=== PATIENT | female | born 1955 | race Caucasian/White ===

== ENCOUNTER 2023-11-27 11:39 | Emergency (ER) | payer MEDICARE, BC, SELFPAY ==
[2023-11-27 11:40] VITALS: BP 133/74; PULSE 104; RESP 16; TEMP 36.4; O2SAT 98; BMI 33.1
--- NOTE | 2023-11-27 12:21 | MRI_ITS ---
HISTORY: acute on chronic pain, thigh weakness, lumbar discectomy 1991. TECHNIQUE: Multiplanar and multisequence MR images of the lumbar spine were obtained before and after the intravenous administration of 19 mL Clariscan. 204 images. COMPARISON: None. FINDINGS: VERTEBRAE: Vertebral body heights maintained. Degenerative bone marrow endplate changes of T12, L1, and L4-5. ALIGNMENT: No anterior or posterior subluxation. SPINAL CANAL: Normal morphology and position of the conus medullaris at T12-L1. No epidural collection or enhancing intradural extramedullary mass. INTERVERTEBRAL DISCS: T12-L1: No significant signal abnormality, posterior disc protrusion, central canal stenosis, or foraminal narrowing based on the sagittal images. L1-2: Mild disc bulge with facet arthropathy resulting in minimal narrowing of the thecal sac. No significant foraminal narrowing. L2-3: Moderate disc bulge with facet arthropathy superimposed on a developmentally narrow spinal canal resulting in severe central canal stenosis and mild left foraminal narrowing L3-4: Mild disc bulge with facet arthropathy resulting in mild central canal stenosis and bilateral foraminal narrowing. L4-5: Mild disc bulge with facet arthropathy. Left laminotomy. No significant central canal stenosis. Mild-moderate bilateral foraminal narrowing. L5-S1: Mild left paracentral disc protrusion extending into the left lateral recess with left S1 nerve root impingement, no significant central canal stenosis, and mild left foraminal narrowing. SOFT TISSUES: No paraspinal fluid collection. 4 cm right lower pole renal cyst. MRI/Spine Lumbar W/WO Contrast IMPRESSION: Degenerative disc and facet disease superimposed on a developmentally narrow spinal canal at L2-3 resulting in severe spinal canal stenosis and mild left foraminal narrowing. Multilevel degenerative disc disease with mild spinal canal stenosis and bilateral foraminal narrowing of L3-4. Postoperative and change of L4-5 with bilateral foraminal narrowing. Left paracentral disc protrusion of L5-S1 resulting in left nerve root impingement and mild left foraminal narrowing. Electronically Signed: Kellie Garza MD at 15:35 EDT ,
--- NOTE | 2023-11-27 13:01 | EDS_ITS ---
HPI History of Present Illness Chief Complaint: Back Informant: patient Narrative Narrative: Patient is a 67-year-old female visiting from [place] with her daughter presenting with worsening low back pain. Patient has a remote history of L5/S1 discectomy performed in 1991. States every once in a while her back will spasm but she has been doing well. She notes for the past 2 to 3 weeks however she is been having worsening low back pain and spasms. It is worse on the right. She denies any radiation pains. She also feels that she is getting some weakness is worsening in her bilateral thighs. Daughter notes that sometimes she seems to be dragging her feet. She actually has an appointment to see his Dr. Salinas, spine surgery next week. Patient has been taking old oxycodone as well as methocarbamol with minimal relief of her symptoms. Did recently drive here from [place] and a lot of time in the car. Did try to walk around. Does have mechanical valve as well as clotting disorder and is on Coumadin. Denies any bowel or bladder incontinence. Denies any saddle anesthesia. PFSH PFSH Home Medications ?Medication ?Instructions ?Recorded ?Last Taken ?Type oxycodone-acetaminophen 5 mg-325 1 tab PO Q8H PRN pain 3 days #10 11/27/23 Unknown Rx mg tablet (Percocet) tabs prednisone 20 mg tablet 40 mg (2 x 20 mg) PO DAILY #10 tabs 11/27/23 Unknown Rx Allergy/AdvReac Type Severity Reaction Status Date / Time latex Allergy Intermediate Itching Verified 11/27/23 11:39 Social History Smoking Status: Never smoker ROS ROS ED Constitutional Constitutional ED: Denies chills or fever(s) Cardiovascular Cardiovascular: Denies chest pain Respiratory/Chest Respiratory/Chest: Denies dyspnea Gastrointestinal Gastrointestinal: Denies constipation or diarrhea Genitourinary Genitourinary ED: Denies dysuria or hematuria Musculoskeletal Musculoskeletal: Reports back pain Integumentary Denies rash Neurologic Neurologic: Reports weakness; Denies headache(s) or paresthesias Hematologic/Lymphatic Hematologic/Lymphatic: Reports easy bleeding and easy bruising EXAM Physical Exam Const Vital Signs: 11/27/23 11:40 11/27/23 13:39 Temperature 97.5 F L Temperature Source Temporal Pulse Rate 104 H 89 Respiratory Rate 16 14 Blood Pressure 133/74 H 136/66 H Blood Pressure Mean 93 89 Pulse Ox 98 98 Oxygen Delivery Method Room Air Room Air Positive well nourished and well developed General Appearance ED: well developed and NAD HEENT Reports moist mucous membranes Neck supple Resp normal respiratory effort and clear to auscultation bilaterally Cardio regular rate and regular rhythm GI normal to inspection, nondistended, normoactive bowel sounds and soft to palpation Back/Spine normal to inspection Back/Spine Narrative: Unable to elicit patellar reflexes bilaterally. No clonus at the ankles. Patient has difficulty standing on her heels and is slightly unsteady with trying to turn in a tight pechanga. She otherwise has a steady gait. As she is able to stand on the balls of her feet. Tenderness palpation over the right L5 paraspinal area. Sensation intact in all dermatomes. Thoracic Spine / Upper Back: Negative for paraspinal muscle tenderness Lumbar Spine / Lower Back: ROM limited Neuro oriented x3 and no sensory deficits noted Sensorium / Orientation: alert Psych mental status grossly normal Skin no rashes or lesions noted and no wounds MDM MDM MDM Narrative Medical decision making narrative: Patient is evaluated for worsening back pain. Daughter notes that she seems to start to drag her feet and concerns that she is developing a foot drop. She does have some weakness trying to put her weight on her heels. She is supposed to see Dr. Salinas in 5 days. I did touch base with him and he is not a possible obtained his MRI would be very helpful. As patient is on Coumadin she is at higher risk of epidural hematoma however she has not had any recent injections. She does not have any cauda equina symptoms at this time. I was able to call for MRI and I do have availability this afternoon. Initially MRI without contrast is ordered however I was notified by the technicians that she had a some sclerosing versus osteo noted of her vertebral bodies so IV contrast was ordered on. I did also add on basic labs including CBC, BMP as well as a CRP and ESR. Lab work is largely normal except for mild anemia with a hemoglobin 10.6. I do not think is associated her presentation today. Patient is given a Lidoderm patch in the ER. Will place on a short course of prednisone and given a refill for oxycodone for further pain control. Patient and daughter agreeable this plan of care. MRI shows left paracentral disc protrusion of L5/S1 resulting in left nerve root impingement and mild left foraminal narrowing as well as postoperative pain changes and multilevel degenerative disc disease. At this time I do not think patient requires emergent decompression or surgery. I feel that she can continue to follow-up outpatient. Patient and daughter agreeable to plan of care. Patient is discharged home in improved and stable condition. Lab Data Attestation: I reviewed the patient's lab results. Labs: Laboratory Results - last 24 hr 11/27/23 13:00 WBC 5.4 RBC 3.39 L Hgb 10.6 L Hct 33.7 L MCV 99.4 H MCH 31.3 MCHC 31.5 L RDW Std Deviation 48.9 H RDW Coeff of Aretha 13.3 Plt Count 273 MPV 10.2 Immature Gran % (Auto) 0.200 Neut % (Auto) 57.0 Lymph % (Auto) 28.8 [place] % (Auto) 10.3 H Eos % (Auto) 3.0 Baso % (Auto) 0.7 Absolute Neuts (auto) 3.1 Absolute Lymphs (auto) 1.56 Nucleated RBC % 0 ESR 14 Sodium 140 Potassium 4.3 Chloride 109 H Carbon Dioxide 29.0 Anion Gap 2 L BUN 14 Creatinine 0.83 Estim Creat Clear Calc 76.69 Est GFR (MDRD) Af Amer 88 Est GFR (MDRD) Non-Af 73 BUN/Creatinine Ratio 16.8 Glucose 109 H Calcium 9.1 C-React Prot Ext Range < 2.90 Radiography Diagnostic Testing: Clinical Impression(s) from Imaging Studies Lumbar Spine MRI 11/27/23 12:21 IMPRESSION: Degenerative disc and facet disease superimposed on a developmentally narrow spinal canal at L2-3 resulting in severe spinal canal stenosis and mild left foraminal narrowing. Multilevel degenerative disc disease with mild spinal canal stenosis and bilateral foraminal narrowing of L3-4. Postoperative and change of L4-5 with bilateral foraminal narrowing. Left paracentral disc protrusion of L5-S1 resulting in left nerve root impingement and mild left foraminal narrowing. Electronically Signed: Kellie Garza MD at 15:35 EDT , Discharge Plan Triage Chief Complaint: Back ED Provider: Vivienne Martinez Dx/Rx/DC Orders Clinical Impression: Low back pain, Degenerative disc disease, lumbar Instructions: ED Back Pain (Acute or Chronic) Prescriptions: New prednisone 20 mg tablet 40 mg PO DAILY Qty: 10 0RF oxycodone-acetaminophen [Percocet] 5-325 mg tablet 1 tab PO Q8H PRN (Reason: pain) 3 Days Qty: 10 0RF Primary Care Provider: Drea Jones Referrals: Noah Salinas DO [[facility] Staff - Active Staff] - Care Physician,No Primary [Non-Staff] - Activity Restrictions/Additional Instructions: Please continue to follow-up outpatient with spine as discussed. Take medication as prescribed. Return if you have progression worsening your symptoms. Print Language: Upper Sorbian Disposition Disposition: Home, Self Care
[2023-11-27] MEDS: Lidocaine 5% Patch 1 PATCH TOPICAL (13:08)
[2023-11-27 13:39] VITALS: BP 136/66; PULSE 89; RESP 14; O2SAT 98
[2023-11-27 15:34] LABS: Anion Gap 2 (5-15); BUN 14 mg/dL (7-18); BUN/Creat Ratio 16.8 RATIO (10-20); CRP < 2.90 mg/L (0.0-3.0); Calcium,Total 9.1 mg/dL (8.5-10.1); Chloride 109 mmol/L (98-107); Creatinine, Serum 0.83 mg/dL (0.55-1.02); EST Glomerular Filtration Rate 73 mL/min (>60); Est Glom Filt Rate - Afr Amer 88 mL/min (>60); Estimated Creatinine Clearance 76.69 ml/min; Glucose 109 mg/dL (74-106); Potassium 4.3 mmol/L (3.5-5.1); Sodium Level 140 mmol/L (136-145)
[2023-11-27 15:48] LABS: Absolute Lymphocyte Count 1.56 X10^3/uL (0.83-4.51); Absolute Neutrophil Count 3.1 X10^3/uL (2.0-7.7); Basophil# 0.04 X10^3/uL; Basophil% 0.7 % (0-1); Eosinophil# 0.16 X10^3/uL; Erythrocyte Sedimentation Rate 14 mm/hr (0-30); Hematocrit 33.7 % (37-47); Hemoglobin 10.6 g/dL (12.0-15.0); Lymphocyte # 1.56 X10^3/ul (0.83-4.51); Lymphocyte % 28.8 % (19-41); Mean Corp Hgb Conc 31.5 g/dL (32-36); Mean Corpuscular Hgb 31.3 pg (27.0-32.0); Mean Corpuscular Volume 99.4 fL (81-99); Mean Platelet Vol. 10.2 fl (6.2-12.0); Monocyte# 0.56 X10^3/uL; Monocyte% 10.3 % (0-10); NRBC Flagged by Analyzer 0 % (0-5); Neutrophil # 3.09 X10^3/uL (2.7-7.7); Platelet Count 273 K/mm3 (150-450); RBC Distribution Width CV 13.3 % (11.6-14.6); RBC Distribution Width SD 48.9 fl (35.1-43.9); Red Blood Count 3.39 M/mm3 (4.2-5.4); White Blood Count 5.4 K/mm3 (4.4-11.0)
[2023-11-27 16:21] VITALS: BP 118/58; PULSE 78; RESP 16; TEMP 36.2; O2SAT 94
== END 2023-11-27 16:22 | disposition home or self-care (01) ==
PROVIDERS: Emergency Provider Emergency Medicine; Visit Provider Emergency Medicine
DX: M48.061 Spinal stenosis, lumbar region without neurogenic claudication (principal); G89.18 Other acute postprocedural pain; M51.360 Other intervertebral disc degeneration, lumbar region with discogenic back pain only; D68.9 Coagulation defect, unspecified; D64.9 Anemia, unspecified; Z79.01 Long term (current) use of anticoagulants
CPT/HCPCS: 72158; 80048; 85025; 85652; 86140; 99282; A9575; A4216

== ENCOUNTER → 2024-05-11 | Outpatient (CLI) | payer MEDICARE, BC, SELFPAY ==
--- NOTE | 2024-05-11 09:17 | RAD_ITS ---
PROCEDURE: ESOPHAGUS DUAL CONTRAST 05/11/2024 REASON FOR EXAM: DYSPHAGIA - WITH TABLET TECHNIQUE: FLUOROSCOPIC TIME: 47 seconds. FLUOROGRAPHIC IMAGES: 76 COMPARISON: None. FINDINGS: The patient ingested barium. Multiple images were obtained. The esophagus is unremarkable. No evidence of obstruction. No evidence of gastroesophageal reflux. No mass lesion is seen. The patient ingested a 12 mm tablet the barium without any difficulty. RAD/Esophagus Dual Contrast IMPRESSION: Unremarkable esophagram. Reading Location: [facility]
== END | disposition home or self-care (01) ==
LOC: RAD 09:14
PROVIDERS: Referring Provider Nurse Practitioner Acute Care; Visit Provider Nurse Practitioner Acute Care
DX: R13.10 Dysphagia, unspecified (principal)
CPT/HCPCS: 74221

== ENCOUNTER → 2024-05-12 | Outpatient (CLI) | payer MEDICARE, BC, SELFPAY ==
[2024-05-12 09:48] LABS: AST(SGOT) 23 U/L (<=31); Alanine Aminotransfer ALT/SGPT 12 U/L (<=34); Albumin, Serum 3.8 g/dL (3.4-4.8); Alkaline Phosphatase 75 U/L (35-104); Bilirubin, Direct 0.17 mg/dL (0.00-0.30); Cholesterol 177 mg/dL (<=200); Globulin 2.7 g/dL (2.2-4.2); High Density Lipoprotein 47 mg/dL; Low Density Lipoprotein Calc. 100 mg/dL; Protein, Total 6.5 g/dL (5.9-8.4); Total Bilirubin 0.37 mg/dL (0.00-1.30); Triglycerides 147 mg/dL; Very Low Density Lipoprotein 29 mg/dL (5-40); cholesterol:hdl ratio screen 3.75
== END | disposition home or self-care (01) ==
LOC: LAB 08:23
PROVIDERS: Referring Provider Internal Medicine Cardiovascular Disease; Visit Provider Internal Medicine Cardiovascular Disease
DX: E78.5 Hyperlipidemia, unspecified (principal); I35.9 Nonrheumatic aortic valve disorder, unspecified
CPT/HCPCS: 36415; 80061; 80076

== ENCOUNTER → 2024-06-10 | Outpatient (CLI) | payer MEDICARE, BC, SELFPAY ==
--- NOTE | 2024-06-10 14:50 | ECHOCS_ITS ---
Reason For Study Reason For Study: PROSTHETIC HEART VALVE Procedure This was a 2D Doppler, Color Flow transthoracic echocardiogram. The study was technically difficult. Exam performed in department. Left Ventricle Normal LV size. The left ventricular ejection fraction is 60 %. No regional wall motion abnormalities noted. Right Ventricle Normal RV size. Normal systolic function. Atria Normal left atrium. Normal right atrium. Mitral Valve Normal mitral valve. Tricuspid Valve Normal tricuspid valve. Mild (1+) tricuspid valve insufficiency. Pulmonary artery systolic pressure is 24 mmHg. Aortic Valve Peak aortic valve gradient 11.7 mmHg. Mean aortic valve gradient 7 mmHg. Bioprosthetic aortic valve. Pulmonic Valve Normal pulmonic valve. Great Vessels Normal aortic root. The pulmonary artery is normal size. Inferior vena cava collapse with respiration. Pericardium/Pleural No pericardial effusion. Medication 22 gauge I.V. with prn adaptor inserted into right arm. Diluted definity 3ml given slow IV push to enhance endocardial definition. MMode/2D Measurements & Calculations LVIDd: 4.3 cm IVSd: 1.2 cm LVOT diam: 2.0 cm LVIDs: 2.9 cm LVPWd: 1.2 cm RVDd: 3.6 cm FS: 34.2 % LVOT area: 3.1 cm2 Ao root diam: 3.3 cm asc Aorta Diam: 3.5 cm LAV(MOD- bp): 40.0 ml LAV(MOD- bp) Indexed: 20.3 ml/m2 LAV(MOD- sp2): 40.4 ml LAV(MOD- sp4): 38.6 ml SV(MOD-sp4): 53.5 ml SV(sp4- el): 56.5 ml LVAd ap4: 27.6 cm2 LVLd ap4: 6.9 cm SI(MOD-sp4): 27.2 ml/m2 EDV(MOD-sp4): 89.2 ml EDV(sp4-el): 93.7 ml LVAs ap4: 16.3 cm2 LVLs ap4: 6.0 cm ESV(MOD-sp4): 35.6 ml ESV(sp4-el): 37.2 ml EF(MOD-sp4): 60.0 % EF(sp4-el): 60.3 % LA A4 area: 15.5 cm2 LA dimension(2D): 3.5 cm RA A4 area: 14.0 cm2 TAPSE: 1.7 cm Time Measurements MV dec time: 0.30 sec Doppler Measurements & Calculations MV E max delvis: 112.2 cm/sec Lat Peak E' Delvis: 10.1 cm/sec Med Peak E' Delvis: 7.5 cm/sec MV A max delvis: 129.4 cm/sec E/E' lat: 11.1 E/E' med: 14.9 MV E/A: 0.87 Ao V2 max: 171.4 cm/sec LV V1 max: 149.2 cm/sec SV(LVOT): 102.2 ml Ao max P.7 mmHg LV V1 max P.9 mmHg Ao V2 mean: 123.8 cm/sec LV V1 mean P.7 mmHg Ao mean P.7 mmHg LV V1 mean: 100.7 cm/sec Ao V2 VTI: 36.2 cm LV V1 VTI: 33.1 cm AV (velocity ratio): 0.91 JAMIL(I,D): 2.8 cm2 JAMIL(V,D): 2.7 cm2 PA V2 max: 77.6 cm/sec TR max delvis: 226.6 cm/sec TR max P.5 mmHg ECHO/Echo Complete W/ Contrast Interpretation Summary Normal LV size. The left ventricular ejection fraction is 60 %. Pulmonary artery systolic pressure is 24 mmHg. Bioprosthetic aortic valve. Mean aortic valve gradient 7 mmHg. Contrast injection was performed. Ordering Physician: Emory Adams Referring Physician: Emory Adams Performed By: Eboni Melissa RDCS
== END | disposition home or self-care (01) ==
LOC: CVS 14:47
PROVIDERS: Referring Provider Internal Medicine Cardiovascular Disease; Visit Provider Internal Medicine Cardiovascular Disease
DX: Z95.2 Presence of prosthetic heart valve (principal)
CPT/HCPCS: 93306; Q9957; A4216; C8929

== ENCOUNTER 2024-07-02 05:27 | Day surgery (SDC) | payer MEDICARE, BC, SELFPAY ==
--- NOTE | 2024-06-30 16:45 | PAT.ANE_ITS ---
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 When Was Last Pacemaker Check QUESTION #4 FULL TEXT: You/Your Family Experience fever (hyperthermia) with Anesthesia Last Oral Intake Last Oral intake: Last Oral Intake NPO since Meds taken in AM with sips of water? Meds patient instructed to take am of surgery PONV PONV - tamping machine operator: PONV - tamping machine operator Female Yes 06/30/24 16:03 HX of Motion Sickness No 06/30/24 16:03 HX of N/V After Surgery No 06/30/24 16:03 Non-Smoker Yes 06/30/24 16:03 Duration of Surgery greater No 06/30/24 16:03 than 60 minutes Number of Risk Factors 2 06/30/24 16:03 PONV Score Moderate Risk 06/30/24 16:03 Height & Weight Height & Weight: Anesthesia: Height & Weight Height 5 ft 6 in 04/28/24 11:25 Respiratory Assessment Respiratory Assessment - tamping machine operator: Respiratory Tract Infection Hx - tamping machine operator Hx Respiratory Tract Infection No 06/30/24 16:03 STOP Sleep Apnea STOP Sleep Apnea - tamping machine operator: STOP Sleep Apnea - tamping machine operator Hx Hypertension No 06/30/24 16:03 Hx Sleep Apnea No 06/30/24 16:03 CPAP BIPAP Do you snore loudly (louder No 06/30/24 16:03 than talking or can be heard Do you often feel tired/ No 06/30/24 16:03 fatigued/ sleepy during daytime? Has anyone observed you stop No 06/30/24 16:03 breathing during sleep? STOP Results Negative 06/30/24 16:03 QUESTION #5 FULL TEXT : Do you snore loudly (louder than talking or can be heard through closed doors)? 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 Specify any problems Hx of Preganancy in last 3 No 06/30/24 16:03 Months Nurse Filling Out Transfusion VLEHMAN 06/30/24 16:03 & Questions: Date: 06/30/24 06/30/24 16:03 Time: 16:06/30/24 16:03 Patient unable to answer at this time (ie. confused, unrespo /Reproduction History /Reproductive History - tamping machine operator: /Reproductive Hx- tamping machine operator Hx Now No 06/30/24 16:03 Gestational Age (in weeks): EDC: Hx Hx Para Hx Section SAB PFSH Medical History Post-menopausal Wears glasses Alcohol use History of steroid therapy High cholesterol Back pain History of diverticulitis Gastric reflux Non-smoker History of edema History of echocardiogram Cardiology follow-up encounter retirement (current) use of anticoagulants Hypertension History of transcatheter aortic valve replacement (TAVR) Hyperlipidemia Anemia Ascending aorta dilatation Arthritis DVT (deep venous thrombosis) Factor II deficiency Home Medications ?Medication ?Instructions ?Recorded ?Last Taken ?Type aspirin 81 mg tablet,delayed 81 mg PO QDAY 03/31/24 Un known History release (Adult Aspirin Regimen) clobetasol 0.05 % topical cream 1 applic topical BID P RN ECZEMA 03/31/24 Unknown History warfarin 4 mg tablet 4 mg PO QDAY 03/31/24 Unknow n History warfarin 5 mg tablet 5 mg PO QDAY 03/31/24 Unknow n History atorvastatin 40 mg tablet 40 mg PO QDAY 04/27/24 Unkno wn History cholecalciferol (vitamin D3) 250 250 mcg PO QDAY 04/27 Unknown History mcg (10,000 unit) capsule esomeprazole magnesium 40 mg 40 mg PO QDAY #90 caps Unknown Rx capsule,delayed release gruns daily comprehensive nutrition 1 ea PO DAILY 05/19 Unknown History hydrocortisone 2.5 % topical cream 1 applic IL QD-BID PRN hemorrhoids 04/27/24 Unknown Rx with perineal applicator #30 grams (Anusol-HC) ondansetron HCl 4 mg tablet 4 mg PO .COMPLEX #5 tabs 0 04/27/24 Unknown Rx peg 3350-sod sulf,[id number] See Rx Instructions PO .COMPLEX #2 04/27/24 Unknown Rx 178.7-7.3-0.5-1.12-0.9 gram oral mL soln (Suflave) thiamine HCl (vitamin B1) 50 mg 50 mg PO QDAY 04/27/24 Unknown History tablet amoxicillin 500 mg capsule 500 mg PO ONCE #4 caps 08/19 Unknown Rx Allergy/AdvReac Type Severity Reaction Status Date / Time latex Allergy Intermediate Itching Verified 06/30/24 15:58 Family History Mother No problems noted. Father No problems noted. Surgical History History of discectomy History of cholecystectomy Social History Smoking Status: Never smoker alcohol intake: current substance use type: does not use caffeine: Yes Audit: Pertinent Findings Pertinent Findings EKG Perinent findings: April 28, 2024. Sinus rhythm. Left atrial enlargement. Poor R wave progression. Echo (EF%) pertinent findings: 06/10/2024. EF 60%. PASP is 24 mmHg. Bioprosthetic aortic valve in place. Mean aortic valve gradient is 7 mmHg. Peak gradient is 11.7 mmHg. Consult pertinent findings: April 28, 2024. Dr. Adams. 1. Aortic valve-status post SAVR in 2023. Last echo in June 2023 showed normal function and mild to moderate MR. Patient is to continue SBE prophylaxis. EKG shows sinus rhythm, left atrial enlargement, and poor R wave progression. Recheck echo. (See above) 2. Hypertension?[id number]. 3. Ascending aortic dilation?acute-status post ascending aorta repair per patient. No op report. 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 Needs to be on Coumadin Recommendation Anesthesia Recommendation Anesthesia recommendation: OPTIMIZED for anesthesia
[2024-07-02] VITALS (7 sets, daily range): BP systolic 87–122; BP diastolic 50–60; PULSE 51–85; RESP 16–18; TEMP 35.9–36.4; O2SAT 95–100; BMI 31.5
[2024-07-02] MEDS: Lactated Ringers 1,000 ML 15 ML IV (06:16)
--- NOTE | 2024-07-02 06:23 | PCM.PRE.AN2 ---
ASA Classification* ASA Classification ASA Classification: 3 Assessment & Plan Anesthesia* Anesthesia Assessment Anesthesia Assessment: Discussed sedation and/or anesthesia options, risks, benefits, and alternatives with patient/parents/legal guardian/POA. Questions invited. The patient/parents/legal guardian/POA seems to understand and agrees to proceed with anesthesia plan. Reviewed the physical assessment, medical history, allergy history and patient home medications list prior to surgery/procedure/anesthetic and documented any changes. Performed airway and anesthesia risk assessments. Anesthesia Type Anesthesia Type: MAC History Source History Obtained from:: Patient and Chart Anesthesia Focused Assessment* Temperature: 96.7 F Pulse Rate: 85 Blood Pressure: 122/54 Respiratory Rate: 16 Pulse Ox: 95 Oxygen Delivery Method: Room Air Airway Assessment Mouth opens: >3 cm Mallampati Score: IV Teeth Condition: Caps/Crowns (Patient has several crowns. They are all tight.) Neck Range of motion (ROM): Full ROM Focused Labs Anesthesia Preop lab: CBC WBC 5.4 K/mm3 (4.4-11.0) 11/27/23 13:00 11/27/23 RBC 3.39 M/mm3 (4.2-5.4) L 11/27/23 13:00 11/27/23 Hgb 10.6 g/dL (12.0-15.0) L 11/27/23 13:00 11/27/23 Hct 33.7 % (37-47) L 11/27/23 13:00 11/27/23 Plt Count 273 K/mm3 (150-450) 11/27/23 13:00 11/27/23 CHEMISTRY Potassium 4.3 mmol/L (3.5-5.1) 11/27/23 13:00 11/27/23 Sodium 140 mmol/L (136-145) 11/27/23 13:00 11/27/23 BUN 14 mg/dL (7-18) 11/27/23 13:00 11/27/23 Creatinine 0.83 mg/dL (0.55-1.02) 11/27/23 13:00 11/27/23 Glucose 109 mg/dL (74-106) H 11/27/23 13:00 11/27/23 COAG INR 2.1 06/30/24 09:11 06/30/24 Pre-Assessment Diagnosis/Proposed Procedure Planned Operative Procedure(s): EGD, COLONOSCOPY Anesthesia History Anesthesia History - benefits specialist: Anesthesia History - benefits specialist Hx Hospitalization No 06/30/24 16:03 Any Problems With Anesthesia No 06/30/24 16:03 Cholinesterase deficiency No 06/30/24 16:03 You/Your Family Experience No 06/30/24 16:03 fever (hyperthermia) with Relationship Recent Exposure to Contagious No 07/02/24 05:56 Disease Does patient have nerve No 06/30/24 16:03 stimulator Patient instructed to have device shut off --Does patient have Pacemaker No 07/02/24 05:58 or ICD? When Was Last Pacemaker Check QUESTION #4 FULL TEXT: You/Your Family Experience fever (hyperthermia) with Anesthesia Last Oral Intake Last Oral intake: Last Oral Intake NPO since 02:00 07/02/24 05:58 Meds taken in AM with sips of Yes 07/02/24 05:58 water? Meds patient instructed to take am of surgery Any additional information?: Yes NPO since: 02:00 (Patient finished prep at 2 AM.) Meds taken in AM with sips of water?: Yes Meds patient instructed to take am of surgery: Amoxicillin prophylaxis. PONV PONV - benefits specialist: PONV - benefits specialist Female Yes 06/30/24 16:03 HX of Motion Sickness No 06/30/24 16:03 HX of N/V After Surgery No 06/30/24 16:03 Non-Smoker Yes 06/30/24 16:03 Duration of Surgery greater No 06/30/24 16:03 than 60 minutes Number of Risk Factors 2 06/30/24 16:03 PONV Score Moderate Risk 06/30/24 16:03 Height & Weight Height & Weight: Anesthesia: Height & Weight Height 5 ft 6 in 07/02/24 05:58 Weight: 88.541 kg 07/02/24 05:58 Body Mass Index (BMI) 31.5 07/02/24 05:58 Respiratory Assessment Respiratory Assessment - benefits specialist: Respiratory Tract Infection Hx - benefits specialist Hx Respiratory Tract Infection No 06/30/24 16:03 STOP Sleep Apnea STOP Sleep Apnea - benefits specialist: STOP Sleep Apnea - benefits specialist Hx Hypertension No 06/30/24 16:03 Hx Sleep Apnea No 06/30/24 16:03 CPAP BIPAP Do you snore loudly (louder No 06/30/24 16:03 than talking or can be heard Do you often feel tired/ No 06/30/24 16:03 fatigued/ sleepy during daytime? Has anyone observed you stop No 06/30/24 16:03 breathing during sleep? STOP Results Negative 06/30/24 16:03 QUESTION #5 FULL TEXT : Do you snore loudly (louder than talking or can be heard through closed doors)? 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 Specify any problems Hx of Preganancy in last 3 No 06/30/24 16:03 Months Nurse Filling Out Transfusion [facility] 06/30/24 16:03 & Questions: Date: 06/30/24 06/30/24 16:03 Time: 16:05 06/30/24 16:03 Patient unable to answer at this time (ie. confused, unrespo /Reproduction History /Reproductive History - benefits specialist: /Reproductive Hx- benefits specialist Hx Now No 06/30/24 16:03 Gestational Age (in weeks): EDC: Hx Hx Para Hx Section SAB Active Medications Active Medications: Current Medications Generic Name Dose Route Start Last Admin Trade Name Freq PRN Reason Stop Dose Admin Lactated Ringer's 1,000 mls @ 15 mls/hr 07/02/24 05:45 07/02/24 06:16 IV 15 mls/hr .Q48H KRYSTLE Administration PFSH Medical History Post-menopausal Wears glasses Alcohol use History of steroid therapy High cholesterol Back pain History of diverticulitis Gastric reflux Non-smoker History of edema History of echocardiogram 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 Hypertension History of transcatheter aortic valve replacement (TAVR) Hyperlipidemia Anemia Ascending aorta dilatation Arthritis DVT (deep venous thrombosis) Factor II deficiency Home Medications ?Medication ?Instructions ?Recorded ?Last Taken ?Type aspirin 81 mg tablet,delayed 81 mg PO QDAY 03/31/24 07/01/24 History release (Adult Aspirin Regimen) clobetasol 0.05 % topical cream 1 applic topical BID PRN ECZEMA 03/31/24 Unknown History warfarin 4 mg tablet 4 mg PO QDAY 03/31/24 06/28/24 History warfarin 5 mg tablet 5 mg PO QDAY 03/31/24 06/28/24 History atorvastatin 40 mg tablet 40 mg PO QDAY 04/27/24 07/01/24 History cholecalciferol (vitamin D3) 250 250 mcg PO QDAY 04/27/24 07/01/24 History mcg (10,000 unit) capsule esomeprazole magnesium 40 mg 40 mg PO QDAY #90 caps 04/27/24 07/01/24 Rx capsule,delayed release gruns daily comprehensive nutrition 1 ea PO DAILY 04/27/24 06/30/24 History hydrocortisone 2.5 % topical cream 1 applic [place] QD-BID PRN hemorrhoids 04/27/24 Unknown Rx with perineal applicator #30 grams (Anusol-HC) ondansetron HCl 4 mg tablet 4 mg PO .COMPLEX #5 tabs 04/27/24 07/01/24 Rx peg 3350-sod sulf,hsuus-rrf-nge See Rx Instructions PO .COMPLEX #2 04/27/24 07/02/24 Rx 178.7-7.3-0.5-1.12-0.9 gram oral mL soln (Suflave) thiamine HCl (vitamin B1) 50 mg 50 mg PO QDAY 04/27/24 07/01/24 History tablet amoxicillin 500 mg capsule 500 mg PO ONCE #4 caps 06/30/24 07/02/24 05:30 Rx Allergy/AdvReac Type Severity Reaction Status Date / Time latex Allergy Intermediate Itching Verified 07/02/24 05:54 Family History Mother No problems noted. Father No problems noted. Surgical History History of discectomy History of cholecystectomy Social History Smoking Status: Never smoker alcohol intake: current substance use type: does not use caffeine: Yes Review of Systems (Anesthesia) ROS Narrative System reviewed and no additional complaints, except as documented.
--- NOTE | 2024-07-02 06:30 | EGD_PTH ---
PATIENT: RUTH CASTELLANOS LOC: EN U#:[id number] AGE/SX: 68/F ROOM: RE07/02/[address]: Dr. Williams Madison DO : 1955 BED: DIS: 07/02/2024 SPEC #: [id number] RECD: 07/02/24 10:14 STATUS: LILA RERell #: [id number] LEYLA: 07/02/24 06:[address]: Williams Madison DEPT: SURGICAL PATHOLOGY RECD BY: Biju Rankin ENTERED: 07/02/24 11:45 SP TYPE: EGD BIOPSY OTHR DR: Alisia Primary Care Phys Tissues: A - Esophagus, NOS B - COLON BIOPSY Procedures: Surgery Specimen Level IV HEADER OPERATION: Colonoscopy, EGD biopsy PRE-OP DIAGNOSIS: Personal history of colonic polyps, family history of colon cancer in mother, constipation, dysphagia TISSUE SUBMITTED: A- Distal esophagus biopsy, B- Ileocecal valve polyp biopsy MICROSCOPIC DIAGNOSIS A. Esophagus, distal, biopsy: * Squamous mucosa with reactive changes. * Columnar mucosa negative for goblet cell metaplasia. * Negative for dysplasia. B. Ileocecal valve, polyp, biopsy: * Sessile serrated lesion. MICROSCOPIC DESCRIPTION Slides are reviewed. GROSS DESCRIPTION A. Received in formalin in a container labeled with the patient's name, date of , and distal esophagus biopsy are multiple hedrick-pink fragments of mucosal tissue measuring 0.9 x 0.4 x 0.3 cm in aggregate. Submitted in toto in A1. B. Received in formalin in a container labeled with the patient's name, date of , and ileocecal valve polyp biopsy are multiple hedrick-pink fragments of mucosal tissue measuring 0.8 x 0.8 x 0.3 cm in aggregate. Submitted in toto in B1. [facility] 07-02-2024 CPT:16995t1
--- NOTE | 2024-07-02 06:48 | PCM.HP.STD ---
HPI - General General Date of Admission: 07/02/24 Date of Service: 07/02/24 Chief Complaint: dysphagia and personal h/o polyps HPI Narrative RUTH CASTELLANOS, is a 68 F who present with sChief Complaint: personal h/o colon polyps and dysphagia COLON 04/09/2019 severe diverticulosis, internal hemorrhoids - recall colon 5 years - mother with colon CA - personal h/o colon polyps - denies any bleeding - she reports having terrible trouble with hemorrhoids - pain and irritation - sitz baths daily for the past week - prior to this she was seeing blood on toilet tissue 0 but states this was not coming from the hemorrhoids - causing genital irritation - she states she saw a PROFESSOR OF BIOLOGICAL SCIENCES a year ago who recommended she stop using creams and supp and wanted her to come back in 2 weeks for biopsy - she reports she never followed up - causing terrible irritation and itching - she feels external hemorrhoids - denies any vaginal bleeding - she is on Coumadin - 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 Adams tomorrow - just moved here form [place] - daughter works in ED here at [employer] [facility] [facility] - stools are balls - has not been drinking as much water as she normally does - has not been taking gruns with bran muffins she was previously eating - had two 9lb babies - she reports she does not always have sensation with evacuation, decreased urge - she has been off Nexium since November 2023 - c/o dysphagia high in the esophagus - these episodes were not present when on Nexium - HB is manageable - denies any N/V - denies any weight loss PENDING SALE TO [facility] Medical History Post-menopausal Wears glasses Alcohol use History of steroid therapy High cholesterol Back pain History of diverticulitis Gastric reflux Non-smoker History of edema History of echocardiogram Cardiology follow-up encounter 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 (current) use of anticoagulants Hypertension History of transcatheter aortic valve replacement (TAVR) Hyperlipidemia Anemia Ascending aorta dilatation Arthritis DVT (deep venous thrombosis) Factor II deficiency Home Medications ?Medication ?Instructions ?Recorded ?Last Taken ?Type aspirin 81 mg tablet,delayed 81 mg PO QDAY 03/31/24 07/01/24 History release (Adult Aspirin Regimen) clobetasol 0.05 % topical cream 1 applic topical BID PRN ECZEMA 03/31/24 Unknown History warfarin 4 mg tablet 4 mg PO QDAY 03/31/24 06/28/24 History warfarin 5 mg tablet 5 mg PO QDAY 03/31/24 06/28/24 History atorvastatin 40 mg tablet 40 mg PO QDAY 04/27/24 07/01/24 History cholecalciferol (vitamin D3) 250 250 mcg PO QDAY 04/27/24 07/01/24 History mcg (10,000 unit) capsule esomeprazole magnesium 40 mg 40 mg PO QDAY #90 caps 04/27/24 07/01/24 Rx capsule,delayed release gruns daily comprehensive nutrition 1 ea PO DAILY 04/27/24 06/30/24 History hydrocortisone 2.5 % topical cream 1 applic [place] QD-BID PRN hemorrhoids 04/27/24 Unknown Rx with perineal applicator #30 grams (Anusol-HC) ondansetron HCl 4 mg tablet 4 mg PO .COMPLEX #5 tabs 04/27/24 07/01/24 Rx peg 3350-sod sulf,suwxy-qmr-tak See Rx Instructions PO .COMPLEX #2 04/27/24 07/02/24 Rx 178.7-7.3-0.5-1.12-0.9 gram oral mL soln (Suflave) thiamine HCl (vitamin B1) 50 mg 50 mg PO QDAY 04/27/24 07/01/24 History tablet amoxicillin 500 mg capsule 500 mg PO ONCE #4 caps 06/30/24 07/02/24 05:30 Rx Allergy/AdvReac Type Severity Reaction Status Date / Time latex Allergy Intermediate Itching Verified 07/02/24 05:54 Family History Mother No problems noted. Father No problems noted. Surgical History History of discectomy History of cholecystectomy Social History Smoking Status: Never smoker alcohol intake: current substance use type: does not use caffeine: Yes ROS Constitutional Constitutional: Denies fatigue, fever(s), poor appetite, weight gain or weight loss Gastrointestinal Gastrointestinal: Denies belching, bloating, change in bowel habits, change in stool character, chewing difficulty, coffee ground emesis, constipation, cramping, diarrhea, dyspepsia, dysphagia, early satiety, excessive flatus, fecal incontinence, heartburn, hematemesis, hematochezia, hemorrhoids, loose stools, melena, nausea, odynophagia, rectal bleeding, tenesmus, vomiting or weight changes Vital Signs Vital Signs Vital Signs: 07/02/24 05:56 07/02/24 05:58 07/02/24 06:31 Temperature 96.7 F L 96.7 F L Temperature Source Temporal Pulse Rate 85 85 Respiratory Rate 16 16 Respiratory Pattern Normal Blood Pressure 122/54 H 122/54 H Blood Pressure Mean 76 Blood Pressure Source Monitor Blood Pressure Position Semi-Fowlers Blood Pressure Location Left Arm Pulse Ox 95 95 Oxygen Delivery Method Room Air Room Air Weight Weight: 195 lb 3.2 oz Body Mass Index (BMI) 31.5 Physical Exam Const alert, oriented x3, no apparent distress and healthy appearing General Appearance: cooperative GI normal to inspection, nondistended, normoactive bowel sounds, soft to palpation, non-tender and non-distended Percussion: normal to percussion Rectal Exam: deferred Assessment & Plan Assessment/Plan (1) Dysphagia: (2) Constipation: (3) Family history of colon cancer in mother: (4) Personal history of colonic polyps: PLAN: Assessment and Plan Assessment and Plan (1) Personal history of colonic polyps: Status: Acute (2) Family history of colon cancer in mother: Status: Acute (3) Constipation: Status: Acute (4) Dysphagia: Status: Acute Orders: Orders Esophagus Dual Contrast Today R13.10 - Dysphagia, unspecified Referrals Gastroenterology K59.00 - Constipation, unspecified Medications: New hydrocortisone 2.5% (Anusol-HC) 1 applic [place] QD-BID PRN 30 grams 0RF hemorrhoids peg 3350-sod sulf,zjoy-ylr-sgi 178.7-7.3-0.5 gram (Suflave) take as directed for split dose bowel prep 2 mL 0RF ondansetron HCl 4 mg orally; two tablets PO two hours prior to start of bowel prep and one every 4 hours as needed for N/V 5 tabs 0RF esomeprazole magnesium take 30 minutes before breakfast every morning 40 mg PO QDAY 90 caps 1RF Plan 68y/o female presents for consultation with a personal history of colon polyps. Labs completed 11/27/2023 reveal HGB 10.6, normal CRP. Her family history is significant for mother with colon cancer. She complains of rectal/vaginal irritation secondary to fecal leakage secondary to hemorrhoids. She complains of difficulty with fecal evacuation and decreased sensation to have a BM. We have discussed the importance of avoiding straining with BM as well as high fiber diet with increased water intake. Lastly, she complains of upper esophageal dysphagia since discontinuing PPI. I have recommended she resume PPI and schedule Esophagram and EGD. Patient Instructions: Colonoscopy with hemorrhoid banding - Suflave EGD Esophagram with tablet - complete prior to EGD Will require approval to hold Coumadin prior to procedure Anorectal Manometry - schedule at [facility] Continue Sitz Bath Anusol RX sent to local pharmacy Avoid straining with bowel movements Flip Winkler
--- NOTE | 2024-07-02 07:37 | PCM.POST.ANE ---
Anesthesia: Postop Eval I Current Vital Signs Temperature: 97 F Pulse Rate: 72 Blood Pressure: 87/50 Respiratory Rate: 16 Pulse Ox: 97 Oxygen Delivery Method: Room Air Assessment Airway patent: Yes Spontaneous unlabored respirations: Yes Mental status: Awake nausea: No Vomiting: No Anesthesia Complication: No Fluid Hydration Crystalloid volume administer (ml): 600 Total IV fluid infused: 600 Progress Note Anesthesia document: Postop Eval 1 completed: Yes
--- NOTE | 2024-07-02 07:38 | OP.CCLET_ITS ---
07/02/2024 No Primary Care Physician Re : Upper GI endoscopy procedure for Vicente Bonds Dear Care Physician This procedure was performed on June. My impressions and recommendations are as follows: Impressions : - Z-line irregular, 40 cm from the incisors. Biopsied. - Moderate Schatzki ring. - Medium-sized hiatal hernia. - Enlarged gastric folds. - No gross lesions in the duodenal bulb. Recommendations : - Discharge patient to home. - Resume previous diet. - Continue present medications. - Await pathology results. My findings are described in the full procedure note, which is enclosed. If I can be of further assistance, please feel free to contact me at . Sincerely, Williams Madison, 07/02/2024 7:37:27 AM This report has been signed electronically.
--- NOTE | 2024-07-02 07:38 | OP.EGD_ITS ---
Patient Name: Vicente Bonds Procedure Date: 07/02/2024 6:17 AM Date of : 1955 Age: 68 Procedure: Upper GI endoscopy Indications: Dysphagia Providers: Williams Madison DO Referring MD: No Primary Care Physician Medicines: Monitored Anesthesia Care Patient Profile: This is a 68 year old female. Refer to note in patient chart for documentation of history and physical. Patient has symptoms of acute dysphagia. Complications: No immediate complications. Procedure: Pre-Anesthesia Assessment: - Prior to the procedure, a History and Physical was performed, and patient medications and allergies were reviewed. The patient is competent. The risks and benefits of the procedure and the sedation options and risks were discussed with the patient. All questions were answered and informed consent was obtained. Patient identification and proposed procedure were verified by the physician. Mental Status Examination: alert and oriented. Airway Examination: normal oropharyngeal airway and neck mobility. Respiratory Examination: clear to auscultation. CV Examination: normal. Prophylactic Antibiotics: The patient does not require prophylactic antibiotics. Prior Anticoagulants: The patient has taken no anticoagulant or antiplatelet agents except for NSAID medication. ASA Grade Assessment: II - A patient with mild systemic disease. After reviewing the risks and benefits, the patient was deemed in satisfactory condition to undergo the procedure. The anesthesia plan was to use monitored anesthesia care (MAC). Immediately prior to administration of medications, the patient was re-assessed for adequacy to receive sedatives. The heart rate, respiratory rate, oxygen saturations, blood pressure, adequacy of pulmonary ventilation, and response to care were monitored throughout the procedure. The physical status of the patient was re-assessed after the procedure. After obtaining informed consent, the endoscope was passed under direct vision. Throughout the procedure, the patient's blood pressure, pulse, and oxygen saturations were monitored continuously. The Colonoscope was introduced through the mouth, and advanced to the second part of duodenum. The upper GI endoscopy was accomplished without difficulty. The patient tolerated the procedure well. Scope In: 7:02:24 AM Scope Out: 7:06:19 AM Total Procedure Duration Time 0 hours 3 minutes 55 seconds Findings: The Z-line was irregular and was found 40 cm from the incisors. Biopsies were taken with a cold forceps for histology. Verification of patient identification for the specimen was done. Estimated blood loss was minimal. A moderate Schatzki ring was found in the lower third of the esophagus. A medium-sized hiatal hernia was present. Diffuse prominent gastric folds were found in the gastric body. No gross lesions were noted in the duodenal bulb. Impression: - Z-line irregular, 40 cm from the incisors. Biopsied. - Moderate Schatzki ring. - Medium-sized hiatal hernia. - Enlarged gastric folds. - No gross lesions in the duodenal bulb. Recommendation: - Discharge patient to home. - Resume previous diet. - Continue present medications. - Await pathology results. Procedure Code(s): --- Professional --- 12089, Esophagogastroduodenoscopy, flexible, transoral; with biopsy, single or multiple CPT copyright 2021 [employer]. All rights reserved. The codes documented in this report are preliminary and upon icd 9 coder review may be revised to meet current compliance requirements. Williams Madison DO 07/02/2024 7:37:27 AM This report has been signed electronically. Number of Addenda: 0 Note Initiated On: 07/02/2024 6:17 AM
--- NOTE | 2024-07-02 07:42 | OP.CCLET_ITS ---
07/02/2024 No Primary Care Physician Re : Colonoscopy procedure for Vicente Bonds Dear Care Physician This procedure was performed on June. My impressions and recommendations are as follows: Impressions : - Diverticulosis in the recto-sigmoid colon, in the sigmoid colon and in the descending colon. - One 10 mm polyp at the ileocecal valve, removed with a jumbo cold forceps. Resected and retrieved. - Stool at the hepatic flexure and in the cecum. Recommendations : - Discharge patient to home. - Resume previous diet. - Continue present medications. - Await pathology results. - Repeat colonoscopy in 5 years for surveillance. My findings are described in the full procedure note, which is enclosed. If I can be of further assistance, please feel free to contact me at . Sincerely, Williams Madison, 07/02/2024 7:41:42 AM This report has been signed electronically.
--- NOTE | 2024-07-02 07:42 | OP.COLON_ITS ---
Patient Name: Vicente Bonds Procedure Date: 07/02/2024 7:06 AM Date of : 1955 Age: 68 Procedure: Colonoscopy Indications: High risk colon cancer surveillance: Personal history of colonic polyps Providers: Williams Madison DO Referring MD: No Primary Care Physician Medicines: Monitored Anesthesia Care Patient Profile: This is a 68 year old female. Refer to note in patient chart for documentation of history and physical. Patient has symptoms of acute dysphagia. Last Colonoscopy: 5 years ago. Complications: No immediate complications. Procedure: Pre-Anesthesia Assessment: - Prior to the procedure, a History and Physical was performed, and patient medications and allergies were reviewed. The patient is competent. The risks and benefits of the procedure and the sedation options and risks were discussed with the patient. All questions were answered and informed consent was obtained. Patient identification and proposed procedure were verified by the physician. Mental Status Examination: alert and oriented. Airway Examination: normal oropharyngeal airway and neck mobility. Respiratory Examination: clear to auscultation. CV Examination: normal. Prophylactic Antibiotics: The patient does not require prophylactic antibiotics. Prior Anticoagulants: The patient has taken no anticoagulant or antiplatelet agents except for NSAID medication. ASA Grade Assessment: II - A patient with mild systemic disease. After reviewing the risks and benefits, the patient was deemed in satisfactory condition to undergo the procedure. The anesthesia plan was to use monitored anesthesia care (MAC). Immediately prior to administration of medications, the patient was re-assessed for adequacy to receive sedatives. The heart rate, respiratory rate, oxygen saturations, blood pressure, adequacy of pulmonary ventilation, and response to care were monitored throughout the procedure. The physical status of the patient was re-assessed after the procedure. After I obtained informed consent, the scope was passed under direct vision. Throughout the procedure, the patient's blood pressure, pulse, and oxygen saturations were monitored continuously. The Colonoscope was introduced through the anus and advanced to the cecum, identified by appendiceal orifice and ileocecal valve. The colonoscopy was performed without difficulty. The patient tolerated the procedure well. The quality of the bowel preparation was excellent. The ileocecal valve, appendiceal orifice, and rectum were photographed. Scope In: 7:08:13 AM Scope Withdrawal Time 0 hours 13 minutes 22 seconds Scope Out: 7:27:32 AM Total Procedure Duration Time 0 hours 19 minutes 19 seconds Findings: The perianal and digital rectal examinations were normal. Multiple small and large-mouthed diverticula were found in the recto-sigmoid colon, sigmoid colon and descending colon. A 10 mm polyp was found in the ileocecal valve. The polyp was sessile. The polyp was removed with a jumbo cold forceps. Resection and retrieval were complete. Verification of patient identification for the specimen was done. Estimated blood loss was minimal. Stool was found at the hepatic flexure and in the cecum. Impression: - Diverticulosis in the recto-sigmoid colon, in the sigmoid colon and in the descending colon. - One 10 mm polyp at the ileocecal valve, removed with a jumbo cold forceps. Resected and retrieved. - Stool at the hepatic flexure and in the cecum. Recommendation: - Discharge patient to home. - Resume previous diet. - Continue present medications. - Await pathology results. - Repeat colonoscopy in 5 years for surveillance. Procedure Code(s): --- Professional --- 67243, Colonoscopy, flexible; with biopsy, single or multiple CPT copyright 2021 [employer]. All rights reserved. The codes documented in this report are preliminary and upon marriage and family social worker review may be revised to meet current compliance requirements. Williams Madison DO 07/02/2024 7:41:42 AM This report has been signed electronically. Number of Addenda: 0 Note Initiated On: 07/02/2024 7:06 AM
--- NOTE | 2024-07-02 08:12 | PCM.POSTANE2 ---
Anesthesia Postop Eval I Sum Postop Eval Completion status Anesthesia document: Postop Eval 1 completed: Yes Anesthesia Postop Eval I Summary Anesthesia Postop Eval I Summary: Anesthesia Postop Eval I: Assessment Summary Airway patent Yes 07/02/24 07:38 [email or web address] Spontaneous unlabored Yes 07/02/24 07:38 [email or web address] respirations Mental status Awake 07/02/24 07:38 [email or web address] nausea No 07/02/24 07:38 [email or web address] Vomiting No 07/02/24 07:38 [email or web address] Anesthesia Postop Eval I: Fluid Summary Crystalloid volume administer 600 07/02/24 07:38 [email or web address] (ml) Colloids volume administered ( ml) Blood Product volume administered (ml) Total IV fluid infused 600 07/02/24 07:38 [email or web address] Anesthesia Postop Eval I: Summary Notes Anesthesia Complication No 07/02/24 07:38 [email or web address] Anesthesia Complication Comment: Post-operative progress note Anesthesia: Postop Eval II Evaluation Mental status: Awake and Calm Pain Level: 0 nausea: No Vomiting: No Complications Anesthesia Complication: No
== END 2024-07-02 08:09 | disposition home or self-care (01) ==
LOC: EN 05:29 → AC 05:29
PROVIDERS: Visit Provider Internal Medicine Gastroenterology
PROC: 0DJD8ZZ Inspection of Lower Intestinal Tract, Via Natural or Artificial Opening Endoscopic (ICD-10-PCS; CPT 45378; principal; 2024-07-02 06:25)
DX: Z12.11 Encounter for screening for malignant neoplasm of colon (principal); R13.10 Dysphagia, unspecified; I10 Essential (primary) hypertension; Z79.01 Long term (current) use of anticoagulants; K57.30 Diverticulosis of large intestine without perforation or abscess without bleeding; K63.5 Polyp of colon; Z86.0100 Personal history of colon polyps, unspecified; K44.9 Diaphragmatic hernia without obstruction or gangrene; E78.00 Pure hypercholesterolemia, unspecified; Z80.0 Family history of malignant neoplasm of digestive organs; Z95.2 Presence of prosthetic heart valve; Z86.718 Personal history of other venous thrombosis and embolism; Z90.49 Acquired absence of other specified parts of digestive tract; K59.00 Constipation, unspecified
CPT/HCPCS: 45380; 43239; 88305; J2405

== ENCOUNTER 2024-09-01 07:56 | Emergency (ER) | payer MEDICARE, BC, SELFPAY ==
[2024-09-01 07:57] VITALS: BP 116/93; PULSE 101; RESP 16; TEMP 35.8; O2SAT 97; BMI 32.1
--- NOTE | 2024-09-01 08:28 | VDLE_ITS ---
Reason For Study Reason For Study: LLE SWELLING RIGHT LEFT CFV is compressible, spontaneous, phasic, competent GSV is normal. and demonstrates normal augmentation. CFV is compressible, spontaneous, phasic, competent, Procedure and demonstrates normal augmentation. This is a venous duplex using B-mode, color flow and HYPERECHOIC wall thickening noticed in the Proximal spectral Doppler. FV C/W prior DVT. Exam performed portable in ED. Balance of FV is compressible, spontaneous, phasic, A preliminary report was called and/or faxed to Dr. wade and demonstrates normal augmentation. Juan @ 9 am. NON-VASCULAR ANAECHOIC STRUCTURE measuring 1.31 X 2.35cm noted in POP FOSSA SPACE. POP V is compressible, spontaneous, phasic, competent and demonstrates normal augmentation. T/P Trunk is compressible. PTV is compressible. LT PerV is compressible. VL/Venous Duplex US, Unilateral Interpretation Summary Chronic venous changes are noted in the left proximal femoral vein. The remaind er of the left lower extremity deep venous system is patent and compressible. There is no evidence of left lower ex tremity acute deep vein thrombosis. The left great saphenous vein appears patent and compressible segmentally. A non-va scular, anechoic structure is noted in the left popliteal space, measuring 1.31 cm x 2.35 cm. This probably represents a popliteal cyst. Clinical correlation is advised. The right common femoral vein is patent and compressible. Ordering Physician: Vivienne Martinez Referring Physician: NO PCP Performed By: Emeli Rangel, ABELINO, RVT
--- NOTE | 2024-09-01 09:20 | ED.VIS.LOWEX ---
HPI History of Present Illness Chief Complaint: Lower Extremity Injury Informant: patient Narrative Narrative: Patient is a 68-year-old female with history of hypertension, hyperlipidemia, factor II deficiency, DVT in the left lower extremity (in 2006) and long-term Coumadin therapy. She states the past 4 to 5 days she has had discomfort behind her left knee that is worse when she straightens out her legs and mildly uncomfortable when she walks or when she is going up and down stairs. She states she is back to go out of town on a trip and was worried she may be had a blood clot. States her INR this morning her home she was 2.2. She states some chronic swelling of her left leg compared to the right ever since her blood clot. Denies any chest pain shortness of breath. No other skin changes reported. No other complaints or concerns at this time. Denies any trauma or injury. 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 (current) use of anticoagulants Hypertension History of transcatheter aortic valve replacement (TAVR) Hyperlipidemia Anemia Ascending aorta dilatation Arthritis DVT (deep venous thrombosis) Factor II deficiency Home Medications ?Medication ?Instructions ?Recorded ?Last Taken ?Type aspirin 81 mg tablet,delayed 81 mg PO QDAY 03/31/24 07/01/24 History release (Adult Aspirin Regimen) clobetasol 0.05 % topical cream 1 applic topical BID PRN ECZEMA 03/31/24 Unknown History cholecalciferol (vitamin D3) 250 250 mcg PO QDAY 04/27/24 07/01/24 History mcg (10,000 unit) capsule esomeprazole magnesium 40 mg 40 mg PO QDAY #90 caps 04/27/24 07/01/24 Rx capsule,delayed release gruns daily comprehensive nutrition 1 ea PO DAILY 04/27/24 06/30/24 History hydrocortisone 2.5 % topical cream 1 applic MA QD-BID PRN hemorrhoids 04/27/24 Unknown Rx with perineal applicator #30 grams (Anusol-HC) thiamine HCl (vitamin B1) 50 mg 50 mg PO QDAY 04/27/24 07/01/24 History tablet amoxicillin 500 mg capsule 500 mg PO ONCE #4 caps 06/30/24 07/02/24 05:30 Rx acetaminophen 500 mg capsule 500 mg PO Q6H PRN 07/21/24 Unknown History warfarin 4 mg tablet 4 mg PO .COMPLEX #90 tabs 07/21/24 Unknown Rx warfarin 5 mg tablet 5 mg PO QDAY 07/21/24 Unknown History atorvastatin 40 mg tablet 40 mg PO QDAY #90 tabs 07/22/24 Unknown Rx Allergy/AdvReac Type Severity Reaction Status Date / Time latex Allergy Intermediate Itching Verified 07/21/24 11:17 Family History Mother No problems noted. Father No problems noted. Surgical History History of discectomy History of cholecystectomy Social History Smoking Status: Never smoker alcohol intake: current substance use type: does not use caffeine: Yes ROS ROS ED Constitutional Constitutional ED: Denies chills or fever(s) Cardiovascular Cardiovascular: Denies chest pain Respiratory/Chest Respiratory/Chest: Denies cough or dyspnea Musculoskeletal Musculoskeletal: Reports other Details: left leg pain Integumentary Denies Abrasions or rash Neurologic Neurologic: Denies paresthesias or weakness Psychiatric Psychiatric: Denies anxiety Hematologic/Lymphatic Hematologic/Lymphatic: Reports easy bleeding, easy bruising and other Details: on coumadin EXAM Physical Exam Const Vital Signs: 09/01/24 07:57 Temperature 96.4 F L Temperature Source Temporal Pulse Rate 101 H Respiratory Rate 16 Blood Pressure 116/93 H Blood Pressure Mean 100 Pulse Ox 97 Oxygen Delivery Method Room Air Positive well nourished and well developed General Appearance ED: well developed and NAD HEENT Reports moist mucous membranes Chest Wall inspection of chest normal Resp normal respiratory effort and clear to auscultation bilaterally Cardio regular rate and regular rhythm Cardio Narrative: 2+ DP pulses Extremity full ROM Extremity Narrative: Mild nonpitting edema slightly more pronounced on the left compared to the right. Compartments are soft. There are scattered varicose veins present. No joint effusion of the left knee appreciated. Normal extensor mechanism. No laxity with range of motion of the knee. Very mild discomfort palpation of the posterior aspect of the knee. General Extremety ED: Yes edema General Extremity: edema Neuro oriented x3, moves all extremities and no sensory deficits noted Sensorium / Orientation: alert Motor Exam: strength 5/5 throughout; Negative for general weakness Psych mental status grossly normal Skin no wounds Rashes: no rashes MDM MDM MDM Narrative Medical decision making narrative: Patient evaluated for atraumatic left lower leg pain that centered behind her left knee. Differential includes muscle skeletal pain, Reynaga's cyst or DVT/failure of Coumadin. Patient had her INR checked this morning so we will hold off on rechecking it in the ER as it was therapeutic. Patient is comfortable with this. Venous duplex obtained which is negative for DVT but does show small popliteal cyst. Suspect this is causing her discomfort. Counseled on compression and Tylenol. Patient be discharged home. Given return precautions. This time I think it is safe for her to travel. Discharge Plan Triage Chief Complaint: Lower Extremity Injury ED Provider: Vivienne Martinez Dx/Rx/DC Orders Clinical Impression: Acute pain of left lower extremity, Current use of buttermaker continuous churn anticoagulation, Reynaga cyst, History of deep vein thrombosis Instructions: ED Reynaga's Cyst Prescriptions: No Action clobetasol 0.05 % cream 1 applic topical BID PRN (Reason: ECZEMA) aspirin [Adult Aspirin Regimen] 81 mg tablet,delayed release (DR/EC) 81 mg PO QDAY warfarin 5 mg tablet 5 mg PO QDAY Protocol: Dose Management Condition: Saturday Dose/Route: 5 mg Instruction: 1 x 5 mg tablet Condition: Saturday Dose/Route: 6 mg Instruction: 1.5 x 4 mg tablets Condition: Saturday Dose/Route: 5 mg Instruction: 1 x 5 mg tablet Condition: Saturday Dose/Route: 6 mg Instruction: 1.5 x 4 mg tablets Condition: Dose/Route: 5 mg Instruction: 1 x 5 mg tablet Condition: Saturday Dose/Route: 6 mg Instruction: 1.5 x 4 mg tablets Condition: Saturday Dose/Route: 5 mg Instruction: 1 x 5 mg tablet Protocol Text: Adjustment Start Date: Saturday09/01/24 INR Value: 2.2 INR Date: 09/01/24 Recheck Date: 09/08/24 Patient Comments: ON HOLD FOR COLONOSCOPY Rx Instructions: Saturday, Sat, Sat gruns daily comprehensive nutrition 1 ea PO DAILY thiamine HCl (vitamin B1) 50 mg tablet 50 mg PO QDAY cholecalciferol (vitamin D3) 250 mcg (10,000 unit) capsule 250 mcg PO QDAY hydrocortisone [Anusol-HC] 2.5 % cream with perineal applicator 1 applic MA QD-BID PRN (Reason: hemorrhoids) Qty: 30 0RF esomeprazole magnesium 40 mg capsule,delayed release(DR/EC) 40 mg PO QDAY Qty: 90 1RF Rx Instructions: take 30 minutes before breakfast every morning acetaminophen 500 mg capsule 500 mg PO Q6H PRN amoxicillin 500 mg capsule 500 mg PO ONCE Qty: 4 4RF Rx Instructions: Take 4 capsules one prior to dental work or surgical procedure for mechanical valve warfarin 4 mg tablet 4 mg PO .COMPLEX Qty: 90 3RF Protocol: Dose Management Condition: Saturday Dose/Route: 5 mg Instruction: 1 x 5 mg tablet Condition: Saturday Dose/Route: 6 mg Instruction: 1.5 x 4 mg tablets Condition: Saturday Dose/Route: 5 mg Instruction: 1 x 5 mg tablet Condition: Saturday Dose/Route: 6 mg Instruction: 1.5 x 4 mg tablets Condition: Dose/Route: 5 mg Instruction: 1 x 5 mg tablet Condition: Saturday Dose/Route: 6 mg Instruction: 1.5 x 4 mg tablets Condition: Saturday Dose/Route: 5 mg Instruction: 1 x 5 mg tablet Protocol Text: Adjustment Start Date: Saturday09/01/24 INR Value: 2.2 INR Date: 09/01/24 Recheck Date: 09/08/24 Rx Instructions: 4 mg orally Take 1.5 tablets to = 6 mg on , Sat and Saturday (takes a 5mg tablet all other days of week) Please give 90 pills. atorvastatin 40 mg tablet 40 mg PO QDAY Qty: 90 3RF Primary Care Provider: Care Physician,No Primary Referrals: Care Physician,No Primary [Primary Care Provider] - Activity Restrictions/Additional Instructions: You do not have an acute blood clot in your leg today. You do have a small cyst behind your knee called a Reynaga's cyst which is likely caused your discomfort. You are safe to travel. Follow-up with your family doctor as needed. Print Language: Tajik Disposition Disposition: Home, Self Care
[2024-09-01 10:12] VITALS: BP 116/93; PULSE 101; RESP 16; TEMP 35.8; O2SAT 97
== END 2024-09-01 10:00 | disposition home or self-care (01) ==
PROVIDERS: Emergency Provider Emergency Medicine; Visit Provider Emergency Medicine
DX: I83.812 Varicose veins of left lower extremity with pain (principal); Z79.01 Long term (current) use of anticoagulants; E78.00 Pure hypercholesterolemia, unspecified; I10 Essential (primary) hypertension; M71.20 Synovial cyst of popliteal space [Baker], unspecified knee; Z86.718 Personal history of other venous thrombosis and embolism; R60.9 Edema, unspecified; Z90.49 Acquired absence of other specified parts of digestive tract; Z87.19 Personal history of other diseases of the digestive system; Z79.82 Long term (current) use of aspirin; Z95.2 Presence of prosthetic heart valve
CPT/HCPCS: 93971; 99282

== ENCOUNTER → 2024-10-20 | Outpatient (CLI) | payer MEDICARE, BC, SELFPAY ==
--- NOTE | 2024-10-20 14:58 | BD_ITS ---
PROCEDURE: DEXA BONE DENSITY STUDY 10/20/2024 REASON FOR EXAM: SCREENING F, age 68 y/o . Postmenopausal. TECHNIQUE: DEXA BONE DENSITY STUDY COMPARISON: None FINDINGS: BMD and T-SCORES Lumbar spine: 0.967 g/cm2, T-score -0.7 Levels: L1 through L4 Left femoral neck: 0.663 g/cm2, T-score -1.7 Femoral neck comparison data not recommended for monitoring change. Left total hip: 0.762 g/cm2, T-score -1.5 Right femoral neck: 0.578 g/cm2, T-score -2.4 Femoral neck comparison data not recommended for monitoring change. Right total hip: 0.777 g/cm2, T-score -1.4 The World Health Organization has defined the following categories based on bone density: Normal bone density: T-score equal to or greater than -1.0 Osteopenia: T-score between -1.0 and -2.5 Osteoporosis: T-score equal to or less than -2.5 FRAX (or Comparable) Fracture Risk Assessment: 10 Year Probability of Fracture: Major Osteoporotic Fracture: 12th% Hip Fracture: 2.4% (Note: FRAX is not to be reported in setting of normal range bone density, osteoporosis on DEXA, known history of osteoporosis, prior osteoporotic hip or vertebral fracture, or for any patient undergoing pharmacological treatment for bone loss.) The National Osteoporosis Foundation (NOF) recommends pharmacological treatment for patients with a FRAX 10-year risk of 3% or higher for a hip fracture, or 20% or higher for a major osteoporotic fracture, to prevent osteoporosis and reduce fracture risk. The patient does meet the pharmacological treatment recommendations for prevention of osteoporosis. BD/Dexa Bone Density Study IMPRESSION: OSTEOPENIA. Recommend follow-up as clinically warranted. Reading Location: [facility]
--- NOTE | 2024-10-20 14:58 | BI_ITS ---
EXAM: SCRN MAMM (CAD)W/STONE BILAT DATE: 10/20/2024 CLINICAL HISTORY: F, Age 68 y/o , SCREENING Sister with breast cancer. TECHNIQUE: Procedure Code: [id number] Modality: MG Procedure: SCRN MAMM (CAD)W/STONE BILAT COMPARISON: Prior exam(s) dated September 30, 2023.. FINDINGS: TISSUE DENSITY: The breasts are almost entirely fatty. Bilateral Breast Mammographic Findings: No significant masses, calcifications or other abnormalities are identified. No suspicious masses, areas of developing architectural distortion, or suspicious calcifications. There has been no significant interval change. BI/SCRN MAMM (CAD)W/STONE BILAT IMPRESSION: Stable bilateral screening mammogram. OVERALL FINAL ASSESSMENT BI-RADS 1: NEGATIVE. RECOMMENDATION: Routine annual follow-up in 1 Year A letter with findings and recommendations will be mailed to the patient. Reading Location: [place] [id number]
--- NOTE | 2024-10-20 15:55 | RAD_ITS ---
PROCEDURE: LEFT FOOT MIN 3 VIEWS 10/20/2024 REASON FOR EXAM: FOOT SWELLING TECHNIQUE: LEFT FOOT MIN 3 VIEWS COMPARISON: None. FINDINGS: No acute fracture or dislocation. Alignment is anatomic. Mild degenerative arthrosis of the interphalangeal joints and 1st MTP joint, with mild hallux valgus. Mild dorsal and plantar calcaneal spurring. Bipartite medial sesamoid. No aggressive osseous erosion/destruction or periosteal reaction. Generalized soft tissue swelling about the ankle and foot, predominantly at the dorsal forefoot. RAD/Foot min 3 Views IMPRESSION: No acute or aggressive osseous abnormality. Mild degenerative changes. Generalized nonspecific soft tissue swelling/edema most pronounced at the foref oot. Reading Location: [id number]
[2024-10-20 16:02] LABS: Hematocrit 38.3 % (37-47); Hemoglobin 12.7 g/dL (12.0-15.0); Immature Granulocytes Count 0.010 X10^3/uL (0.0-0.0); Mean Corp Hgb Conc 33.2 g/dL (32-36); Mean Corpuscular Volume 99.0 fL (81-99); Mean Platelet Vol. 9.2 fl (6.2-12.0); NRBC Flagged by Analyzer 0 % (0-5); Platelet Count 294 K/mm3 (150-450); RBC Distribution Width CV 12.0 % (11.6-14.6); RBC Distribution Width SD 43.8 fl (35.1-43.9); Red Blood Count 3.87 M/mm3 (4.2-5.4); White Blood Count 5.6 K/mm3 (4.4-11.0)
[2024-10-20 17:22] LABS: Magnesium 2.0 mg/dL (1.5-2.2); Vitamin D,25 Hydroxy 88.6 ng/mL (30-100)
[2024-10-20 17:27] LABS: AST(SGOT) 26 U/L (<=31); Alanine Aminotransfer ALT/SGPT 13 U/L (<=34); Albumin, Serum 3.9 g/dL (3.4-4.8); Alkaline Phosphatase 89 U/L (35-104); Anion Gap 13 (5-15); BUN 12 mg/dL (4-19); BUN/Creat Ratio 14.2 RATIO (10-20); Calcium,Total 9.3 mg/dL (7.6-11.0); Carbon Dioxide 22.9 mmol/L (21.0-32.0); Chloride 104 mmol/L (98-108); Globulin 2.9 g/dL (2.2-4.2); Glucose 102 mg/dL (70-99); Potassium 4.2 mmol/L (3.3-5.1)
--- OUTSIDE RECORDS SUMMARY | 2024-10-20 22:06 | XMS RPT_ITS | CCD ---
Author Organization [facility] Care Team Providers Care Judicial Clerk Name Role Phone Hardeep KELLER-CCiera Attending Provider Dr. Emory Adams MD Attending Provider Hardeep SHOCK ABSORPTION FLOOR LAYER-CCiera Referring Provider Care Physician, No Primary Primary Care Provider Unavailable Dr. Emory Adams MD Referring Provider Care Physician, No Primary Attending Provider Un available Dr. Gamal Boggs MD Attending Provider [phone] Care Physician, No Primary Referring Provider Un available Yari Mandujano Attending Provider Dr. Williams Madison DO Attending Provider Dr. Williams Madisno DO Other Provider [phone] Ciera Barroso Attending Provider Dr. Emory Adams MD Attending Provider Dr. Vivienne Martinez DO Emergency Provider Care Physician, No Primary Primary Care Provider Unavailable Care Physician, No Primary Attending Provider Un available Dr. Emory Adams MD Attending Provider Dr. Emory Adams MD Referring Provider Ciera Barroso Attending Provider Dr. Vivienne Martinez DO Attending Provider Dr. Vinnie Su MD Attending Provider Dr. Vivienne Martinez DO Referring Provider Lori HOFF, Dr. Marquez Attending Provider Care Physician, No Primary Primary Care Unava ilable Care Physician, No Primary Attending Unava ilable Care Physician, No Primary Primary Care Unava ilable Emory Adams Attending Unavailable Emory Adams Referring Unavailable Care Physician, No Primary Primary Care Unava ilable Emory Adams Attending Unavailable Emory Adams Referring Unavailable Care Physician, No Primary Primary Care Unava ilable Care Physician, No Primary Attending Unava ilable Care Physician, No Primary Primary Care Unava ilable Vivienne Martinez Attending Unavailable Lori, Alma Primary Care Unavailable Lori, Alma Referring Unavailable Alma Sandoval Attending Unavailable Care Physician, No Primary Referring Unava ilable Care Physician, No Primary Primary Care Unava ilable Ciera Meier Attending Unavailable Care Physician, No Primary Referring Unava ilable Williams Madison Attending Unavailable Care Physician, No Primary Primary Care Unava ilable Vivienne Martinez Attending Unavailable TATE, VIDA Primary Care Unavailable Care Physician, No Primary Primary Care Unava ilable Care Physician, No Primary Attending Unava ilable Care Physician, No Primary Attending Unava ilable Care Physician, No Primary Primary Care Unava ilable Care Physician, No Primary Attending Unava ilable Care Physician, No Primary Primary Care Unava ilable Care Physician, No Primary Attending Unava ilable Care Physician, No Primary Primary Care Unava ilable Care Physician, No Primary Primary Care Unava ilable Gamal Boggs Attending Unavailable Care Physician, No Primary Attending Unava ilable Care Physician, No Primary Primary Care Unava ilable Care Physician, No Primary Referring Unava ilable Williams Madison Attending Unavailable Williams Madison Consulting Unavailable Care Physician, No Primary Primary Care Unava ilable Ciera Meier Attending Unavailable Emory Adams Attending Unavailable Alma Sandoval Primary Care Unavailable LoriAlma joshua Attending Unavailable Care Physician, No Primary Referring Unava ilable Care Physician, No Primary Primary Care Unava ilable Alma Sandoval Attending Unavailable Care Physician, No Primary Primary Care Unava ilable Care Physician, No Primary Attending Unava ilable Care Physician, No Primary Primary Care Unava ilable Care Physician, No Primary Attending Unava ilable Care Physician, No Primary Referring Unava ilable Yari Maxwell Attending Unavailable Care Physician, No Primary Primary Care Unava ilable Care Physician, No Primary Primary Care Unava ilable Gamal Boggs Attending Unavailable Care Physician, No Primary Attending Unava ilable Care Physician, No Primary Primary Care Unava ilable Care Physician, No Primary Primary Care Unava ilable Ciera Meier Referring Unavailable Ciera Meier Attending Unavailable Care Physician, No Primary Attending Unava ilable Care Physician, No Primary Primary Care Unava ilable Care Physician, No Primary Attending Unava ilable Care Physician, No Primary Primary Care Unava ilable Care Physician, No Primary Attending Unava ilable Care Physician, No Primary Primary Care Unava ilable Care Physician, No Primary Attending Unava ilable Care Physician, No Primary Primary Care Unava ilable Care Physician, No Primary Primary Care Unava ilable Care Physician, No Primary Attending Unava ilable Alma Sandoval Primary Care Unavailable Ciear Meier Referring Unavailable Ciera Meier Attending Unavailable Allergies Allergy Classification Reported Allergen(s) Allergy Type Date of Onset Reaction(s) Facility (6 sources) Latex Allergy to substance 04-27-2024 Itching [facility] (1 source) Latex Drug allergy (disorder) 10-06-2024 [facility] Repository Medications Current Medications Medication Drug Class(es) Dates Sig (Normalized) Sig (Original) acetaminophen 500 mg oral capsule (9 sources) Start: 07-21-2024 take 1 capsule by mouth every six hours as needed Acetaminophen 500 mg capsule Active 500 mg PO EVERY 6 HOURS as needed July 21, 2024 12:00am Start: 04-27-2024 End: 06-30-2024 take 1 capsule by mouth every six hours as needed Acetaminophen 500 mg capsule Discontinued 500 mg PO EVERY 6 HOURS as needed April 27, 2024 1:00am June 30, 2024 4:02pm amoxicillin 500 mg oral capsule (5 sources) Penicillin-class Antibacterial Start: 06-30-2024 End: 10-06-2024 Amoxicillin 500 mg capsule Active 500 mg PO ONCE as needed October 06, 2024 9:58am Take 4 capsules one prior to dental work or surgical procedure for mechanical valve aspirin 81 mg delayed release oral tablet (6 sources) Platelet Aggregation Inhibitor, Nonsteroidal Anti-inflammatory Drug Start: 03-31-2024 take 1 tablet by mouth once daily Aspirin (Adult Aspirin Regimen) 81 mg tablet,delayed release (DR/EC) Active 81 mg PO daily March 31, 2024 1:00am cholecalciferol 0.25 mg oral capsule (6 sources) Vitamin D Start: 04-27-2024 take 1 capsule by mouth once daily Cholecalciferol (Vitamin D3) 250 mcg (10,000 unit) capsule Active 250 ug PO daily April 27, 2024 1:00am clobetasol propionate 0.5 mg/ml topical cream (6 sources) Corticosteroid Start: 03-31-2024 Clobetasol 0.05 % cream Active 1 NMA TOPICAL TWICE A DAY as needed for ECZEMA March 31, 2024 1:00am esomeprazole 40 mg delayed release oral capsule (6 sources) Proton Pump Inhibitor Start: 04-27-2024 take 1 capsule by mouth once daily 30 minutes before breakfast Esomeprazole Magnesium 40 mg capsule,delayed release(DR/EC) Active 40 mg PO daily 90 1 April 27, 2024 1:00am take 30 minutes before breakfast every morning gruns daily comprehensive nutrition (6 sources) Start: 04-27-2024 gruns daily comprehensive nutrition Active 1 NMA PO DAILY April 27, 2024 1:00am Start: 04-27-2024 gruns daily co mprehensive nutrition Active PO April 27, 2024 1:00am handicap placard (1 source) Start: 10-06-[address] Active 0 .ROUTE .MEDSUPPLY 1 0 October 06, 2024 12:00am Impaired physical mobility Other reduced mobility Length of time: 5 years Impaired physical mobility z74.09 hydrocortisone 25 mg/ml topical cream (6 sources) Corticosteroid Start: 04-27-2024 Hydrocortisone (Anusol-Hc) 2.5 % cream with perineal applicator Active 1 NMA RC 1 to 2 times per day as needed for hemorrhoids 30 0 April 27, 2024 1:00am thiamine 50 mg oral tablet (6 sources) Start: 04-27-2024 take 1 tablet by mouth once daily Thiamine Hcl (Vitamin B1) 50 mg tablet Active 50 mg PO daily April 27, 2024 1:00am Completed/Discontinued Medications Medication Drug Class(es) Dates Sig (Normalized) Sig (Original) acetaminophen 325 mg / oxyCODONE hydrochloride 5 mg oral tablet (6 sources) Opioid Agonist Start: 11-27-2023 End: 04-27-2024 Oxycodone-Acetaminop hen (Percocet) 5-325 mg tablet Discontinued 1 {tbl} PO Q8H as needed for pain 10 3 0 November 27, 2023 April 27, 2024 2:28pm Degeneration of intervertebral disc of lumbar region Low back pain Low back pain, unspecified atorvastatin 40 mg oral tablet (16 sources) HMG-CoA Reductase Inhibitor Start: 04-27-2024 End: 07-22-2024 take 1 tablet by mouth once daily Atorvastatin 40 mg tablet Discontinued 40 mg PO daily 90 3 July 21, 2024 2:51pm July 22, 2024 4:55pm Start: 03-31-2024 End: 04-27-2024 take 1 tablet by mouth once daily Atorvastatin 80 mg tablet Discontinued 80 mg PO daily March 31, 2024 1:00am April 27, 2024 2:27pm Bacillus Coagulans (Probiotic (B. Coagulans)) 10 billion cell capsule,delayed release(DR/EC) (6 sources) Start: 03-31-2024 End: 04-27-2024 take 10 capsules by mouth once daily Bacillus Coagulans (Probiotic (B. Coagulans)) 10 billion cell capsule,delayed release(DR/EC) Discontinued NMA PO DAILY March 31, 2024 1:00am April 27, 2024 2:28pm biotin 2.5 mg oral capsule (6 sources) Start: 03-31-2024 End: 04-27-2024 take 1 capsule by mouth once daily Biotin 2,500 mcg capsule Discontinued 2500 ug PO daily March 31, 2024 1:00am April 27, 2024 2:28pm Multivitamin tablet (6 sources) Start: 04-27-2024 End: 06-30-2024 Multivitamin tablet Discontinued 1 {tbl} PO daily April 27, 2024 1:00am June 30, 2024 4:01pm Start: 04-27-2024 Multivitamin t ablet Active 1 {tbl} PO daily April 27, 2024 1:00am ondansetron 4 mg oral tablet (6 sources) Serotonin-3 Receptor Antagonist Start: 04-27-2024 End: 07-21-2024 take 2 tablets by mouth every two hours as needed, then take 1 tablet by mouth every four hours as needed Ondansetron Hcl 4 mg tablet Discontinued 4 mg PO .COMPLEX 5 0 April 27, 2024 1:00am July 21, 2024 11:17am 4 mg orally; two tablets PO two hours prior to start of bowel prep and one every 4 hours as needed for N/V Peg 3350-Sod Sulf,Dklx-Rjs-Pbv (Suflave) 178.7-7.3-0.5 gram recon soln (6 sources) Start: 04-27-2024 End: 07-21-2024 Peg 3350-Sod Sulf,Cmsz-Xtn-Pzy (Suflave) 178.7-7.3-0.5 gram recon soln Discontinued 0 PO .COMPLEX 2 April 27, 2024 1:00am July 21, 2024 11:16am take as directed for split dose bowel prep Start: 04-27-2024 End: 07-21-2024 Peg 3350-Sod Sulf,Chlr-Pot-M ag (Suflave) 178.7-7.3-0.5 gram recon soln Discontinued 0 PO .COMPLEX 2 April 27, 2024 1:00am July 21, 2024 11:16am take as directed for split dose bowel prep Start: 04-27-2024 Peg 3350-Sod S ulf,Rkbp-Nmf-Pav (Suflave) 178.7-7.3-0.5 gram recon soln Active 0 PO .COMPLEX 2 April 27, 2024 1:00am take as directed for split dose bowel prep predniSONE 20 mg oral tablet (6 sources) Start: 11-27-2023 End: 04-27-2024 take 2 tablets by mouth once daily Prednisone 20 mg tablet Discontinued 40 mg PO DAILY 10 November 27, 2023 12:00am April 27, 2024 2:28pm warfarin sodium 4 mg oral tablet (20 sources) Vitamin K Antagonist Start: 07-21-2024 End: 07-21-2024 Warfarin 4 mg tablet Discontinued 4 mg PO .COMPLEX July 21, 2024 2:51pm July 21, 2024 2:54pm 4 mg orally Take 1.5 tablets to = 6 mg on , Sat and Saturday (takes a 5mg tablet all other days of the week, or as directed). Please give extra tablets for periodic dose changes Please contact the information source for Protocol details. Start: 07-21-2024 End: 07-21-2024 take 6 mg by mouth once daily Warfarin 4 mg tablet Dis continued 6 mg PO daily July 21, 2024 11:15am July 21, 2024 2:53pm Sun, Tue, , Sat Please contact the information source for Protocol details. Start: 03-31-2024 End: 07-21-2024 Warfarin 4 mg tablet Active 4 mg PO .COMPLEX 90 3 July 21, 2024 2:54pm 4 mg orally Take 1.5 tablets to = 6 mg on , Sat and Saturday (takes a 5mg tablet all other days of week) Please give 90 pills. Please contact the information source for Protocol details. Start: 03-31-2024 End: 07-21-2024 take 1 tablet by mouth once daily Warfarin 5 mg tablet Active 5 mg PO daily July 21, 2024 11:15am Saturday, Sat, Sat Please contact the information source for Protocol details. 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-31-2024 Chronic Disorders of lipid metabolism (11 sources) Hyperlipidemia; Translations: [Hyperlipidemia, unspecified] Onset: 5 04-28-2024 Chronic Esophageal disorders (6 sources) Gastroesophageal reflux disease; Translations: [Gastro-esophageal reflux disease without esophagitis] Onset: 5 07-21-2024 Chronic Essential hypertension (10 sources) Hypertensive disorder; Translations: [Essential (primary) hypertension] 04-28-2024 Chronic Heart valve disorders (12 sources) Aortic valve disorder; Translations: [Nonrheumatic aortic valve disorder, unspecified] Onset: 5 04-28-2024 Chronic Hemorrhoids (10 sources) Hemorrhoids; Translations: [Unspecified hemorrhoids] Onset: Episodic Nutritional deficiencies (1 source) Vitamin D deficiency, unspecified; Translations: [Vitamin D deficiency, unspecified] Onset: 5 Chronic Osteoarthritis (6 sources) Arthritis; Translations: [Unspecified osteoarthritis, unspecified site] 03-31-2024 Chronic Osteoporosis (1 source) Age-related osteoporosis without current pathological fracture; Translations: [Age-related osteoporosis without current pathological fracture] Onset: 5 Chronic Other aftercare (7 sources) Long-term current use of anticoagulant; Translations: [intermediate (current) use of anticoagulants] 06-04-2024 Episodic Other aftercare (1 source) intermediate (current) use of anticoagulants; Translations: [superintendent container terminal (current) use of anticoagulants] Onset: Episodic Other and unspecified benign neoplasm (16 sources) History of polyp of colon; Translations: [History of colonic polyps] 04-27-2024 Episodic Other connective tissue disease (2 sources) Synovial cyst of popliteal space [Reynaga], unspecified knee; Translations: [Synovial cyst of popliteal space] 09-01-2024 Episodic Other connective tissue disease (2 sources) Pain in lower limb; Translations: [Pain in left leg] 09-01-2024 Episodic Other connective tissue disease (1 source) Swelling of left foot; Translations: [Other specified soft tissue disorders] 10-06-2024 Episodic Other connective tissue disease (1 source) Other specified soft tissue disorders; Translations: [Other specified soft tissue disorders] Onset: Episodic Other connective tissue disease (1 source) Pain in left leg; Translations: [Pain in left leg] Onset: Episodic Other gastrointestinal disorders (16 sources) Constipation; Translations: [Constipation, unspecified] Episodic Other gastrointestinal disorders (14 sources) Dysphagia; Translations: [Dysphagia, unspecified] 04-27-2024 Episodic Other gastrointestinal disorders (2 sources) Incontinence of feces; Translations: [Full incontinence of feces] 07-27-2024 Episodic Other gastrointestinal disorders (1 source) Full incontinence of feces; Translations: [Full incontinence of feces] Onset: Episodic Other screening for suspected conditions (not mental disorders or infectious disease) (4 sources) Patient encounter status; Translations: [Encounter for other screening for malignant neoplasm of breast] Onset: 5 10-06-2024 Episodic Phlebitis; thrombophlebitis and thromboembolism (3 sources) H/O: Deep vein thrombosis; Translations: [Personal history of other venous thrombosis and embolism] 09-01-2024 Episodic Residual codes; unclassified (14 sources) Family history of cancer of colon; Translations: [Family history of malignant neoplasm of digestive organs] 04-27-2024 Episodic Residual codes; unclassified (2 sources) Asymptomatic menopausal state; Translations: [Asymptomatic menopausal state] Onset: 5 Episodic Spondylosis; intervertebral disc disorders; other back problems (15 sources) Degeneration of lumbar intervertebral disc; Translations: [Degeneration of intervertebral disc of lumbar region] 12-05-2023 Chronic Spondylosis; intervertebral disc disorders; other back problems (6 sources) Low back pain; Translations: [Low back pain] 12-05-2023 Episodic Unclassified (3 sources) K59.00 - Constipation, unspecified Unclassified (8 sources) M51.369 - Other intervertebral disc degeneration, lumbar region without mention of lumbar back pain or lower extremity pain Unclassified (4 sources) Degeneration of intervertebral disc of lumbar region Unclassified (1 source) Personal history of colon polyps, unspecified; Translations: [Personal history of colon polyps, unspecified] Onset: 5 Unclassified (1 source) Low back pain, unspecified; Translations: [Low back pain, unspecified] Onset: 5 Past or Other Problems Problem Classification Problem Date Documented Da te Episodic/Chronic Other gastrointestinal disorders (2 sources) Dysphagia, unspecified; Translations: [Dysphagia, unspecified] Onset: 05-20-2024 Episodic Other gastrointestinal disorders (2 sources) Constipation, unspecified; Translations: [Constipation, unspecified] Onset: 04-27-2024 Episodic Residual codes; unclassified (1 source) Family history of malignant neoplasm of digestive organs; Translations: [Family history of malignant neoplasm of digestive organs] Onset: 07-09-2024 Episodic Results Test Name Value Interpretation Reference Range Facility Internal Medicine Office Vis fatimah 10-05-2024 Internal Medicine Office Visit [facility] [address] [place] [address] OFFICE VISIT Date of Service: 10/06/24 MR#: [id number] Acct: [id number] Name: VICENTE CASTELLANOS Rep #: [id number] : 1955 Provider: Dr. Alma diaz MD Age/Sex: 68/F Location: [facility] Status: Signed Intake Vital Signs 04/28/24 11:25 07/02/24 05:58 09/01/24 07:57 10/06/24 10:04 Height 5 ft 6 in 5 ft 6 in 5 ft 6 in 5 ft 6 in Weight: 204 lb BMI 32.9 BP 136/60 H Blood Pressure Location Lt brachial Position Sitting Respiration 18 Pulse 88 Pulse Source Monitor Temp 97.8 F Temp Source Temporal Pulse Oximetry (%) 98 Oxygen Delivery Method room air Intake Visit Reasons: 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 CARE-WHG PATIENT Chief Complaint: 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 CARE- WHG PATIENT Is patient in pain?: No Allergies latex Allergy (Intermediate, Verified 10/06/24 09:58) Itching Medications ???Medication ???Instructions ???Recorded ???Confirmed ???Type aspirin 81 mg tablet,delayed 81 mg PO QDAY 03/31/24 10/06/24 Hi story release (Adult Aspirin Regimen) clobetasol 0.05 % topical cream 1 applic topical BID PRN ECZEMA 10/06/24 History cholecalciferol (vitamin D3) 250 250 mcg PO QDAY 04/27/24 10/06/24 History mcg (10,000 unit) capsule esomeprazole magnesium 40 mg 40 mg PO QDAY #90 caps 04/27/24 Rx capsule,delayed release gruns daily comprehensive nutrition 1 ea PO DAILY 04/27/24 10/06/24 History hydrocortisone 2.5 % topical cream 1 applic DE QD-BID PRN hemorrhoi ds 04/27/24 10/06/24 Rx with perineal applicator #30 grams (Anusol-HC) thiamine HCl (vitamin B1) 50 mg 50 mg PO QDAY 04/27/24 10/06/24 Hi story tablet acetaminophen 500 mg capsule 500 mg PO Q6H PRN 07/21/24 5 History warfarin 4 mg tablet 4 mg PO .COMPLEX #90 tabs 07/21/24 10/06/24 Rx warfarin 5 mg tablet 5 mg PO QDAY 07/21/24 10/06/24 His tory atorvastatin 40 mg tablet 40 mg PO QDAY #90 tabs 07/22/24 Rx amoxicillin 500 mg capsule 500 mg PO ONCE PRN 10/06/24 Histo ry handicap placard #1 ea 10/06/24 10/06/24 Rx Have you fallen in the past year?: No Nurse's Note: pt has concerns about her left ankle/foot swelling since beginning of August [facility] Medical History (Updated 10/06/24 @ 13:[address] 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 Alma Sandoval MD) History of surgical procedure History of transcatheter aortic valve replacement (TAVR) History of tonsillectomy History of hysterectomy History of colonoscopy History of cataract surgery History of discectomy History of cholecystectomy Family History (Updated 10/06/24 @ 10:[address] Alma Sandoval MD) Father Sudden cardiac , Onset Age: 40 Myocardial infarction Grandfather Myocardial infarction Grandmother Pneumonia Grandmother Myocardial infarction Mother Colon cancer Arthritis Heart disease Myocardial infarction CVA (cerebral vascular accident) Barretts esophagus Daughter Liver disease Alcoholism Daughter Age: 46 Asthma Daughter Alcoholism Cirrhosis Social History (Updated 10/06/24 @ 10:[address] 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 1. Little interest or pleasure in doing things: not at all 2. Feeling down, depressed, or hopeless: not at all 3. Trouble falling or staying asleep, or sleeping too much: more than half the days (trouble falling asleep ) 4. Feeling tired or having little energy: not at all 5. Poor appetite or overeating: not at all 6. Feeling bad about yourself - or that you are a failure or have let yourself and your family down: not at all 7. Trouble concentrating on things, such as reading (more content not included)... Normal [facility] No Panel Informationon 09-29 INR International Normalized Ratio 2.1 [facility] No Panel InformationOrdered By: Emory Adams on 09-22-2024 INR International Normalized Ratio 1.7 Low [facility] No Panel InformationOrdered By: Emory Adams on 09-17-2024 INR International Normalized Ratio 3.0 [facility] Emergency Department Summary on 09-01-2024 Emergency Department Summary [facility] Medical Records Department [address] [place] [address] Emergency Department Summary 09/01/24 MR#: [id number] Acct: [id number] Name: VICENTE CASTELLANOS Rep #: [id number] : 1955 68 From: Vivienne Martinez DO PCP: Care Physician,No Primary Status:DEP ER Location: ED HPI History of Present Illness Chief Complaint: Lower Extremity Injury Informant: patient Narrative Narrative: Patient is a 68-year-old female with history of hypertension, hyperlipidemia, factor II deficiency, DVT in the left lower extremity (in 2006) and long-term Coumadin therapy. She states the past 4 to 5 days she has had discomfort behind her left knee that is worse when she straightens out her legs and mildly uncomfortable when she walks or when she is going up and down stairs. She states she is back to go out of town on a trip and was worried she may be had a blood clot. States her INR this morning her home she was 2.2. She states some chronic swelling of her left leg compared to the right ever since her blood clot. Denies any chest pain shortness of breath. No other skin changes reported. No other complaints or concerns at this time. Denies any trauma or injury. 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 Hypertension History of transcatheter aortic valve replacement (TAVR) Hyperlipidemia Anemia Ascending aorta dilatation Arthritis DVT (deep venous thrombosis) Factor II deficiency Home Medications ???Medication ???Instructions ???Recorded ???Last Taken ???Type aspirin 81 mg tablet,delayed 81 mg PO QDAY 03/31/24 07/01/24 Hi story release (Adult Aspirin Regimen) clobetasol 0.05 % topical cream 1 applic topical BID PRN ECZEMA Unknown History cholecalciferol (vitamin D3) 250 250 mcg PO QDAY 04/27/24 07/01/24 History mcg (10,000 unit) capsule esomeprazole magnesium 40 mg 40 mg PO QDAY #90 caps 04/27/24 Rx capsule,delayed release gruns daily comprehensive nutrition 1 ea PO DAILY 04/27/24 06/30/24 History hydrocortisone 2.5 % topical cream 1 applic DE QD-BID PRN hemorrhoi ds 04/27/24 Unknown Rx with perineal applicator #30 grams (Anusol-HC) thiamine HCl (vitamin B1) 50 mg 50 mg PO QDAY 04/27/24 07/01/24 Hi story tablet amoxicillin 500 mg capsule 500 mg PO ONCE #4 caps 06/30/24 05:30 Rx acetaminophen 500 mg capsule 500 mg PO Q6H PRN 07/21/24 Unknown History warfarin 4 mg tablet 4 mg PO .COMPLEX #90 tabs 07/21/24 Unknown Rx warfarin 5 mg tablet 5 mg PO QDAY 07/21/24 Unknown Hist ory atorvastatin 40 mg tablet 40 mg PO QDAY #90 tabs 07/22/24 Un known Rx Allergy/AdvReac Type Severity Reaction Status Date / Time latex Allergy Intermediate Itching Verified 07/21/24 11:17 Family History Mother No problems noted. Father No problems noted. Surgical History History of discectomy History of cholecystectomy Social History Smoking Status: Never smoker alcohol intake: current substance use type: does not use caffeine: Yes ROS ROS ED Constitutional Constitutional ED: Denies chills or fever(s) Cardiovascular Cardiovascular: Denies chest pain Respiratory/Chest Respiratory/Chest: Denies cough or dyspnea Musculoskeletal Musculoskeletal: Reports other Details: left leg pain Integumentary Denies Abrasions or rash Neurologic Neurologic: Denies paresthesias or weakness Psychiatric Psychiatric: Denies anxiety Hematologic/Lymphatic Hematologic/Lymphatic: Reports easy bleeding, easy bruising and other Details: on coumadin EXAM Physical Exam Const Vital Signs: 09/01/24 07:57 Temperature 96.4 F L Temperature Source Temporal Pulse Rate 101 H Respiratory Rate 16 Blood Pressure 116/93 H Blood Pressure Mean 100 Pulse Ox 97 Oxygen Delivery Method Room Air Positive well nourished and well developed General Appearance ED: well developed and NAD HEENT Reports moist mucous membranes Chest Wall inspection of chest normal Resp normal respiratory effort and clear to auscultation bilaterally Cardio regular rate and regular rhythm Cardio Narrative: 2+ DP pulses Extremity full ROM Extremity Narrative: Mild nonpitting edema slightly more pronounced on the left compared to the right. Compartments are soft. There are scatte (more content not included)... Normal [facility] No Panel Informationon 09-01 INR International Normalized Ratio 2.2 [facility] Prothrombin Time w/INRon INR Normal [facility] Comment on above: Result Comment: Canpatricia whitmoreed via OM: Ordered Performed By: #### L 300.3900 ####[facility] [id number] [place], [place], [address] PROTIME Normal 11.7-14.9 [facility] Comment on above: Result Comment: Chandrakant hung via OM: Ordered Performed By: #### L 300.3900 ####[facility] [id number] [place], [address] Venous Duplex US, Unilateral on 09-01-2024 Venous Duplex US, Unilateral [facility] [address] [place] [address] Venous Duplex US, Unilateral 09/01/24 0837 MR#: [id number] Acct: [id number] Name: VICENTE CASTELLANOS Rep #: [id number] : 1955 68 From: Vinnie Su MD Attending Dr: Status: DEP ER Ordering Dr: Vivienne Martinez DO Date: 09/01/24 Location: ED Sex: F C Admitted: Reason For Study Reason For Study: LLE SWELLING RIGHT LEFT CFV is compressible, spontaneous, phasic, competent GSV is normal. and demonstrates normal augmentation. CFV is compressible, spontaneous, phasic, competent, Procedure and demonstrates normal augmentation. This is a venous duplex using B-mode, color flow and HYPERECHOIC wall thickening noticed in the Proximal spectral Doppler. FV C/W prior DVT. Exam performed portable in ED. Balance of FV is compressible, spontaneous, phasic, A preliminary report was called and/or faxed to Dr. wade and demonstrates normal augmentation. Juan @ 9 am. NON-VASCULAR ANAECHOIC STRUCTURE measuring 1.31 X 2.35cm noted in POP FOSSA SPACE. POP V is compressible, spontaneous, phasic, competent and demonstrates normal augmentation. T/P Trunk is compressible. PTV is compressible. LT PerV is compressible. VL/Venous Duplex US, Unilateral Interpretation Summary Chronic venous changes are noted in the left proximal femoral vein. The remainder of the left lower extremity deep venous system is patent and compressible. There is no evidence of left lower extremity acute deep vein thrombosis. The left great saphenous vein appears patent and compressible segmentally. A non-vascular, anechoic structure is noted in the left popliteal space, measuring 1.31 cm x 2.35 cm. This probably represents a popliteal cyst. Clinical correlation is advised. The right common femoral vein is patent and compressible. Ordering Physician: Vivienne Martinez Referring Physician: NO PCP Performed By: Emeli Rangel, RDCS, RVT 09/01/241925 Date Vinnie Su MD CC: Dr. Vivienne Martinez, DO; No Primary Care Physician Date Dictated: 09/01/24836 Date Transcribed: 09/01/241925 Adult Basic Education Manager: Signed Normal [facility] No Panel Informationon 08-25 INR International Normalized Ratio 2.7 [facility] No Panel Informationon 08-18 INR International Normalized Ratio 2.2 [facility] No Panel Informationon 08-11 INR International Normalized Ratio 2.7 [facility] No Panel Informationon 08-04 INR International Normalized Ratio 2.5 [facility] No Panel Informationon 07-28 INR International Normalized Ratio 2.8 [facility] Gastroenterology Visit Repor ton 07-21-2024 Gastroenterology Visit Report [facility] [address] [place] [address] OFFICE VISIT Date of Service: 07/21/24 MR#: [id number] Acct: [id number] Name: VICENTE CASTELLANOS Rep #: [id number] : 1955 Provider: SOHAIL jackson Age/Sex: 68/F Location: [facility] Status: Signed Intake Vital Signs 04/27/24 13:32 07/02/24 05:58 07/21/24 11:22 Height 5 ft 6 in 5 ft 6 in 5 ft 6 in Weight: 198 lb 2 oz BMI 31.9 BP 110/70 Respiration 16 Pulse 91 Pulse Oximetry (%) 94 Oxygen Delivery Method room air Intake Visit Reasons: Test Result Chief Complaint: Lumbar spine pain Celluloid Trimmer Required: No Accompanied by: Self Is patient in pain?: No Allergies latex Allergy (Intermediate, Verified 07/21/24 11:17) Itching Medications ???Medication ???Instructions ???Recorded ???Confirmed ???Type aspirin 81 mg tablet,delayed 81 mg PO QDAY 03/31/24 07/21/24 Hi story release (Adult Aspirin Regimen) clobetasol 0.05 % topical cream 1 applic topical BID PRN ECZEMA 07/21/24 History atorvastatin 40 mg tablet 40 mg PO QDAY 04/27/24 07/21/24 Hi story cholecalciferol (vitamin D3) 250 250 mcg PO QDAY 04/27/24 07/21/24 History mcg (10,000 unit) capsule esomeprazole magnesium 40 mg 40 mg PO QDAY #90 caps 04/27/24 Rx capsule,delayed release gruns daily comprehensive nutrition 1 ea PO DAILY 04/27/24 07/21/24 History hydrocortisone 2.5 % topical cream 1 applic DE QD-BID PRN hemorrhoi ds 04/27/24 07/21/24 Rx with perineal applicator #30 grams (Anusol-HC) thiamine HCl (vitamin B1) 50 mg 50 mg PO QDAY 04/27/24 07/21/24 Hi story tablet amoxicillin 500 mg capsule 500 mg PO ONCE #4 caps 06/30/24 Rx acetaminophen 500 mg capsule 500 mg PO Q6H PRN 07/21/24 5 History warfarin 4 mg tablet 6 mg PO QDAY 07/21/24 07/21/24 His tory warfarin 5 mg tablet 5 mg PO QDAY 07/21/24 07/21/24 His tory Have you fallen in the past year?: No PFSH Medical History Post-menopausal Wears glasses Alcohol use History of steroid therapy High cholesterol Back pain History of diverticulitis Gastric reflux Non-smoker History of edema History of echocardiogram Cardiology follow-up encounter intermediate (current) use of anticoagulants Hypertension History of transcatheter aortic valve replacement (TAVR) Hyperlipidemia Anemia Ascending aorta dilatation Arthritis DVT (deep venous thrombosis) Factor II deficiency Surgical History History of discectomy History of cholecystectomy Family History Mother No problems noted. Father No problems noted. Social History Smoking Status: Never smoker alcohol intake: current substance use type: does not use caffeine: Yes HPI HPI Chief Complaint: Lumbar spine pain Details: VICENTE CASTELLANOS, is a 68 F who presents to the office today for OV 04/27/2024 68y/o female presents for consultation with a personal history of colon polyps. Labs completed 11/27/2023 reveal HGB 10.6, normal CRP. Her family history is significant for mother with colon cancer. She complains of rectal/vaginal irritation secondary to fecal leakage secondary to hemorrhoids. She complains of difficulty with fecal evacuation and decreased sensation to have a BM. We have discussed the importance of avoiding straining with BM as well as high fiber diet with increased water intake. Lastly, she complains of upper esophageal dysphagia since discontinuing PPI. I have recommended she resume PPI and schedule Esophagram and EGD. Patient Instructions: Colonoscopy with hemorrhoid banding - Suflave EGD Esophagram with tablet - complete prior to EGD Will require approval to hold Coumadin prior to procedure Anorectal Manometry - schedule at [facility] Continue Sitz Bath Anusol RX sent to local pharmacy Avoid straining with bowel movements Squatty Potty ESOPHAGRAM 05/11/2024 Unremarkable EGD 07/02/2024 - negative for Rogel's - Z-line irregular, 40 cm from the incisors. Biopsied. - Moderate Schatzki ring. - Medium-sized hiatal hernia. - Enlarged gastric folds. - No gross lesions in the duodenal bulb. COLON 07/02/2024 - Sessile serrated lesion --- RECALL COLON 1 YEAR - Diverticulosis in the recto-sigmoid colon, in the sigmoid colon and in the descending colon. - One 10 mm polyp at the ileocecal valve, removed with a jumbo cold forceps. Resected and retrieved. - Stool at the hepatic flexure and in the cecum. Anorectal Manometry: completed on 07/17/2024 - we do not yet have the results - repo (more content not included)... Normal [facility] No Panel Informationon 07-21 INR International Normalized Ratio 2.8 [facility] No Panel Informationon 07-07 INR International Normalized Ratio 2.0 [facility] Colonoscopy Reporton 025 Colonoscopy Report [facility] Medical Records Department [address] [place] [address] Colonoscopy Report MR#: [id number] Acct: [id number] Name: VICENTE CASTELLANOS Rep #: [id number] : 1955 68 From: Williams Madison DO PCP: Care Physician,No Primary Status:[facility] Patient Name: Vicente Castellanos Procedure Date: 07/02/2024 7:06 AM Date of : 1955 Age: 68 Procedure: Colonoscopy Indications: High risk colon cancer surveillance: Personal history of colonic polyps Providers: Williams Madison DO Referring MD: No Primary Care Physician Medicines: Monitored Anesthesia Care Patient Profile: This is a 68 year old female. Refer to note in patient chart for documentation of history and physical. Patient has symptoms of acute dysphagia. Last Colonoscopy: 5 years ago. Complications: No immediate complications. Procedure: Pre-Anesthesia Assessment: - Prior to the procedure, a History and Physical was performed, and patient medications and allergies were reviewed. The patient is competent. The risks and benefits of the procedure and the sedation options and risks were discussed with the patient. All questions were answered and informed consent was obtained. Patient identification and proposed procedure were verified by the physician. Mental Status Examination: alert and oriented. Airway Examination: normal oropharyngeal airway and neck mobility. Respiratory Examination: clear to auscultation. CV Examination: normal. Prophylactic Antibiotics: The patient does not require prophylactic antibiotics. Prior Anticoagulants: The patient has taken no anticoagulant or antiplatelet agents except for NSAID medication. ASA Grade Assessment: II - A patient with mild systemic disease. After reviewing the risks and benefits, the patient was deemed in satisfactory condition to undergo the procedure. The anesthesia plan was to use monitored anesthesia care (MAC). Immediately prior to administration of medications, the patient was re-assessed for adequacy to receive sedatives. The heart rate, respiratory rate, oxygen saturations, blood pressure, adequacy of pulmonary ventilation, and response to care were monitored throughout the procedure. The physical status of the patient was re-assessed after the procedure. After I obtained informed consent, the scope was passed under direct vision. Throughout the procedure, the patient's blood pressure, pulse, and oxygen saturations were monitored continuously. The Colonoscope was introduced through the anus and advanced to the cecum, identified by appendiceal orifice and ileocecal valve. The colonoscopy was performed without difficulty. The patient tolerated the procedure well. The quality of the bowel preparation was excellent. The ileocecal valve, appendiceal orifice, and rectum were photographed. Scope In: 7:08:13 AM Scope Withdrawal Time 0 hours 13 minutes 22 seconds Scope Out: 7:27:32 AM Total Procedure Duration Time 0 hours 19 minutes 19 seconds Findings: The perianal and digital rectal examinations were normal. Multiple small and large-mouthed diverticula were found in the recto-sigmoid colon, sigmoid colon and descending colon. A 10 mm polyp was found in the ileocecal valve. The polyp was sessile. The polyp was removed with a jumbo cold forceps. Resection and retrieval were complete. Verification of patient identification for the specimen was done. Estimated blood loss was minimal. Stool was found at the hepatic flexure and in the cecum. Impression: - Diverticulosis in the recto-sigmoid colon, in the sigmoid colon and in the descending colon. - One 10 mm polyp at the ileocecal valve, removed with a jumbo cold forceps. Resected and retrieved. - Stool at the hepatic flexure and in the cecum. Recommendation: - Discharge patient to home. - Resume previous diet. - Continue present medications. - Await pathology results. - Repeat colonoscopy in 5 years for surveillance. Procedure Code(s): --- Professional --- 19939, Colonoscopy, flexible; with biopsy, single or multiple CPT copyright 2021 [employer]. All rights reserved. The codes documented in this report are preliminary and upon lock and dam operator review may be revised to meet current compliance requirements. Williams Madison DO 07/02/2024 7:41:42 AM This report has been signed electronically. Number of Addenda: 0 Note Initiated On: 07/02/2024 7:06 AM 07/02/24 0741 Date Williams Benedict Signature: Date (if indicated) CC: No Primary Care Physician; Williams Madison DO Date Dictated: 07/02/24 0706 Date Transcribed: Adult Basic Education Manager: DAO Signed Normal [facility] EGD Reporton 07-02-2024 EGD Report [facility] Medical Records Department [address] [place] [address] EGD Report MR#: [id number] Acct: [id number] Name: VICENTE CASTELLANOS Rep #: [id number] : 1955 68 From: Williams Madison DO PCP: Care Physician,No Primary Status:[facility] Patient Name: Vicente Castellanos Procedure Date: 07/02/2024 6:17 AM Date of : 1955 Age: 68 Procedure: Upper GI endoscopy Indications: Dysphagia Providers: Williams Madison DO Referring MD: No Primary Care Physician Medicines: Monitored Anesthesia Care Patient Profile: This is a 68 year old female. Refer to note in patient chart for documentation of history and physical. Patient has symptoms of acute dysphagia. Complications: No immediate complications. Procedure: Pre-Anesthesia Assessment: - Prior to the procedure, a History and Physical was performed, and patient medications and allergies were reviewed. The patient is competent. The risks and benefits of the procedure and the sedation options and risks were discussed with the patient. All questions were answered and informed consent was obtained. Patient identification and proposed procedure were verified by the physician. Mental Status Examination: alert and oriented. Airway Examination: normal oropharyngeal airway and neck mobility. Respiratory Examination: clear to auscultation. CV Examination: normal. Prophylactic Antibiotics: The patient does not require prophylactic antibiotics. Prior Anticoagulants: The patient has taken no anticoagulant or antiplatelet agents except for NSAID medication. ASA Grade Assessment: II - A patient with mild systemic disease. After reviewing the risks and benefits, the patient was deemed in satisfactory condition to undergo the procedure. The anesthesia plan was to use monitored anesthesia care (MAC). Immediately prior to administration of medications, the patient was re-assessed for adequacy to receive sedatives. The heart rate, respiratory rate, oxygen saturations, blood pressure, adequacy of pulmonary ventilation, and response to care were monitored throughout the procedure. The physical status of the patient was re-assessed after the procedure. After obtaining informed consent, the endoscope was passed under direct vision. Throughout the procedure, the patient's blood pressure, pulse, and oxygen saturations were monitored continuously. The Colonoscope was introduced through the mouth, and advanced to the second part of duodenum. The upper GI endoscopy was accomplished without difficulty. The patient tolerated the procedure well. Scope In: 7:02:24 AM Scope Out: 7:06:19 AM Total Procedure Duration Time 0 hours 3 minutes 55 seconds Findings: The Z-line was irregular and was found 40 cm from the incisors. Biopsies were taken with a cold forceps for histology. Verification of patient identification for the specimen was done. Estimated blood loss was minimal. A moderate Schatzki ring was found in the lower third of the esophagus. A medium-sized hiatal hernia was present. Diffuse prominent gastric folds were found in the gastric body. No gross lesions were noted in the duodenal bulb. Impression: - Z-line irregular, 40 cm from the incisors. Biopsied. - Moderate Schatzki ring. - Medium-sized hiatal hernia. - Enlarged gastric folds. - No gross lesions in the duodenal bulb. Recommendation: - Discharge patient to home. - Resume previous diet. - Continue present medications. - Await pathology results. Procedure Code(s): --- Professional --- 10842, Esophagogastroduodenosc opy, flexible, transoral; with biopsy, single or multiple CPT copyright 2021 [employer]. All rights reserved. The codes documented in this report are preliminary and upon lock and dam operator review may be revised to meet current compliance requirements. Williams Madison DO 07/02/2024 7:37:27 AM This report has been signed electronically. Number of Addenda: 0 Note Initiated On: 07/02/2024 6:17 AM 07/02/24 0738 Date Williams Bneedict Signature: Date (if indicated) CC: No Primary Care Physician; Williams Madison DO Date Dictated: 07/02/24616 Date Transcribed: Adult Basic Education Manager: DAO Signed [facility] MR/POSTOP.ANEon 07-02-2024 MR/POSTOP.[facility] Medical Records Department [address] [place] [address] Anesthesia Postop Eval I 07/02/24736 MR#: [id number] Acct: [id number] Name: VICENTE CASTELLANOS Rep #: [id number] : 1955 68 From: Bradley Joaquin PCP: Care Physician,No Primary Status:REG SDC Y Race: C Location: [place] [address] Anesthesia: Postop Eval I Current Vital Signs Temperature: 97 F Pulse Rate: 72 Blood Pressure: 87/50 Respiratory Rate: 16 Pulse Ox: 97 Oxygen Delivery Method: Room Air Assessment Airway patent: Yes Spontaneous unlabored respirations: Yes Mental status: Awake nausea: No Vomiting: No Anesthesia Complication: No Fluid Hydration Crystalloid volume administer (ml): 600 Total IV fluid infused: 600 Progress Note Anesthesia document: Postop Eval 1 completed: Yes 07/02/24737 Date Bradley Mckeonignmike Signature: Date CC: Signed [facility] MR/[id number] 07-02-2024 MR/POSTOPAN2 [facility] Medical Records Department [address] [place] [address] Anesthesia Postop Eval II 07/02/24811 MR#: [id number] Acct: [id number] Name: VICENTE CASTELLANOS Rep #: [id number] : 1955 68 From: Dmitriy Bowen MD PCP: Care Physician,No Primary Status:REG SDC Y Race: C Location: [place] [address]-1 Anesthesia Postop Eval I Sum Postop Eval Completion status Anesthesia document: Postop Eval 1 completed: Yes Anesthesia Postop Eval I Summary Anesthesia Postop Eval I Summary: Anesthesia Postop Eval I: Assessment Summary Airway patent Yes 07/02/24 07:38 [email or web address] Spontaneous unlabored Yes 07/02/24 07:38 [email or web address] respirations Mental status Awake 07/02/24 07:38 [email or web address] nausea No 07/02/24 07:38 [email or web address] Vomiting No 07/02/24 07:38 [email or web address] Anesthesia Postop Eval I: Fluid Summary Crystalloid volume administer 600 07/02/24 07:38 [email or web address] (ml) Colloids volume administered ( ml) Blood Product volume administered (ml) Total IV fluid infused 600 07/02/24 07:38 [email or web address] Anesthesia Postop Eval I: Summary Notes Anesthesia Complication No 07/02/24 07:38 [email or web address] Anesthesia Complication Comment: Post-operative progress note Anesthesia: Postop Eval II Evaluation Mental status: Awake and Calm Pain Level: 0 nausea: No Vomiting: No Complications Anesthesia Complication: No 07/02/24812 Date Dmitriy Bowen MD Cosigner Signature: Date CC: Signed Normal [facility] Surgery Specimen Level Zenia 07-02-2024 Surgery Specimen Level IV Patient Age/Sex Location Account Attending Physician VICENTE CASTELLANOS 68/F EN [id number] Williams Madison DO Specimen: [id number] Received: 07/02/24 Status: LILA Mary Num: [id number] Spec Type: EGD BIOPSY Subm Dr: Williams Madison DO HEADER OPERATION: Colonoscopy, EGD biopsy PRE-OP DIAGNOSIS: Personal history of colonic polyps, family history of colon cancer in mother, constipation, dysphagia TISSUE SUBMITTED: A- Distal esophagus biopsy, B- Ileocecal valve polyp biopsy MICROSCOPIC DIAGNOSIS A. Esophagus, distal, biopsy: * Squamous mucosa with reactive changes. * Columnar mucosa negative for goblet cell metaplasia. * Negative for dysplasia. B. Ileocecal valve, polyp, biopsy: * Sessile serrated lesion. MICROSCOPIC DESCRIPTION Slides are reviewed. GROSS DESCRIPTION A. Received in formalin in a container labeled with the patient's name, date of , and distal esophagus biopsy are multiple hedrick-pink fragments of mucosal tissue measuring 0.9 x 0.4 x 0.3 cm in aggregate. Submitted in toto in A1. B. Received in formalin in a container labeled with the patient's name, date of , and ileocecal valve polyp biopsy are multiple hedrick-pink fragments of mucosal tissue measuring 0.8 x 0.8 x 0.3 cm in aggregate. Submitted in toto in B1. [facility] 07-02-2024 CPT:69677k5 Patient Age/Sex Location Account Attending Physician VICENTE CASTELLANOS 68/F EN [id number] Williams Madison DO Signed (signature on file) Dr. Elisabeth Brandt MD 07/07/24 1213 [facility] Comment on above: Performed By: #### P SUIV ####[facility] [id number] [place], [address] MR/PAT.Rowena 06-30-2024 MR/PAT.DERRELL [facility] Medical Records Department [address] [place] [address] PAT - Anesthesia 06/30/24 1645 MR#: [id number] Acct: [id number] Name: VICENTE CASTELLANOS Rep #: [id number] : 1955 68 From: Dmitriy Bowen MD PCP: Care Physician,No Primary Status:PRE [facility] [place] Race: C Location: EN Pre-Assessment Diagnosis/Proposed Procedure Planned Operative Procedure(s): EGD, COLONOSCOPY Anesthesia History Anesthesia History - glass or mirror inspector: Anesthesia History - glass or mirror inspector Hx Hospitalization No 06/30/24 16:03 Any Problems With Anesthesia No 06/30/24 16:03 Cholinesterase deficiency No 06/30/24 16:03 You/Your Family Experience No 06/30/24 16:03 fever (hyperthermia) with Relationship Recent Exposure to Contagious Disease Does patient have nerve No 06/30/24 16:03 stimulator Patient instructed to have device shut off --Does patient have Pacemaker or ICD? When Was Last Pacemaker Check QUESTION #4 FULL TEXT: You/Your Family Experience fever (hyperthermia) with Anesthesia Last Oral Intake Last Oral intake: Last Oral Intake NPO since Meds taken in AM with sips of water? Meds patient instructed to take am of surgery PONV PONV - glass or mirror inspector: PONV - glass or mirror inspector Female Yes 06/30/24 16:03 HX of Motion Sickness No 06/30/24 16:03 HX of N/V After Surgery No 06/30/24 16:03 Non-Smoker Yes 06/30/24 16:03 Duration of Surgery greater No 06/30/24 16:03 than 60 minutes Number of Risk Factors 2 06/30/24 16:03 PONV Score Moderate Risk 06/30/24 16:03 Height Weight Height Weight: Anesthesia: Height Weight Height 5 ft 6 in 04/28/24 11:25 Respiratory Assessment Respiratory Assessment - glass or mirror inspector: Respiratory Tract Infection Hx - glass or mirror inspector Hx Respiratory Tract Infection No 06/30/24 16:03 STOP Sleep Apnea STOP Sleep Apnea - glass or mirror inspector: STOP Sleep Apnea - glass or mirror inspector Hx Hypertension No 06/30/24 16:03 Hx Sleep Apnea No 06/30/24 16:03 CPAP BIPAP Do you snore loudly (louder No 06/30/24 16:03 than talking or can be heard Do you often feel tired/ No 06/30/24 16:03 fatigued/ sleepy during daytime? Has anyone observed you stop No 06/30/24 16:03 breathing during sleep? STOP Results Negative 06/30/24 16:03 QUESTION #5 FULL TEXT : Do you snore loudly (louder than talking or can be heard through closed doors)? 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 Specify any problems Hx of Preganancy in last 3 No 06/30/24 16:03 Months Nurse Filling Out Transfusion [facility] 06/30/24 16:03 Questions: Date: 06/30/24 06/30/24 16:03 Time: 16:05 06/30/24 16:03 Patient unable to answer at this time (ie. 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 Hypertension History of transcatheter aortic valve replacement (TAVR) Hyperlipidemia Anemia Ascending aorta dilatation Arthritis DVT (deep venous thrombosis) Factor II deficiency Home Medications ???Medication ???Instructions ???Recorded ???Last Taken ???Type aspirin 81 mg tablet,delayed 81 mg PO QDAY 03/31/24 Unknown His tory release (Adult Aspirin Regimen) clobetasol 0.05 % topical cream 1 applic topical BID PRN ECZEMA Unknown History warfarin 4 mg tablet 4 mg PO QDAY 03/31/24 Unknown Hist ory warfarin 5 mg tablet 5 mg PO QDAY 03/31/24 Unknown Hist ory atorvastatin 40 mg tablet 40 mg PO QDAY 04/27/24 (more content not included)... Normal [facility] No Panel Informationon 06-30 INR International Normalized Ratio 2.1 [facility] No Panel Informationon 06-23 INR International Normalized Ratio 2.3 [facility] No Panel InformationOrdered By: Emory Adams on 06-16-2024 INR International Normalized Ratio 3.1 [facility] L/S Spine Min 4 Viewson 05-26 L/S Spine Min 4 Views [facility] Imaging Services [address] [place] [address] L/S Spine Min 4 Views MR#: [id number] Acct: [id number] Name: VICENTE CASTELLANOS Rep #: [id number] : 1955 F 68 From: Oscar Millard i DO PCP: Care Physician,No Primary Status: DEP AMB Study: L/S Spine Min 4 Views Date of Exam: 06/11/24 Exam# [id number] Ordering Dr: Yari Maxwell PROCEDURE: Lumbar spine radiographs, four views 06/11/2024 REASON FOR EXAM: Worsening chronic back pain TECHNIQUE: Four views of the lumbar spine were obtained. COMPARISON: None available FINDINGS: Four views of the lumbar spine were obtained. The bones are osteopenic. Right upper quadrant surgical clips are present. No acute lumbar vertebral body fracture. Moderate multilevel degenerative disc and facet disease in the lumbar spine, greatest at the L4-5 level. No evidence of instability on flexion and extension views. RAD/L/S Spine Min 4 Views IMPRESSION: Osteopenia. No acute bony abnormality of the lumbar spine. Moderate multilevel degenerative disc and facet disease in the lumbar spine, greatest at L4-5. No evidence of instability on flexion and extension views. Reading Location: [facility] CC: FANTASMA Shanks; No Primary Care Physician Adult Basic Education Manager: Signed Normal [facility] Orthopedic Visit Reporton Orthopedic Visit Report [facility] [address] [place] [address] 5 [place] [address] OFFICE VISIT Date of Service: 06/11/24 MR#: [id number] Acct: [id number] Name: VICENTE CASTELLANOS Rep #: [id number] : 1955 Provider: FANTASMA Shanks Age/Sex: 68/F Location: [facility] Status: Signed Intake Vital Signs 04/28/24 11:25 06/11/24 13:28 Height 5 ft 6 in 5 ft 6 in Weight: 196 lb 2 oz BMI 31.6 Intake Visit Reasons: LUMBAR SPINE Chief Complaint: Lumbar spine pain Accompanied by: Self Is patient in pain?: Yes Pain scale (1-10): 3 Allergies latex Allergy (Intermediate, Verified 06/11/24 13:32) Itching Medications ???Medication ???Instructions ???Recorded ???Confirmed ???Type aspirin 81 mg tablet,delayed 81 mg PO QDAY 03/31/24 06/11/24 Hi story release (Adult Aspirin Regimen) clobetasol 0.05 % topical cream 1 applic topical BID 03/31/2405/26 History warfarin 4 mg tablet 4 mg PO QDAY 03/31/24 06/11/24 His tory warfarin 5 mg tablet 5 mg PO QDAY 03/31/24 06/11/24 His tory acetaminophen 500 mg capsule 500 mg PO Q6H PRN 04/27/24 5 History atorvastatin 40 mg tablet 40 mg PO QDAY 04/27/24 06/11/24 Hi story cholecalciferol (vitamin D3) 250 250 mcg PO QDAY 04/27/24 06/11/24 History mcg (10,000 unit) capsule esomeprazole magnesium 40 mg 40 mg PO QDAY #90 caps 04/27/24 Rx capsule,delayed release gruns daily comprehensive nutrition PO 04/27/24 06/11/24 History hydrocortisone 2.5 % topical cream 1 applic DE QD-BID PRN hemorrhoi ds 04/27/24 06/11/24 Rx with perineal applicator #30 grams (Anusol-HC) multivitamin 1 tab PO QDAY 04/27/24 06/11/24 Hi story ondansetron HCl 4 mg tablet 4 mg PO .COMPLEX #5 tabs 04/27/24 06/11/24 Rx peg 3350-sod sulf,kugzx-ebj-eee See Rx Instructions PO .COMPLEX #2 04/27/24 06/11/24 Rx 178.7-7.3-0.5-1.12-0.9 gram oral mL soln (Suflave) thiamine HCl (vitamin B1) 50 mg 50 mg PO QDAY 04/27/24 06/11/24 Hi story tablet Have you fallen in the past year?: No PFSH Medical History intermediate (current) use of anticoagulants Hypertension History of transcatheter aortic valve replacement (TAVR) Hyperlipidemia Anemia Ascending aorta dilatation Arthritis DVT (deep venous thrombosis) Factor II deficiency Surgical History History of discectomy History of cholecystectomy Family History Mother No problems noted. Father No problems noted. Social History Smoking Status: Never smoker alcohol intake: current substance use type: does not use caffeine: Yes HPI LUMBAR SPINE Details: This documentation accurately reflects the service provided and the decisions made by , FANTASMA Shanks 06/11/24 3372. Part of today???s visit was documented by Manjinder Estrada MA, acting as scribe. VICENTE CASTELLANOS is a 68 year old F here today for lumbar spine pain. Patient is having pain in the lower back. The pain is a excruciating stabbing pain. Patient denies any falls, or injuries. Over the last 6 months she has had three different flares that have increased her pain. Says that her back pain has been going on for several years. Recently her flares have been lasting longer. Says that there is not a certain stretch or activity that causes these flares. No injections in the past. No cane or walker. Patient had a discectomy on potentially L4-5 and L5-S1 in 1991 patient is uncertain which levels. Says that after the surgery she has been more conscious with her back and activities that could increase her back pain. When bending to pick something up, or when getting in and out of bed makes the pain worse. Patient stated Dr. Salinas referred her to physical therapy. She only did 2 sessions for her back to be taught home exercise program, it did help with the pain. Patient has been currently doing exercises at home that her physical therapist Elizabet from [facility]. The patient still has a Luz Marina method back exercise booklet that she has been following. Patient is on Warfarin. She has a heart valve and Factor II deficiency. No diabetes. No breathing issues. Patient denies any smoking or doing any drugs. Patient has had some loss of feeling in the toes after her surgery. Patient states that her balance hasn't been good. Ortho Exam General General: Yes no acute distress Neurologic: Yes alert and Yes oriented x3 Spine SPINE TESTING CERVICAL THORACIC LUMBAR Musculoskeletal Strength 0=absent - 5=normal Details: Neurological exam of the lower extremities shows 5x (more content not included)... Normal [facility] Echo Complete W/ Contraston 06-10-2024 Echo Complete W/ Contrast [facility] [address] [place] [address] Echo Complete W/ Contrast 06/10/24 1458 MR#: [id number] Acct: [id number] Name: VICENTE CASTELLANOS Rep #: [id number] : 1955 68 From: Gamal Boggs MD Attending Dr: Dr. Emory Adams MD Status: MAICO MCKEON Ordering Dr: Emory Adams MD Date: 06/10/24 Location: [facility] Sex: F C Admitted: Reason For Study Reason For Study: PROSTHETIC HEART VALVE Procedure This was a 2D Doppler, Color Flow transthoracic echocardiogram. The study was technically difficult. Exam performed in department. Left Ventricle Normal LV size. The left ventricular ejection fraction is 60 %. No regional wall motion abnormalities noted. Right Ventricle Normal RV size. Normal systolic function. Atria Normal left atrium. Normal right atrium. Mitral Valve Normal mitral valve. Tricuspid Valve Normal tricuspid valve. Mild (1+) tricuspid valve insufficiency. Pulmonary artery systolic pressure is 24 mmHg. Aortic Valve Peak aortic valve gradient 11.7 mmHg. Mean aortic valve gradient 7 mmHg. Bioprosthetic aortic valve. Pulmonic Valve Normal pulmonic valve. Great Vessels Normal aortic root. The pulmonary artery is normal size. Inferior vena cava collapse with respiration. Pericardium/Pleural No pericardial effusion. Medication 22 gauge I.V. with prn adaptor inserted into right arm. Diluted definity 3ml given slow IV push to enhance endocardial definition. MMode/2D Measurements Calculations LVIDd: 4.3 cm IVSd: 1.2 cm LVOT diam: 2.0 cm LVIDs: 2.9 cm LVPWd: 1.2 cm RVDd: 3.6 cm FS: 34.2 % LVOT area: 3.1 cm2 Ao root diam: 3.3 cm asc Aorta Diam: 3.5 cm LAV(MOD-bp): 40.0 ml LAV(MOD-bp) Indexed: 20.3 ml/m2 LAV(MOD-sp2): 40.4 ml LAV(MOD-sp4): 38.6 ml SV(MOD-sp4): 53.5 ml SV(sp4-el): 56.5 ml LVAd ap4: 27.6 cm2 LVLd ap4: 6.9 cm SI(MOD-sp4): 27.2 ml/m2 EDV(MOD-sp4): 89.2 ml EDV(sp4-el): 93.7 ml LVAs ap4: 16.3 cm2 LVLs ap4: 6.0 cm ESV(MOD-sp4): 35.6 ml ESV(sp4-el): 37.2 ml EF(MOD-sp4): 60.0 % EF(sp4-el): 60.3 % LA A4 area: 15.5 cm2 LA dimension(2D): 3.5 cm RA A4 area: 14.0 cm2 TAPSE: 1.7 cm Time Measurements MV dec time: 0.30 sec Doppler Measurements Calculations MV E max chelo: 112.2 cm/sec Lat Peak E' Chelo: 10.1 cm/sec Med Peak E' Chelo: 7.5 cm/sec MV A max chelo: 129.4 cm/sec E/E' lat: 11.1 E/E' med: 14.9 MV E/A: 0.87 Ao V2 max: 171.4 cm/sec LV V1 max: 149.2 cm/sec SV(LVOT): 102.2 ml Ao max P.7 mmHg LV V1 max P.9 mmHg Ao V2 mean: 123.8 cm/sec LV V1 mean P.7 mmHg Ao mean P.7 mmHg LV V1 mean: 100.7 cm/sec Ao V2 VTI: 36.2 cm LV V1 VTI: 33.1 cm AV (velocity ratio): 0.91 JAMIL(I,D): 2.8 cm2 JAMIL(V,D): 2.7 cm2 PA V2 max: 77.6 cm/sec TR max chelo: 226.6 cm/sec TR max P.5 mmHg ECHO/Echo Complete W/ Contrast Interpretation Summary Normal LV size. The left ventricular ejection fraction is 60 %. Pulmonary artery systolic pressure is 24 mmHg. Bioprosthetic aortic valve. Mean aortic valve gradient 7 mmHg. Contrast injection was performed. Ordering Physician: Emory Adams Referring Physician: Emory Adams Performed By: Eboni Melissa RDCS 06/10/241649 Date Gamal Boggs MD CC: Dr. Emory Adams MD; No Primary Care Physician Date Dictated: 06/10/241457 Date Transcribed: 06/10/241649 Adult Basic Education Manager: Signed Normal [facility] No Panel Informationon 06-09 INR International Normalized Ratio 2.7 [facility] No Panel Informationon 06-02 INR International Normalized Ratio 2.4 [facility] Bilirubin directOrdered By: Emory Adams on 05-12-2024 Bilirubin.direct [Mass/Vol] 0.17 mg/dL 0.00-0.30 [facility] Bilirubin, totalOrdered By: Emory Adams on 05-12-2024 Bilirubin [Mass/Vol] 0.37 mg/dL 0.00-1.[address] [facility] Calculated very low density lipoprotein (VLDL) cholesterol measurementOrdered By: Emory Adams on 05-12-2024 Calculated very low density lipoprotein (VLDL) cholesterol measurement 29 mg/dL 5-40 [facility] VLDL Cholesterol 29 mg/dL 5-40 [facility] LDL calc ser/plasOrdered By: Emory Adams on 05-12-2024 Cholesterol in LDL [Mass/Vol] 100 mg/dL [facility] Comment on above: Epejijfnxb=206-516 m g/dL & Higher Khcm=302 mg/dL or greater LDL Cholesterol, Calculated 100 mg/dL [facility] Comment on above: Dvbfqffgsr=895-963 m g/dL & Higher Yztv=311 mg/dL or greater Laboratory - Chemistry and C hemistry - challengeOrdered By: Emory Adams on 05-12-2024 AST [Catalytic activity/Vol] 23 U/L <32 [facility] Lipid Profileon 05-12-2024 CHOL:HDL 3.75 Normal [facility] Comment on above: Performed By: #### L 500.4100, L500.3400 ####[facility] [address] [place], [place], [id number] Cholesterol [Mass/Vol] 177 mg/dL Normal <=200 [facility] Comment on above: Result Comment: Chol esterol level, Desirable <200 mg/dL Borderline high cholesterol 200-239 mg/dL High cholesterol >=240 mg/dL Recommendations of the NCEP Adult Treatment Panel for the following risk-cutoff thresholds for the [place] population. Performed By: #### L 500.4100, L500.3400 ####[facility] [address] [place], [address] Cholesterol in HDL [Mass/Vol] 47 mg/dL Normal [facility] Comment on above: Result Comment: Bebe onal Cholesterol Education Program (NCEP) guidelines: <40 mg/dL: Low HDL-cholesterol (major risk factor for CHD) >= 60 mg/dL: High HDL-cholesterol (negative risk factor for CHD) HDL-cholesterol is affected by a number of factors, e.g. smoking, exercise, hormones, sex and age. Performed By: #### L 500.4100, L500.3400 ####[facility] [address] [place], [address] Cholesterol in LDL [Mass/Vol] 100 mg/dL Normal [facility] Comment on above: Result Comment: Bord kmeowb=436-324 mg/dL Higher Kjwa=189 mg/dL or greater Performed By: #### L 500.4100, L500.3400 ####[facility] [address] [place], [address] Cholesterol in VLDL [Mass/Vol] 29 mg/dL Normal 5-40 [facility] Comment on above: Performed By: #### L 500.4100, L500.3400 ####[facility] [address] [place], [address] Triglyceride [Mass/Vol] 147 mg/dL Normal [facility] Comment on above: Result Comment: The drugs N-Acetylcysteine and Metamizole may falsely depress this assay. Normal range: <150 mg/dL Borderline High: 150-199 mg/dL High: 200-499 mg/dL Very High: >500 mg/dL Performed By: #### L 500.4100, L500.3400 ####[facility] [address] [place], [address] Liver Profileon 05-12-2024 Albumin [Mass/Vol] 3.8 g/dL Normal 3.4-4.8 [facility] Comment on above: Performed By: #### L 500.4100, L500.3400 ####[facility] [address] [place], [address] ALK PHOS 75 U/L Normal 35-104 [facility] Comment on above: Performed By: #### L 500.4100, L500.3400 ####[facility] [address] [place], [address] ALT [Catalytic activity/Vol] 12 U/L Normal <=34 [facility] Comment on above: Performed By: #### L 500.4100, L500.3400 ####[facility] [address] [place], [address] AST [Catalytic activity/Vol] 23 U/L Normal <=31 [facility] Comment on above: Performed By: #### L 500.4100, L500.3400 ####[facility] [address] [place], [address] Bilirubin [Mass/Vol] 0.37 mg/dL Normal 0.00-1.[address] [facility] Comment on above: Performed By: #### L 500.4100, L500.3400 ####[facility] [address] [place], [address] Bilirubin.direct [Mass/Vol] 0.17 mg/dL Normal 0.00-0.30 [facility] Comment on above: Performed By: #### L 500.4100, L500.3400 ####[facility] [address] [place], [address] Globulin (S) [Mass/Vol] 2.7 g/dL Normal 2.2-4.2 [facility] Comment on above: Performed By: #### L 500.4100, L500.3400 ####[facility] [address] [place], [address] T PROT 6.5 g/dL Normal 5.9-8.4 [facility] Comment on above: Performed By: #### L 500.4100, L500.3400 ####[facility] [address] [place], [address] Screening total cholesterol/ high density lipoprotein (HDL) cholesterol ratioOrdered By: Emory Adams on 05-12-2024 Cholesterol.total/Chol esterol in HDL [Mass ratio] 3.75 {ratio} [facility] Serum globulin measurementOr dered By: Emory Adams on 05-12-2024 Globulin (S) [Mass/Vol] 2.7 g/dL 2.2-4.2 [facility] Serum or plasma alanine em otransferase (ALT) measurementOrdered By: Emory Adams on 05-12-2024 ALT [Catalytic activity/Vol] 12 U/L <35 [facility] Serum or plasma albumin gladis urement (mass/volume)Ordered By: Emory Adams on 05-12-2024 Albumin [Mass/Vol] 3.8 g/dL 3.4-4.8 [facility] Serum or plasma alkaline dinorah sphatase measurementOrdered By: Emory Adams on 05-12-2024 ALP [Catalytic activity/Vol] 75 U/L 35-104 [facility] Serum or plasma cholesterol in HDL measurement (mass/volume)Ordered By: Emory Adams on 05-12-2024 Cholesterol in HDL [Mass/Vol] 47 mg/dL >40 [facility] Comment on above: National Cholesterol Education Program (NCEP) guidelines:<40 mg/dL: Low HDL-cholesterol (major risk factor for CHD)>= 60 mg/dL: High HDL-cholesterol (negative risk factor for CHD)HDL-cholesterol is affected by a number of factors, e.g. smoking, exercise, hormones, sex and age. Serum or plasma cholesterol measurement (mass/volume)Ordered By: Emory Adams on 05-12-2024 Cholesterol [Mass/Vol] 177 mg/dL <201 [facility] Comment on above: Cholesterol level, D esirable <200 mg/dLBorderline high cholesterol 200-239 mg/dLHigh cholesterol >=240 mg/dLRecommendations of the NCEP Adult Treatment Panel for the following risk-cutoff thresholds for the [place] population. Total proteinOrdered By: Jr haleigh Angie on 05-12-2024 Protein [Mass/Vol] 6.5 g/dL 5.9-8.4 [facility] Triglycerides measurementOrd ered By: Emory Adams on 05-12-2024 Triglyceride [Mass/Vol] 147 mg/dL <199 [facility] Comment on above: The drugs N-Acetylcy steine and Metamizole may falsely depress this assay. Normal range: <150 mg/dLBorderline High: 150-199 mg/dLHigh: 200-499 mg/dLVery High: >500 mg/dL Esophagus Dual Contraston Esophagus Dual Contrast [facility] Imaging Services [address] [place] [address] Esophagus Dual Contrast MR#: [id number] Acct: [id number] Name: VICENTE CASTELLANOS Rep #: [id number] : 1955 F 68 From: Ciro iglesias MD PCP: Care Physician,No Primary Status: REG CLI Study: Esophagus Dual Contrast Date of Exam: 05/11/24 Exam# [id number] Ordering Dr: Ciera Meier PROCEDURE: ESOPHAGUS DUAL CONTRAST 05/11/2024 REASON FOR EXAM: DYSPHAGIA - WITH TABLET TECHNIQUE: FLUOROSCOPIC TIME: 47 seconds. FLUOROGRAPHIC IMAGES: 76 COMPARISON: None. FINDINGS: The patient ingested barium. Multiple images were obtained. The esophagus is unremarkable. No evidence of obstruction. No evidence of gastroesophageal reflux. No mass lesion is seen. The patient ingested a 12 mm tablet the barium without any difficulty. RAD/Esophagus Dual Contrast IMPRESSION: Unremarkable esophagram. Reading Location: [facility] CC: SOHAIL Meier; No Primary Care Physician Adult Basic Education Manager: Signed Normal [facility] 12 Lead EKG performed by [facility] on 04-28-2024 12 Lead EKG performed by [facility] [address] [place] [address] 12 Lead EKG performed by [facility] 04/28/24 1354 MR#: [id number] Acct: [id number] Name: VICENTE CASTELLANOS Rep #: [id number] : 1955 68 From: Emory Adams MD Attending Dr: Dr. Emory Adams MD Status: DE P AMB Ordering Dr: Emory Adams MD Date: 04/28/24 Location: [facility] Sex: F C Admitted: BMS/12 Lead EKG performed by [facility] ECG Report Interpretation ---Sinus Rhythm -Left atrial enlargement. Poor R Wave progressionABNORMAL Electronically signed on 04/28/2024 at 14:[address] Emory Adams [employer] Version [id number] 04/28/24 1422 Date Emory Adams MD CC: Date Dictated: 04/28/24 1354 Date Transcribed: 04/28/24 135 Adult Basic Education Manager: Signed Normal [facility] Cardiology Visit Reporton Cardiology Visit Report [facility] [address] [place] [address] OFFICE VISIT Date of Service: 04/28/24 MR#: [id number] Acct: [id number] Name: VICENTE CASTELLANOS Rep #: [id number] : 1955 Provider: Dr. Emory ames MD Age/Sex: 68/F [place] [facility] [place]: Signed HPI HPI History of Present Illness Details: Patient is a 68-year-old white female that is here for a new patient visit. The patient is relocated here from [place]. She had undergone SAVR in [place] where she received a mechanical prosthesis in June 2023. The patient is not certain if this was from aortic stenosis or aortic insufficiency. She did have an ascending aortic aneurysm that was repaired at the same setting. So I suspect this may have been a I. She also has a history of anemia last hemoglobin done in November was 10.6 she is following up with GI and due to his have an colonoscopy in June. The patient has a history of factor V Leiden and factor II issues and is on long-term Coumadin. Her last DVT was in 2006. She does her own INR's in her home environment and they run 2???3. We will be taking over her Coumadin management with her doing her own INRs in her home environment. She is to have that set up through the [facility]. The patient notes an occasional nosebleed with her fan forced heat. The patient is not had lipids checked in some time she is on atorvastatin 40 mg daily she was intolerant of rosuvastatin or higher dose atorvastatin. The patient had no coronary artery disease on her cath prior to her surgical intervention on her aortic valve by her report. Her previous echocardiogram from July 03, 2023 showed an EF of 55-60% mild concentric LVH the left atrial cavity was moderately dilated she had prosthetic aortic valve with no regurgitation peak gradient of 9 mean gradient of 4. She had a structurally normal mitral valve with mild to moderate regurgitation noted. Currently the patient is active in her home she walks she walks her dog without restrictions. She reports that she has had a handicap placard due to her DVT when she lived in [place]. I told her she needs to obtain this through the primary service. She is looking for a primary care physician at this time. Intake Vital Signs 11/27/23 11:40 04/27/24 13:32 04/28/24 11:23 04/28/24 11:25 Height 5 ft 6 in 5 ft 6 in 5 ft 6 in 5 ft 6 in Weight: 195 lb BMI 31.4 BP 111/63 Blood Pressure Location Rt brachial Position Sitting Respiration 18 Pulse 81 Pulse Source Monitor Pulse Oximetry (%) 96 Oxygen Delivery Method room air Intake Visit Reasons: EST CARE (Self) Celluloid Trimmer Required: No Accompanied by: Self Is patient in pain?: No Allergies latex Allergy (Intermediate, Verified 03/03/25 13:26) Itching Medications ???Medication ???Instructions ???Recorded ???Confirmed ???Type aspirin 81 mg tablet,delayed 81 mg PO QDAY 03/31/24 04/28/24 Hi story release (Adult Aspirin Regimen) clobetasol 0.05 % topical cream 1 applic topical BID 03/31/2406/19 History warfarin 4 mg tablet 4 mg PO QDAY 03/31/24 04/28/24 His tory warfarin 5 mg tablet 5 mg PO QDAY 03/31/24 04/28/24 His tory acetaminophen 500 mg capsule 500 mg PO Q6H PRN 04/27/24 5 History atorvastatin 40 mg tablet 40 mg PO QDAY 04/27/24 04/28/24 Hi story cholecalciferol (vitamin D3) 250 250 mcg PO QDAY 04/27/24 04/28/24 History mcg (10,000 unit) capsule esomeprazole magnesium 40 mg 40 mg PO QDAY #90 caps 04/27/24 Rx capsule,delayed release gruns daily comprehensive nutrition PO 04/27/24 04/28/24 History hydrocortisone 2.5 % topical cream 1 applic DE QD-BID PRN hemorrhoi ds 04/27/24 04/28/24 Rx with perineal applicator #30 grams (Anusol-HC) multivitamin 1 tab PO QDAY 04/27/24 04/28/24 Hi story ondansetron HCl 4 mg tablet 4 mg PO .COMPLEX #5 tabs 04/27/24 04/27/24 Rx peg 3350-sod sulf,qkynv-jwi-god See Rx Instructions PO .COMPLEX #2 04/27/24 04/27/24 Rx 178.7-7.3-0.5-1.12-0.9 gram oral mL soln (Suflave) thiamine HCl (vitamin B1) 50 mg 50 mg PO QDAY 04/27/24 04/28/24 Hi story tablet Ejection fraction %: 55 Have you fallen in the past year?: No PFSH Medical History Hypertension History of transcatheter aortic valve replacement (TAVR) Hyperlipidemia Anemia Ascending aorta dilatation Arthritis DVT (deep venous thrombosis) Factor II deficiency Surgical History History of discectomy History of cholecystectomy Social History Smoking Status: Never smoker alcohol intake: current substance use type: does not use caffeine: Yes (more content not included)... Normal [facility] Gastroenterology Visit Repor ton 04-27-2024 Gastroenterology Visit Report [facility] [address] [place] [place] [address] OFFICE VISIT Date of Service: 04/27/24 MR#: [id number] Acct: [id number] Name: VICENTE CASTELLANOS Rep #: [id number] : 1955 Provider: SOHAIL jackson Age/Sex: 68/F Location: [facility] Status: Signed Intake Vital Signs 11/27/23 11:40 04/27/24 13:32 Height 5 ft 6 in 5 ft 6 in Weight: 196 lb 4 oz BMI 31.6 BP 120/77 Respiration 18 Pulse 89 Pulse Oximetry (%) 98 Oxygen Delivery Method room air Intake Visit Reasons: Pre colon/hemorrhoids Chief Complaint: personal h/o colon polyps Celluloid Trimmer Required: No Is patient in pain?: No Allergies latex Allergy (Intermediate, Verified 04/27/24 13:26) Itching Medications ???Medication ???Instructions ???Recorded ???Confirmed ???Type aspirin 81 mg tablet,delayed 81 mg PO QDAY 03/31/24 04/27/24 Hi story release (Adult Aspirin Regimen) clobetasol 0.05 % topical cream 1 applic topical BID 03/31/2405/19 History warfarin 4 mg tablet 4 mg PO QDAY 03/31/24 04/27/24 His tory warfarin 5 mg tablet 5 mg PO QDAY 03/31/24 04/27/24 His tory acetaminophen 500 mg capsule 500 mg PO Q6H PRN 04/27/24 5 History atorvastatin 40 mg tablet 40 mg PO QDAY 04/27/24 04/27/24 Hi story cholecalciferol (vitamin D3) 250 250 mcg PO QDAY 04/27/24 04/27/24 History mcg (10,000 unit) capsule esomeprazole magnesium 40 mg 40 mg PO QDAY #90 caps 04/27/24 Rx capsule,delayed release gruns daily comprehensive nutrition PO 04/27/24 History hydrocortisone 2.5 % topical cream 1 applic DE QD-BID PRN hemorrhoi ds 04/27/24 04/27/24 Rx with perineal applicator #30 grams (Anusol-HC) multivitamin 1 tab PO QDAY 04/27/24 04/27/24 Hi story ondansetron HCl 4 mg tablet 4 mg PO .COMPLEX #5 tabs 04/27/24 04/27/24 Rx peg 3350-sod sulf,alkoh-rdn-uer See Rx Instructions PO .COMPLEX #2 04/27/24 04/27/24 Rx 178.7-7.3-0.5-1.12-0.9 gram oral mL soln (Suflave) thiamine HCl (vitamin B1) 50 mg 50 mg PO QDAY 04/27/24 04/27/24 Hi story tablet Have you fallen in the past year?: No PFSH Medical History (Updated 04/27/24 @ 14:01 by Ciera Meier NP-C) Hypertension History of transcatheter aortic valve replacement (TAVR) Hyperlipidemia Anemia Ascending aorta dilatation Arthritis DVT (deep venous thrombosis) Factor II deficiency Surgical History (Updated 03/31/24 @ 14:14 by Fernanda Poon RN) History of discectomy History of cholecystectomy Social History Smoking Status: Never smoker HPI HPI Chief Complaint: personal h/o colon polyps Details: VICENTE CASTELLANOS, is a 68 F who presents to the office today for COLON 04/09/2019 severe diverticulosis, internal hemorrhoids - recall colon 5 years - mother with colon CA - personal h/o colon polyps - denies any bleeding - she reports having terrible trouble with hemorrhoids - pain and irritation - sitz baths daily for the past week - prior to this she was seeing blood on toilet tissue 0 but states this was not coming from the hemorrhoids - causing genital irritation - she states she saw a DOMESTIC TECHNICIAN a year ago who recommended she stop using creams and supp and wanted her to come back in 2 weeks for biopsy - she reports she never followed up - causing terrible irritation and itching - she feels external hemorrhoids - denies any vaginal bleeding - she is on Coumadin - 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 Adams tomorrow - just moved here form [place] - daughter works in ED here at [facility] - stools are balls - has not been drinking as much water as she normally does - has not been taking gruns with bran muffins she was previously eating - had two 9lb babies - she reports she does not always have sensation with evacuation, decreased urge - she has been off Nexium since November 2023 - c/o dysphagia high in the esophagus - these episodes were not present when on Nexium - HB is manageable - denies any N/V - denies any weight loss Exam Const General: cooperative, healthy appearing, no acute distress and well developed Nutritional Appearance: well nourished Orientation: alert and oriented x3 HENMT Head: normocephalic Ears: hearing grossly normal bilaterally Mouth: moist mucous membranes Teeth and gingiva: dentition normal Eyes Conjunctivae: conjunctivae normal Sclera: sclerae normal Neck Neck: normal visual inspection, full ROM and trachea midline Resp Effort Inspection: normal respiratory effort, able to speak in complete sentences and symmetric chest movement GI Inspection: normal to inspection Auscultation: normal bowel sounds Palpation: soft and no hepatosplen (more content not included)... Normal [facility] Basic Metabolic Profile (BMP )on 11-27-2023 BUN/CRE 16.8 RATIO Normal 10-20 [facility] Comment on above: Performed By: #### L 100.0100, L501.6710, L500.2500, L101.9900 #### [facility] [address] [place], [address] CA,Total 9.1 mg/dL Normal 8.5-10.1 [facility] Comment on above: Performed By: #### L 100.0100, L501.6710, L500.2500, L101.9900 #### [facility] [address] [place], [address] Chloride [Moles/Vol] 109 mmol/L High 98-[address] [facility] Comment on above: Performed By: #### L 100.0100, L501.6710, L500.2500, L101.9900 #### [facility] [address] [place], [address] CO2 [Moles/Vol] 29.0 mmol/L Normal 21.0-32.0 [facility] Comment on above: Performed By: #### L 100.0100, L501.6710, L500.2500, L101.9900 #### [facility] [address] [place], [address] Creatinine [Mass/Vol] 0.83 mg/dL Normal 0.55-1.02 [facility] Comment on above: Result Comment: The validity of the calculated GFR GFRAA in patients over 70 years has not been determined. Clinical correlation is essential. Performed By: #### L 100.0100, L501.6710, L500.2500, L101.9900 #### [facility] [address] [place], [address] ECRCL 76.69 ml/min Normal [facility] Comment on above: Performed By: #### L 100.0100, L501.6710, L500.2500, L101.9900 #### [facility] [address] [place], [address] EST GFR - AA 88 mL/min Normal >60 [facility] Comment on above: Result Comment: Afri can Finnish GFR Calc Performed By: #### L 100.0100, L501.6710, L500.2500, L101.9900 #### [facility] [address] [place], [address] GAP 2 Low 5-15 [facility] Comment on above: Performed By: #### L 100.0100, L501.6710, L500.2500, L101.9900 #### [facility] [address] [place], [address] GFR/1.73 sq M.predicted among non-blacks MDRD (S/P/Bld) [Vol rate/Area] 73 mL/min/{1.73_m2} Normal >60 [facility] Comment on above: Result Comment: Non- GFR Calc Performed By: #### L 100.0100, L501.6710, L500.2500, L101.9900 #### [facility] [address] [place], [address] Glucose [Mass/Vol] 109 mg/dL High 74-106 [facility] Comment on above: Result Comment: Fast ing Glucose result from 100 to 125 mg/dL suggests IMPAIRED HOMEOSTASIS per A.D.A. criteria. Performed By: #### L 100.0100, L501.6710, L500.2500, L101.9900 #### [facility] [address] [place], [address] Potassium [Moles/Vol] 4.3 mmol/L Normal 3.5-5.1 [facility] Comment on above: Performed By: #### L 100.0100, L501.6710, L500.2500, L101.9900 #### [facility] [address] [place], [address] Sodium [Moles/Vol] 140 mmol/L Normal 136-145 [facility] Comment on above: Performed By: #### L 100.0100, L501.6710, L500.2500, L101.9900 #### [facility] [address] [place], [address] Urea nitrogen [Mass/Vol] 14 mg/dL Normal 7-18 [facility] Comment on above: Performed By: #### L 100.0100, L501.6710, L500.2500, L101.9900 #### [facility] [address] [place], [address] CBC W/Diff, Automatedon 10-0 Absolute Lymph 1.56 X10 3/uL Normal 0.83-4.51 [facility] Comment on above: Performed By: #### L 100.0100, L501.6710, L500.2500, L101.9900 ####[facility] [address] [place], [address] Absolute Neut 3.1 X10 3/uL Normal 2.0-7.7 [facility] Comment on above: Performed By: #### L 100.0100, L501.6710, L500.2500, L101.9900 ####[facility] [address] [place], [address] Basophils/100 WBC (Bld) 0.7 % Normal 0-1 [facility] Comment on above: Performed By: #### L 100.0100, L501.6710, L500.2500, L101.9900 ####[facility] [address] [place], [address] Eosinophils/100 WBC (Bld) 3.0 % Normal 0-5 [facility] Comment on above: Performed By: #### L 100.0100, L501.6710, L500.2500, L101.9900 ####[facility] [address] [place], [address] Erythrocyte distribution width (RBC) [Ratio] 13.3 % Normal 11.6-14.6 [facility] Comment on above: Performed By: #### L 100.0100, L501.6710, L500.2500, L101.9900 ####[facility] [address] [place], [address] Hematocrit (Bld) [Volume fraction] 33.7 % Low 37-47 [facility] Comment on above: Performed By: #### L 100.0100, L501.6710, L500.2500, L101.9900 ####[facility] [address] [place], [address] Hemoglobin (Bld) [Mass/Vol] 10.6 g/dL Low 12.0-15.0 [facility] Comment on above: Performed By: #### L 100.0100, L501.6710, L500.2500, L101.9900 ####[facility] [address] [place], [address] IG% 0.200 Normal 0.0-0.9 [facility] Comment on above: Result Comment: IG% - Immature Granulocytes (promyelocytes, myelocytes and metamyelocytes) > 1% indicates that a LEFT SHIFT is Present. Performed By: #### L 100.0100, L501.6710, L500.2500, L101.9900 ####[facility] [address] [place], [address] Lymphocytes/100 WBC (Bld) 28.8 % Normal 19-41 [facility] Comment on above: Performed By: #### L 100.0100, L501.6710, L500.2500, L101.9900 ####[facility] [address] [place], [address] MCH (RBC) [Entitic mass] 31.3 pg Normal 27.0-32.0 [facility] Comment on above: Performed By: #### L 100.0100, L501.6710, L500.2500, L101.9900 ####[facility] [address] [place], [address] MCHC (RBC) [Mass/Vol] 31.5 g/dL Low 32-36 [facility] Comment on above: Performed By: #### L 100.0100, L501.6710, L500.2500, L101.9900 ####[facility] [address] [place], [address] MCV (RBC) [Entitic vol] 99.4 fL High 81-99 [facility] Comment on above: Performed By: #### L 100.0100, L501.6710, L500.2500, L101.9900 ####[facility] [address] [place], [address] Monocytes/100 WBC (Bld) 10.3 % High 0-10 [facility] Comment on above: Performed By: #### L 100.0100, L501.6710, L500.2500, L101.9900 ####[facility] [address] [place], [address] Neutrophils/100 WBC (Bld) 57.0 % Normal 47-70 [facility] Comment on above: Performed By: #### L 100.0100, L501.6710, L500.2500, L101.9900 ####[facility] [address] [place], [address] Nucleated RBC (Bld) [#/Vol] 0 10*3/uL Normal 0-5 [facility] Comment on above: Performed By: #### L 100.0100, L501.6710, L500.2500, L101.9900 ####[facility] [address] [place], [address] Platelet mean volume (Bld) [Entitic vol] 10.2 fL Normal 6.2-12.0 [facility] Comment on above: Performed By: #### L 100.0100, L501.6710, L500.2500, L101.9900 ####[facility] [address] [place], [address] Platelets (Bld) [#/Vol] 273 10*3/uL Normal 150-450 [facility] Comment on above: Performed By: #### L 100.0100, L501.6710, L500.2500, L101.9900 ####[facility] [address] [place], [address] RBC (Bld) [#/Vol] 3.39 10*6/uL Low 4.2-5.4 [facility] Comment on above: Performed By: #### L 100.0100, L501.6710, L500.2500, L101.9900 ####[facility] [address] [place], [address] RDW SD 48.9 fl High 35.1-43.9 [facility] Comment on above: Performed By: #### L 100.0100, L501.6710, L500.2500, L101.9900 ####[facility] [address] [place], [address] WBC (Bld) [#/Vol] 5.4 10*3/uL Normal 4.4-11.0 [facility] Comment on above: Performed By: #### L 100.0100, L501.6710, L500.2500, L101.9900 ####[facility] [address] [place], [address] CRPon 11-27-2023 C-REACTIVE PROT < 2.90 Normal 0.0-3.0 [facility] Comment on above: Result Comment: C-Re active Protein (CRP) provides useful information for the diagnosis, therapy and monitoring of inflammatory processes and associated diseases. For the evaluation of Relative Risk for Cardiovascular Disease, a High Sensitivity CRP (HSCRP) should be ordered. Performed By: #### L 100.0100, L501.6710, L500.2500, L101.9900 #### [facility] [address] [place], [address] Emergency Department Summary on 11-27-2023 Emergency Department Summary [facility] Medical Records Department [address] [place] [address] Emergency Department Summary 11/27/23 MR#: [id number] Acct: [id number] Name: VICENTE CASTELLANOS Rep #: [id number] : 1955 67 From: Vivienne Martinez DO PCP: Drea Jones [employer] Status:REG ER Location: ED HPI History of Present Illness Chief Complaint: Back Informant: patient Narrative Narrative: Patient is a 67-year-old female visiting from [place] with her daughter presenting with worsening low back pain. Patient has a remote history of L5/S1 discectomy performed in 1991. States every once in a while her back will spasm but she has been doing well. She notes for the past 2 to 3 weeks however she is been having worsening low back pain and spasms. It is worse on the right. She denies any radiation pains. She also feels that she is getting some weakness is worsening in her bilateral thighs. Daughter notes that sometimes she seems to be dragging her feet. She actually has an appointment to see his Dr. Salinas, spine surgery next week. Patient has been taking old oxycodone as well as methocarbamol with minimal relief of her symptoms. Did recently drive here from [place] and a lot of time in the car. Did try to walk around. Does have mechanical valve as well as clotting disorder and is on Coumadin. Denies any bowel or bladder incontinence. Denies any saddle anesthesia. PFSH PFSH Home Medications ???Medication ???Instructions ???Recorded ???Last Taken ???Type oxycodone-acetaminophen 5 mg-325 1 tab PO Q8H PRN pain 3 days #10 11/27/23 Unknown Rx mg tablet (Percocet) tabs prednisone 20 mg tablet 40 mg (2 x 20 mg) PO DAILY #10 tabs 11/27/23 Unknown Rx Allergy/AdvReac Type Severity Reaction Status Date / Time latex Allergy Intermediate Itching Verified 11/27/23 11:39 Social History Smoking Status: Never smoker ROS ROS ED Constitutional Constitutional ED: Denies chills or fever(s) Cardiovascular Cardiovascular: Denies chest pain Respiratory/Chest Respiratory/Chest: Denies dyspnea Gastrointestinal Gastrointestinal: Denies constipation or diarrhea Genitourinary Genitourinary ED: Denies dysuria or hematuria Musculoskeletal Musculoskeletal: Reports back pain Integumentary Denies rash Neurologic Neurologic: Reports weakness; Denies headache(s) or paresthesias Hematologic/Lymphatic Hematologic/Lymphatic: Reports easy bleeding and easy bruising EXAM Physical Exam Const Vital Signs: 11/27/23 11:40 11/27/23 13:39 Temperature 97.5 F L Temperature Source Temporal Pulse Rate 104 H 89 Respiratory Rate 16 14 Blood Pressure 133/74 H 136/66 H Blood Pressure Mean 93 89 Pulse Ox 98 98 Oxygen Delivery Method Room Air Room Air Positive well nourished and well developed General Appearance ED: well developed and NAD HEENT Reports moist mucous membranes Neck supple Resp normal respiratory effort and clear to auscultation bilaterally Cardio regular rate and regular rhythm GI normal to inspection, nondistended, normoactive bowel sounds and soft to palpation Back/Spine normal to inspection Back/Spine Narrative: Unable to elicit patellar reflexes bilaterally. No clonus at the ankles. Patient has difficulty standing on her heels and is slightly unsteady with trying to turn in a tight [place]. She otherwise has a steady gait. As she is able to stand on the balls of her feet. Tenderness palpation over the right L5 paraspinal area. Sensation intact in all dermatomes. Thoracic Spine / Upper Back: Negative for paraspinal muscle tenderness Lumbar Spine / Lower Back: ROM limited Neuro oriented x3 and no sensory deficits noted Sensorium / Orientation: alert Psych mental status grossly normal Skin no rashes or lesions noted and no wounds MDM MDM MDM Narrative Medical decision making narrative: Patient is evaluated for worsening back pain. Daughter notes that she seems to start to drag her feet and concerns that she is developing a foot drop. She does have some weakness trying to put her weight on her heels. She is supposed to see Dr. Salinas in 5 days. I did touch base with him and he is not a possible obtained his MRI would be very helpful. As patient is on Coumadin she is at higher risk of epidural hematoma however she has not had any recent injections. She does not have any cauda equina symptoms at this time. I was able to call for MRI and I do have availability this afternoon. Initially MRI without contrast is ordered however I was notified by the technicians that she had a some sclerosing versus osteo noted of her vertebral bodies so IV contrast was ordered on. I did also add on basic labs including CBC, BMP as well as a CRP and ESR. Lab work is largely normal except for mild (more content not included)... Normal [facility] Erythrocyte Sed Rateon 11-26 SED RATE 14 mm/hr Normal 0-30 [facility] Comment on above: Performed By: #### L 100.0100, L501.6710, L500.2500, L101.9900 ####[facility] [address] [place], [address] Spine Lumbar W/WO Contraston 11-27-2023 Spine Lumbar W/WO Contrast [facility] Imaging Services [address] [place] [address] Spine Lumbar W/WO Contrast MR#: [id number] Acct: [id number] Name: VICENTE CASTELLANOS Rep #: [id number] : 1955 F 67 From: Kellie yu MD PCP: Drea Jones Status: REG ER Study: Spine Lumbar W/WO Contrast Date of Exam: 04/20 Exam# [id number] Ordering Dr: [place] [id number] HISTORY: acute on chronic pain, thigh weakness, lumbar discectomy 1991. TECHNIQUE: Multiplanar and multisequence MR images of the lumbar spine were obtained before and after the intravenous administration of 19 mL Clariscan. 204 images. COMPARISON: None. FINDINGS: VERTEBRAE: Vertebral body heights maintained. Degenerative bone marrow endplate changes of T12, L1, and L4-5. ALIGNMENT: No anterior or posterior subluxation. SPINAL CANAL: Normal morphology and position of the conus medullaris at T12-L1. No epidural collection or enhancing intradural extramedullary mass. INTERVERTEBRAL DISCS: T12-L1: No significant signal abnormality, posterior disc protrusion, central canal stenosis, or foraminal narrowing based on the sagittal images. L1-2: Mild disc bulge with facet arthropathy resulting in minimal narrowing of the thecal sac. No significant foraminal narrowing. L2-3: Moderate disc bulge with facet arthropathy superimposed on a developmentally narrow spinal canal resulting in severe central canal stenosis and mild left foraminal narrowing L3-4: Mild disc bulge with facet arthropathy resulting in mild central canal stenosis and bilateral foraminal narrowing. L4-5: Mild disc bulge with facet arthropathy. Left laminotomy. No significant central canal stenosis. Mild-moderate bilateral foraminal narrowing. L5-S1: Mild left paracentral disc protrusion extending into the left lateral recess with left S1 nerve root impingement, no significant central canal stenosis, and mild left foraminal narrowing. SOFT TISSUES: No paraspinal fluid collection. 4 cm right lower pole renal cyst. MRI/Spine Lumbar W/WO Contrast IMPRESSION: Degenerative disc and facet disease superimposed on a developmentally narrow spinal canal at L2-3 resulting in severe spinal canal stenosis and mild left foraminal narrowing. Multilevel degenerative disc disease with mild spinal canal stenosis and bilateral foraminal narrowing of L3-4. Postoperative and change of L4-5 with bilateral foraminal narrowing. Left paracentral disc protrusion of L5-S1 resulting in left nerve root impingement and mild left foraminal narrowing. Electronically Signed: Kellie Garza MD at 15:35 EDT Reading Location ID and State: [facility] / [place] Tel , Service support , CC: Drea BUCK Bite; Dr. Vivienne Martinez DO Adult Basic Education Manager: Signed Normal [facility] Vital Signs Date Time Vital Sign Value Performing Clinician Ivis manley 10-06-2024 10:04-0400 Body height 167.64 cm No Primary Care Physician [facility] 10-06-2024 10:04-0400 Body mass index (BMI) [Ratio] 32.9 kg/m2 No Primary Care Physician [facility] 10-06-2024 10:04-0400 Body temperature 97.8 [degF] No Primary Care Physician [facility] 10-06-2024 10:04-0400 Body weight 92.53 kg No Primary Care Physician [facility] 10-06-2024 10:04-0400 Diastolic blood pressure 60 mm[Hg] No Primary Care Physician [facility] 10-06-2024 10:04-0400 Heart rate 88 /min No Primary Care Physician [facility] 10-06-2024 10:04-0400 Respiratory rate 18 /min No Primary Care Physician [facility] 10-06-2024 10:04-0400 SaO2% (BldA) [Mass fraction] 98 % No Primary Care Physician [facility] 10-06-2024 10:04-0400 Systolic blood pressure 136 mm[Hg] No Primary Care Physician [facility] 09-01-2024 10:12-0400 Body temperature 96.4 [degF] Ciera Meier [employer] Work Phone: [facility] 09-01-2024 10:12-0400 Diastolic blood pressure 93 mm[Hg] Ciera Meier [employer] Work Phone: [facility] 09-01-2024 10:12-0400 Heart rate 101 /min Ciera Meier [employer] Work Phone: 2(424)[phone] [place] [address] 09-01-2024 10:12-0400 Respiratory rate 16 /min iCera Meier [employer] Work Phone: [facility] 09-01-2024 10:12-0400 SaO2% (BldA) [Mass fraction] 97 % Ciera Meier [employer] Work Phone: [facility] 09-01-2024 10:12-0400 Systolic blood pressure 116 mm[Hg] Ciera Meier [employer] Work Phone: [facility] 09-01-2024 07:57-0400 Body height 167.64 cm Ciera Meier [employer] Work Phone: [facility] 09-01-2024 07:57-0400 Body mass index (BMI) [Ratio] 32.1 kg/m2 Ciera Meier [employer] Work Phone: [facility] 09-01-2024 07:57-0400 Body weight 90.26 kg Ciera Meier [employer] Work Phone: 1(854)604-617003 [place] [address] 07-21-2024 11:22-0400 Body height 167.64 cm Ciera Meier [employer] Work Phone: 2(151)[phone] [place] [address] 07-21-2024 11:22-0400 Body mass index (BMI) [Ratio] 31.9 kg/m2 Ciera Meier [employer] Work Phone: [facility] 07-21-2024 11:22-0400 Body weight 89.86 kg Ciera Meier [employer] Work Phone: [facility] 07-21-2024 11:22-0400 Diastolic blood pressure 70 mm[Hg] Ciera Meier [employer] Work Phone: [facility] 07-21-2024 11:22-0400 Heart rate 91 /min Ciera Meier [employer] Work Phone: [facility] 07-21-2024 11:22-0400 Respiratory rate 16 /min Ciera Meier [employer] Work Phone: [facility] 07-21-2024 11:22-0400 SaO2% (BldA) [Mass fraction] 94 % Ciera Meier [employer] Work Phone: [facility] 07-21-2024 11:22-0400 Systolic blood pressure 110 mm[Hg] Ciera Meier [employer] Work Phone: [facility] 07-02-2024 07:45-0400 Body temperature 97.5 [degF] Ciera Meier [employer] Work Phone: [facility] 07-02-2024 07:45-0400 Diastolic blood pressure 57 mm[Hg] Ciera Meier [employer] Work Phone: [facility] 07-02-2024 07:45-0400 Heart rate 51 /min Ciera Meier [employer] Work Phone: [facility] 07-02-2024 07:45-0400 Respiratory rate 18 /min Ciera Meier [employer] Work Phone: [facility] 07-02-2024 07:45-0400 SaO2% (BldA) [Mass fraction] 98 % Ciera Meier [employer] Work Phone: [facility] 07-02-2024 07:45-0400 Systolic blood pressure 106 mm[Hg] Ciera Meier [employer] Work Phone: [facility] 07-02-2024 05:58-0400 Body height 167.64 cm Ciera Meier [employer] Work Phone: [facility] 07-02-2024 05:58-0400 Body mass index (BMI) [Ratio] 31.5 kg/m2 Ciera Meier [employer] Work Phone: [facility] 07-02-2024 05:58-0400 Body weight 88.54 kg Ciera Meier [employer] Work Phone: 4(233)[phone] [place] [address] 06-11-2024 13:28-0400 Body mass index (BMI) [Ratio] 31.6 kg/m2 Ciera Meier [employer] Work Phone: 7(670)[phone] [place] [address] 06-11-2024 13:28-0400 Body weight 88.96 kg Ciera Meier [employer] Work Phone: [facility] 04-28-2024 11:25-0500 Body height 167.64 cm Ciera Meier [employer] Work Phone: 7(259)128-820503 [place] [address] 04-28-2024 11:23-0500 Body mass index (BMI) [Ratio] 31.4 kg/m2 Ciera Meier [employer] Work Phone: 7(070)109-518203 [place] [address] 04-28-2024 11:23-0500 Body weight 88.45 kg Ciera Meier [employer] Work Phone: [facility] 04-28-2024 11:23-0500 Diastolic blood pressure 63 mm[Hg] Ciera Meier [employer] Work Phone: 8(768)734-760303 [place] [address] 04-28-2024 11:23-0500 Heart rate 81 /min Ciera Meier [employer] Work Phone: [facility] 04-28-2024 11:23-0500 Respiratory rate 18 /min Ciera Meier [employer] Work Phone: 0(233)[phone] [place] [address] 04-28-2024 11:23-0500 SaO2% (BldA) [Mass fraction] 96 % Ciera Meier [employer] Work Phone: [facility] 04-28-2024 11:23-0500 Systolic blood pressure 111 mm[Hg] Ciera Meier [employer] Work Phone: [facility] 04-27-2024 13:32-0500 Body mass index (BMI) [Ratio] 31.6 kg/m2 Ciera Meier [employer] Work Phone: [facility] 04-27-2024 13:32-0500 Body weight 89.01 kg Ciera Meier [employer] Work Phone: [facility] 04-27-2024 13:32-0500 Diastolic blood pressure 77 mm[Hg] Ciera Meier [employer] Work Phone: [facility] 04-27-2024 13:32-0500 Heart rate 89 /min Ciera Meier [employer] Work Phone: [facility] 04-27-2024 13:32-0500 Respiratory rate 18 /min Ciera Meier [employer] Work Phone: [facility] 04-27-2024 13:32-0500 SaO2% (BldA) [Mass fraction] 98 % Ciera Meier [employer] Work Phone: [facility] 04-27-2024 13:32-0500 Systolic blood pressure 120 mm[Hg] Ciera Meier [employer] Work Phone: [facility] Encounters Encounter Date Encounter Type Care Provider Facility Start: 10-20-2024 ambulatory Alma Penningtonlay Facility :[facility] Start: 10-13-2024 ambulatory Alma Lori Facility :[facility] Start: 10-06-2024 End: 10-06-[address] Alma Sandoval MD -[facility] Work Phone: Start: 10-06-2024 End: 10-06-2024 ambulatory No Primary Care Physician -[facility] Start: 09-29-2024 ambulatory No Primary Car e Physician Facility:[facility] Start: 09-29-2024 Non-patient / Non-visit No Primary Care Physician -[facility] Work Phone: Start: 09-22-2024 ambulatory No Primary Car e Physician Facility:[facility] Start: 09-22-2024 Non-patient / Non-visit No Primary Care Physician -[facility] Work Phone: Start: 09-17-2024 ambulatory No Primary Car e Physician Facility:[facility] Start: 09-17-2024 Non-patient / Non-visit No Primary Care Physician -[facility] Work Phone: Start: 09-01-2024 End: 09-01-2024 Emergency department patient visit Ciera LIPSCOMBC Work Phone: -Emergency Department Work Phone: Start: 09-01-2024 ambulatory No Primary Car e Physician Facility:[facility] Start: 09-01-2024 Non-patient / Non-visit No Primary Care Physician -[facility] Work Phone: Start: 08-25-2024 ambulatory No Primary Car e Physician Facility:[facility] Start: 08-25-2024 Non-patient / Non-visit No Primary Care Physician -[facility] Work Phone: Start: 08-18-2024 ambulatory No Primary Car e Physician Facility:[facility] Start: 08-18-2024 Non-patient / Non-visit No Primary Care Physician -[facility] Work Phone: Start: 08-11-2024 ambulatory No Primary Car e Physician Facility:[facility] Start: 08-11-2024 Non-patient / Non-visit No Primary Care Physician -[facility] Work Phone: Start: 08-04-2024 ambulatory No Primary Car e Physician Facility:[facility] Start: 08-04-2024 Non-patient / Non-visit No Primary Care Physician -[facility] Work Phone: Start: 07-28-2024 ambulatory No Primary Car e Physician Facility:[facility] Start: 07-28-2024 Non-patient / Non-visit No Primary Care Physician -[facility] Work Phone: Start: 07-21-2024 End: 07-21-2024 Patient encounter procedure Ciera SAUCEDA -[facility] Work Phone: Start: 07-21-2024 End: 07-21-2024 ambulatory Ciera SAUCEDA Work Phone: [facility] Work Phone: Start: 07-07-2024 ambulatory No Primary Car e Physician Facility:[facility] Start: 07-07-2024 Non-patient / Non-visit No Primary Care Physician -[facility] Work Phone: Start: 07-02-2024 ambulatory No Primary Car e Physician Facility:[facility] Start: 07-02-2024 Non-patient / Non-visit Williams Madison DO -[facility] Start: 07-02-2024 End: 07-02-2024 Admission to same day surgery center Williams Madison DO -Endoscopy Work Phone: Start: 07-02-2024 End: 07-02-2024 ambulatory Ciera SAUCEDA Work Phone: [facility] Work Phone: Start: 06-30-2024 ambulatory No Primary Car e Physician Facility:[facility] Start: 06-30-2024 Non-patient / Non-visit No Primary Care Physician -[facility] Work Phone: Start: 06-23-2024 ambulatory No Primary Car e Physician Facility:[facility] Start: 06-23-2024 Non-patient / Non-visit No Primary Care Physician -[facility] Work Phone: Start: 06-16-2024 ambulatory No Primary Car e Physician Facility:[facility] Start: 06-16-2024 Non-patient / Non-visit No Primary Care Physician -[facility] Work Phone: Start: 06-11-2024 End: 06-11-2024 Patient encounter procedure Yari MEEK -[facility] Work Phone: Start: 06-11-2024 End: 06-11-2024 ambulatory No Primary Care Physician Facility:[facility] Start: 06-10-2024 ambulatory No Primary Car e Physician Facility:[facility] Start: 06-10-2024 Non-patient / Non-visit Dr. Gamal Boggs MD -[facility] Start: 06-10-2024 End: 06-10-[address] Emory Adams MD -[facility] Work Phone: Start: 06-09-2024 End: 06-10-2024 ambulatory No Primary Care Physician Facility:[facility] Start: 06-09-2024 Non-patient / Non-visit No Primary Care Physician -[facility] Work Phone: Start: 06-02-2024 ambulatory No Primary Car e Physician Facility:[facility] Start: 06-02-2024 Non-patient / Non-visit No Primary Care Physician -[facility] Work Phone: Start: 05-12-2024 End: 05-12-2024 ambulatory Ciera Meier NP-C Work Phone: [facility] Work Phone: Start: 05-12-2024 End: 05-12-[address] Emory Adams MD -Laboratory Work Phone: Start: 05-11-2024 End: 05-12-2024 ambulatory Ciera Meier NP-C Work Phone: [facility] Work Phone: Start: 05-11-2024 End: 05-11-2024 Patient encounter procedure Ciera SAUCEDA -Radiology, [facility] Work Phone: Start: 05-11-2024 End: 05-11-2024 ambulatory No Primary Care Physician Facility:[facility] Start: 04-28-2024 End: 04-28-[address] Emory Adams MD -[facility] Work Phone: Start: 04-28-2024 End: 04-28-2024 ambulatory Emory Adams Facility:[facility] Start: 04-27-2024 End: 04-27-2024 Patient encounter procedure Ciera SAUCEDA -[facility] Work Phone: Start: 04-27-2024 End: 04-27-2024 ambulatory Ciera Meier Facility:[facility] Start: 11-27-2023 End: 11-27-2023 Emergency department patient visit Vivienne Martinez Facility:[facility] Procedures Date Procedure Procedure Detail Performing Clinician Start: 07-02-2024 Colonoscopy Ciera SAUCEDA Work Phone: Start: 06-11-2024 X-ray of lumbosacral spine Ciera SAUCEDA Work Phone: Start: 05-11-2024 X-ray of esophagus w ith double contrast Ciera SAUCEDA Work Phone: Start: 04-28-2024 Evaluation of diagno stic study results Ciera SAUCEDA Work Phone: Plan of Treatment Date Care Activity Detail Author Start: 09-01-2024 [facility] Start: 07-21-2024 Patient referral [facility] Work Phone: Start: 07-02-2024 Colonoscopy w/biopsy single/multiple COLONOSCOPY AND BIOPSY [facility] Start: 07-02-2024 Egd transoral biopsy single/multiple EGD BIOPSY SINGLE/MULTIPLE [facility] Start: 07-02-2024 Patient discharge [facility] Start: 06-11-2024 Patient referral [facility] Work Phone: Start: 04-27-2024 Patient referral [facility] Work Phone: CBC W Auto Different ial panel - Blood [facility] Comprehensive metabo lic 2000 panel - Serum or Plasma [facility] DXA Bone [Mass/Area] Bone density [facility] Magnesium measurement [facility] MG Breast - bilatera l Screening [facility] Patient Education ED Reynaga's Cyst [facility] Work Phone: Patient referral [facility] Work Phone: Heart [facility] Vitamin D, 25-hydrox y measurement [facility] XR Foot GE 3 Views [facility] Immunizations Immunization Date Immunization Notes Care Provider Penelope chanel 08-05-2024 [facility] No Primary Care Physician [facility] Payers Date Payer Category Payer Self-pay 2021 Medicare [id number] 2009 Unknown [id number] Unknown [id number] 2.16.8 40.1.120766.3.579.2.462 Unknown [id number] 2.16.8 40.1.578067.3.579.2.462 Unknown [id number] 2.16.8 40.1.425602.3.579.2.462 Unknown [id number] 2.16.8 40.1.989326.3.579.2.462 Unknown [id number] 2.16.8 40.1.989771.3.579.2.462 Unknown [id number] 2.16.8 40.1.534708.3.579.2.462 Unknown [id number] 2.16.8 40.1.849696.3.579.2.462 Unknown [id number] 2.16.8 40.1.317793.3.579.2.462 Unknown [id number] 2.16.8 40.1.765240.3.579.2.462 Unknown [id number] 2.16.8 40.1.812635.3.579.2.462 Unknown [id number] 2.16.8 40.1.443893.3.579.2.462 Unknown [id number] 2.16.8 40.1.384941.3.579.2.462 Unknown [id number] 2.16.8 40.1.934319.3.579.2.462 Unknown [id number] 2.16.8 40.1.641666.3.579.2.462 Unknown [id number] 2.16.8 40.1.929913.3.579.2.462 Unknown [id number] 2.16.8 40.1.778416.3.579.2.462 Unknown [id number] 2.16.8 40.1.286480.3.579.2.462 Unknown [id number] 2.16.8 40.1.390954.3.579.2.462 Unknown [id number] 2.16.8 40.1.850374.3.579.2.462 Unknown [id number] 2.16.8 40.1.703289.3.579.2.462 Unknown [id number] 2.16.8 40.1.537462.3.579.2.462 Unknown [id number] 2.16.8 40.1.740010.3.579.2.462 Unknown [id number] 2.16.8 40.1.800066.3.579.2.462 Unknown [id number] 2.16.8 40.1.185297.3.579.2.462 Unknown [id number] 2.16.8 40.1.293033.3.579.2.462 Unknown [id number] 2.16.8 40.1.238760.3.579.2.462 Unknown [id number] 2.16.8 40.1.538467.3.579.2.462 Unknown [id number] 2.16.8 40.1.493318.3.579.2.462 Unknown [id number] 2.16.8 40.1.265095.3.579.2.462 Unknown [id number] 2.16.8 40.1.378644.3.579.2.462 Unknown [id number] 2.16.8 40.1.427084.3.579.2.462 Unknown [id number] 2.16.8 40.1.216519.3.579.2.462 Social History Date Type Detail Facility Start: 04-28-2024 End: 10-06-2024 Tobacco smoking status NHIS Never smoked tobacco (finding) [facility] Start: 05-20-2024 End: 05-21-2024 Sex Female (finding) [facility] Start: 1955 Sex Assigned At Female [facility] Not [facility] NEGATED: Highlighted row Not [facility] Goals Date Patient Goal Desired Activity /State Mental Status Date Assessment Result Facility 07-02-2024 Cognitive function Voice/Name [facility] Work Phone: Clinical Notes 04-27-2024 to 07-02-2024 Note Date & Type Note Facility 07-02-2024 Consult note Note Date/Time July 02, 2024 8:13am [facility] Medical Records Department [address] [place] [address] Anesthesia Postop Eval II 07/02/24811 MR#: [id number] Acct: [id number] Name: VICENTE CASTELLANOS Rep #:[id number] : 1955 68 From: Dmitriy Bowen MD PCP: Care Physician,No Primary Status :REG SDC Y Race: C Location: [place] [address] Anesthesia Postop Eval I Sum Postop Eval Completion status Anesthesia document: Postop Eval 1 completed: Yes Anesthesia Postop Eval I Summary Anesthesia Postop Eval I Summary: Anesthesia Postop Eval I: Assessment Summary Airway patent Yes 07/02/24 07:38 [email or web address] Spontaneous unlabored Yes 07/02/24 07:38 [email or web address] respirations Mental status Awake 07/02/24 07:38 [email or web address] nausea No 07/02/24 07:38 [email or web address] Vomiting No 07/02/24 07:38 [email or web address] Anesthesia Postop Eval I: Fluid Summary Crystalloid volume administer 600 07/02/24 07:38 [email or web address] (ml) Colloids volume administered ( ml) Blood Product volume administered (ml) Total IV fluid infused 600 07/02/24 07:38 [email or web address] Anesthesia Postop Eval I: Summary Notes Anesthesia Complication No 07/02/24 07:38 [email or web address] Anesthesia Complication Comment: Post-operative progress note Anesthesia: Postop Eval II Evaluation Mental status: Awake and Calm Pain Level: 0 nausea: No Vomiting: No Complications Anesthesia Complication: No 07/02/24812 <Electronically signed by Dmitriy martines MD> Date _ Dmitriy Bowen MD Cosignmike Signature: Date CC: ~ Signed [facility] Work Phone: 1(735) 103-950205-08-2025 Consult note Author Bradley Joaquin [facility] Note Date/Time July 02, 2024 7:38[facility] Medical Records Department [address] [place] [address] Anesthesia Postop Eval I 07/02/24736 MR#: [id number] Acct: [id number] Name: VICENTE CASTELLANOS Rep #:[id number] : 1955 68 From: Bradley Joaquin PCP: Care Physician,No Primary Status :REG [facility] Race: C Location: [place] [address] Anesthesia: Postop Eval I Current Vital Signs Temperature: 97 F Pulse Rate: 72 Blood Pressure: 87/50 Respiratory Rate: 16 Pulse Ox: 97 Oxygen Delivery Method: Room Air Assessment Airway patent: Yes Spontaneous unlabored respirations: Yes Mental status: Awake nausea: No Vomiting: No Anesthesia Complication: No Fluid Hydration Crystalloid volume administer (ml): 600 Total IV fluid infused: 600 Progress Note Anesthesia document: Postop Eval 1 completed: Yes 07/02/24737 <Electronically signed by Bradley Joaquin > Date _ Bradley Diane Signature: Date CC: ~ Signed [facility] Work Phone: 1(853) 210-864205-08-2025 History and physical note Author Williams Friend [facility] Note Date/Time July 02, 2024 6:49am [facility] Medical Records Department [address] [place] [address] History & Physical Exam 07/02/24 0648 MR#: [id number] Acct: [id number] Name: VICENTE CASTELLANOS Rep #:[id number] : 1955 68 From: Williams Madison DO PCP: Care Physician,No Primary Status :[facility] Location: [place] [address] HPI - General General Date of Admission: 07/02/24 Date of Service: 07/02/24 Chief Complaint: dysphagia and personal h/o polyps HPI Narrative VICENTE CASTELLANOS, is a 68 F who present with sChief Complaint: personal h/o colon polyps and dysphagia COLON 04/09/2019 severe diverticulosis, internal hemorrhoids - recall colon 5 years - mother with colon CA - personal h/o colon polyps - denies any bleeding - she reports having terrible trouble with hemorrhoids - pain and irritation - sitz baths daily for the past week - prior to this she was seeing blood on toilet tissue 0 but states this was not coming from the hemorrhoids - causing genital irritation - she states she saw a DOMESTIC TECHNICIAN a year ago who recommended she stop using creams and supp and wanted her to come back in 2 weeks for biopsy - she reports she never followed up - causing terrible irritation and itching - she feels external hemorrhoids - denies any vaginal bleeding - she is on Coumadin - 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 Adams tomorrow - just moved here form [place] - daughter works in ED here at [facility] - stools are balls - has not been drinking as much water as she normally does - has not been taking gruns with bran muffins she was previously eating - had two 9lb babies - she reports she does not always have sensation with evacuation, decreased urge - she has been off Nexium since November 2023 - c/o dysphagia high in the esophagus - these episodes were not present when on Nexium - HB is manageable - denies any N/V - denies any weight loss PFSH Medical History Post-menopausal Wears glasses Alcohol use History of steroid therapy High cholesterol Back pain History of diverticulitis Gastric reflux Non-smoker History of edema History of echocardiogram Cardiology follow-up encounter intermediate (current) use of anticoagulants Hypertension History of transcatheter aortic valve replacement (TAVR) Hyperlipidemia Anemia Ascending aorta dilatation Arthritis DVT (deep venous thrombosis) Factor II deficiency Home Medications ?Medication ?Instructions ?Recorded ?Last Taken ?Type aspirin 81 mg tablet,delayed 81 mg PO QDAY 03/31/24 History release (Adult Aspirin Regimen) clobetasol 0.05 % topical cream 1 applic topical BID P RN ECZEMA 03/31/24 Unknown History warfarin 4 mg tablet 4 mg PO QDAY 03/31/24 History warfarin 5 mg tablet 5 mg PO QDAY 03/31/24 History atorvastatin 40 mg tablet 40 mg PO QDAY 04/27/2407/01 History cholecalciferol (vitamin D3) 250 250 mcg PO QDAY 04/2707/01/24 History mcg (10,000 unit) capsule esomeprazole magnesium 40 mg 40 mg PO QDAY #90 caps 07/01/24 Rx capsule,delayed release gruns daily comprehensive nutrition 1 ea PO DAILY 05/1906/30/24 History hydrocortisone 2.5 % topical cream 1 applic DE QD-BID PRN hemorrhoids 04/27/24 Unknown Rx with perineal applicator #30 grams (Anusol-HC) ondansetron HCl 4 mg tablet 4 mg PO .COMPLEX #5 tabs 0 04/27/24 07/01/24 Rx peg 3350-sod sulf,[id number]-yxs-zph See Rx Instructions PO .COMPLEX #2 04/27/24 07/02/24 Rx 178.7-7.3-0.5-1.12-0.9 gram oral mL soln (Suflave) thiamine HCl (vitamin B1) 50 mg 50 mg PO QDAY 04/27/24 07/01/24 History tablet amoxicillin 500 mg capsule 500 mg PO ONCE #4 caps 08/1907/02/24 05:30 Rx Allergy/AdvReac Type Severity Reaction Status Date / Time latex Allergy Intermediate Itching Verified 07/02/24 05:54 Family History Mother No problems noted. Father No problems noted. Surgical History History of discectomy History of cholecystectomy Social History Smoking Status: Never smoker alcohol intake: current substance use type: does not use caffeine: Yes ROS Constitutional Constitutional: Denies fatigue, fever(s), poor appetite, weight gain or weight loss Gastrointestinal Gastrointestinal: Denies belching, bloating, change in bowel habits, change in stool character, chewing difficulty, coffee ground emesis, constipation, cramping, diarrhea, dyspepsia, dysphagia, early satiety, excessive flatus, fecalincontinence, heartburn, hematemesis, hematochezia, hemorrhoids, loose stools, melena, nausea, odynophagia, rectal bleeding, tenesmus, vomiting or weight changes Vital Signs Vital Signs Vital Signs: 07/02/24 05:56 07/02/24 05:58 07/02/24 06:31 Temperature 96.7 F L 96.7 F L Temperature Source Temporal Pulse Rate 85 85 Respiratory Rate 16 16 Respiratory Pattern Normal Blood Pressure 122/54 H 122/54 H Blood Pressure Mean 76 Blood Pressure Source Monitor Blood Pressure Position Semi-Fowlers Blood Pressure Location Left Arm Pulse Ox 95 95 Oxygen Delivery Method Room Air Room Air Weight Weight: 195 lb 3.2 oz Body Mass Index (BMI) 31.5 Physical Exam Const alert, oriented x3, no apparent distress and healthy appearing General Appearance: cooperative GI normal to inspection, nondistended, normoactive bowel sounds, soft to palpation,non-tender and non-distended Percussion: normal to percussion Rectal Exam: deferred Assessment & Plan Assessment/Plan (1) Dysphagia: (2) Constipation: (3) Family history of colon cancer in mother: (4) Personal history of colonic polyps: PLAN: Assessment and Plan Assessment and Plan (1) Personal history of colonic polyps: Status: Acute (2) Family history of colon cancer in mother: Status: Acute (3) Constipation: Status: Acute (4) Dysphagia: Status: Acute Orders: Orders Esophagus Dual Contrast Today R13.10 - Dysphagia, unspecified Referrals Gastroenterology K59.00 - Constipation, unspecified Medications: New hydrocortisone 2.5% (Anusol-HC) 1 applic DE QD-BID PRN 30 grams 0RF hemorrhoids peg 3350-sod sulf,txkc-fei-lgu 178.7-7.3-0.5 gram (Suflave) take as directed forsplit dose bowel prep 2 mL 0RF ondansetron HCl 4 mg orally; two tablets PO two hours prior to start of bowel prep and one every 4 hours as needed for N/V 5 tabs 0RF esomeprazole magnesium take 30 minutes before breakfast every morning 40 mg PO QDAY 90 caps 1RF Plan 68y/o female presents for consultation with a personal history of colon polyps. Labs completed 11/27/2023 reveal HGB 10.6, normal CRP. Her family history is significant for mother with colon cancer. She complains of rectal/vaginal irritation secondary to fecal leakage secondary to hemorrhoids. She complains ofdifficulty with fecal evacuation and decreased sensation to have a BM. We have discussed the importance of avoiding straining with BM as well as high fiber diet with increased water intake. Lastly, she complains of upper esophageal dysphagia since discontinuing PPI. I have recommended she resume PPI and schedule Esophagram and EGD. Patient Instructions: Colonoscopy with hemorrhoid banding - Suflave EGD Esophagram with tablet - complete prior to EGD Will require approval to hold Coumadin prior to procedure Anorectal Manometry - schedule at [place] [facility] Continue Sitz Bath Anusol RX sent to local pharmacy Avoid straining with bowel movements Flip Winkler 07/02/24 0649 <Electronically signed by Williams Madison DO> Cosigner Signature (if applicable): CC: No Primary Care Physician; Williams Madison DO~ Signed [facility] Work Phone: 1(465) 907-513905-08-2025 Consult note Author [facility]y [facility] Note Date/Time July 02, 2024 6:31am [facility] Medical Records Department [address] [place] [address] Pre-Anesthesia Evaluation 07/02/2423 MR#: [id number] Acct: [id number] Name: VICENTE CASTELLANOS Rep #:[id number] : 1955 68 From: Dmitriy Bowen MD PCP: Care Physician,No Primary Status :REG SDC Y Race: C Location: [place] [address] ASA Classification* ASA Classification ASA Classification: 3 Assessment & Plan Anesthesia* Anesthesia Assessment Anesthesia Assessment: Discussed sedation and/or anesthesia options, risks, benefits, and alternatives with patient/parents/legal guardian/POA. Questions invited. The patient/parents/legal guardian/POA seems to understand and agrees to proceedwith anesthesia plan. Reviewed the physical assessment, medical history, allergy history and patient home medications list prior to surgery/procedure/anesthetic and documented any changes. Performed airway and anesthesia risk assessments. Anesthesia Type Anesthesia Type: MAC History Source History Obtained from:: Patient and Chart Anesthesia Focused Assessment* Temperature: 96.7 F Pulse Rate: 85 Blood Pressure: 122/54 Respiratory Rate: 16 Pulse Ox: 95 Oxygen Delivery Method: Room Air Airway Assessment Mouth opens: >3 cm Mallampati Score: IV Teeth Condition: Caps/Crowns (Patient has several crowns. They are all tight.) Neck Range of motion (ROM): Full ROM Focused Labs Anesthesia Preop lab: CBC WBC 5.4 K/mm3 (4.4-11.0) 11/27/23 13:00 11/27/23 RBC 3.39 M/mm3 (4.2-5.4) L 11/27/23 13:00 11/27/23 Hgb 10.6 g/dL (12.0-15.0) L 11/27/23 13:00 4 Hct 33.7 % (37-47) L 11/27/23 13:00 11/27/23 Plt Count 273 K/mm3 (150-450) 11/27/23 13:00 11/27/23 CHEMISTRY Potassium 4.3 mmol/L (3.5-5.1) 11/27/23 13:00 11/27/23 Sodium 140 mmol/L (136-145) 11/27/23 13:00 11/27/23 BUN 14 mg/dL (7-18) 11/27/23 13:00 11/27/23 Creatinine 0.83 mg/dL (0.55-1.02) 11/27/23 13:00 11/27/23 Glucose 109 mg/dL (74-106) H 11/27/23 13:00 11/27/23 COAG INR 2.1 06/30/24 09:11 06/30/24 Pre-Assessment Diagnosis/Proposed Procedure Planned Operative Procedure(s): EGD, COLONOSCOPY Anesthesia History Anesthesia History - glass or mirror inspector: Anesthesia History - glass or mirror inspector Hx Hospitalization No 06/30/24 16:03 Any Problems With Anesthesia No 06/30/24 16:03 Cholinesterase deficiency No 06/30/24 16:03 You/Your Family Experience No 06/30/24 16:03 fever (hyperthermia) with Relationship Recent Exposure to Contagious No 07/02/24 05:56 Disease Does patient have nerve No 06/30/24 16:03 stimulator Patient instructed to have device shut off --Does patient have Pacemaker No 07/02/24 05:58 or ICD? When Was Last Pacemaker Check QUESTION #4 FULL TEXT: You/Your Family Experience fever (hyperthermia) with Anesthesia Last Oral Intake Last Oral intake: Last Oral Intake NPO since 02:00 07/02/24 05:58 Meds taken in AM with sips of Yes 07/02/24 05:58 water? Meds patient instructed to take am of surgery Any additional information?: Yes NPO since: 02:00 (Patient finished prep at 2 AM.) Meds taken in AM with sips of water?: Yes Meds patient instructed to take am of surgery: Amoxicillin prophylaxis. PONV PONV - glass or mirror inspector: PONV - glass or mirror inspector Female Yes 06/30/24 16:03 HX of Motion Sickness No 06/30/24 16:03 HX of N/V After Surgery No 06/30/24 16:03 Non-Smoker Yes 06/30/24 16:03 Duration of Surgery greater No 06/30/24 16:03 than 60 minutes Number of Risk Factors 2 06/30/24 16:03 PONV Score Moderate Risk 05/06/25 16:03 Height & Weight Height & Weight: Anesthesia: Height & Weight Height 5 ft 6 in 07/02/24 05:58 Weight: 88.541 kg 07/02/24 05:58 Body Mass Index (BMI) 31.5 07/02/24 05:58 Respiratory Assessment Respiratory Assessment - glass or mirror inspector: Respiratory Tract Infection Hx - glass or mirror inspector Hx Respiratory Tract Infection No 06/30/24 16:03 STOP Sleep Apnea STOP Sleep Apnea - glass or mirror inspector: STOP Sleep Apnea - glass or mirror inspector Hx Hypertension No 06/30/24 16:03 Hx Sleep Apnea No 06/30/24 16:03 CPAP BIPAP Do you snore loudly (louder No 06/30/24 16:03 than talking or can be heard Do you often feel tired/ No 06/30/24 16:03 fatigued/ sleepy during daytime? Has anyone observed you stop No 06/30/24 16:03 breathing during sleep? STOP Results Negative 06/30/24 16:03 QUESTION #5 FULL TEXT : Do you snore loudly (louder than talking or can be heard through closed doors)? 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 Specify any problems Hx of Preganancy in last 3 No 06/30/24 16:03 Months Nurse Filling Out Transfusion VLEHMAN 06/30/24 16:03 & Questions: Date: 06/30/24 06/30/24 16:03 Time: 16:06/30/24 16:03 Patient unable to answer at this time (ie. confused, unrespo /Reproduction History /Reproductive History - glass or mirror inspector: /Reproductive Hx- glass or mirror inspector Hx Now No 06/30/24 16:03 Gestational Age (in weeks): EDC: Hx Hx Para Hx Section SAB Active Medications Active Medications: Current Medications Generic Name Dose Route Start Last Admin Trade Name Freq PRN Reason Stop Dose Admin Lactated Ringer's 1,000 mls @ 15 mls/hr 07/02/24 05:45 07/02/24 06:16 IV 15 mls/hr .Q48H KRYSTLE Administration PFSH Medical History Post-menopausal Wears glasses Alcohol use History of steroid therapy High cholesterol Back pain History of diverticulitis Gastric reflux Non-smoker History of edema History of echocardiogram Cardiology follow-up encounter intermediate (current) use of anticoagulants Hypertension History of transcatheter aortic valve replacement (TAVR) Hyperlipidemia Anemia Ascending aorta dilatation Arthritis DVT (deep venous thrombosis) Factor II deficiency Home Medications ?Medication ?Instructions ?Recorded ?Last Taken ?Type aspirin 81 mg tablet,delayed 81 mg PO QDAY 03/31/24 History release (Adult Aspirin Regimen) clobetasol 0.05 % topical cream 1 applic topical BID P RN ECZEMA 03/31/24 Unknown History warfarin 4 mg tablet 4 mg PO QDAY 03/31/24 History warfarin 5 mg tablet 5 mg PO QDAY 03/31/24 History atorvastatin 40 mg tablet 40 mg PO QDAY 04/27/2407/01 History cholecalciferol (vitamin D3) 250 250 mcg PO QDAY 04/2707/01/24 History mcg (10,000 unit) capsule esomeprazole magnesium 40 mg 40 mg PO QDAY #90 caps 07/01/24 Rx capsule,delayed release gruns daily comprehensive nutrition 1 ea PO DAILY 05/1906/30/24 History hydrocortisone 2.5 % topical cream 1 applic DE QD-BID PRN hemorrhoids 04/27/24 Unknown Rx with perineal applicator #30 grams (Anusol-HC) ondansetron HCl 4 mg tablet 4 mg PO .COMPLEX #5 tabs 0 04/27/24 07/01/24 Rx peg 3350-sod sulf,qfihj-wvy-vxm See Rx Instructions PO .COMPLEX #2 04/27/24 07/02/24 Rx 178.7-7.3-0.5-1.12-0.9 gram oral mL soln (Suflave) thiamine HCl (vitamin B1) 50 mg 50 mg PO QDAY 04/27/24 07/01/24 History tablet amoxicillin 500 mg capsule 500 mg PO ONCE #4 caps 08/1907/02/24 05:30 Rx Allergy/AdvReac Type Severity Reaction Status Date / Time latex Allergy Intermediate Itching Verified 07/02/24 05:54 Family History Mother No problems noted. Father No problems noted. Surgical History (Reviewed 07/02/24 @ 06: by Dr. Dmitriy Bowen MD) History of discectomy History of cholecystectomy Social History Smoking Status: Never smoker alcohol intake: current substance use type: does not use caffeine: Yes Review of Systems (Anesthesia) ROS Narrative System reviewed and no additional complaints, except as documented. 07/02/24630 <Electronically signed by Dmitriy martines MD> Date _ Dmitriy Bowen MD Cosigner Signature: Date CC: ~ Signed [facility] Work Phone: 1(677) 999-112005-08-2025 Consult note [facility] Medical Records Department [address] [place] [address] Anesthesia Postop Eval II 07/02/2412 MR#: [id number] Acct: [id number] Name: VICENTE CASTELLANOS Rep #:[id number] : 1955 68 From: Dmitriy Bowen MD PCP: Care Physician,No Primary Status :REG SDC Y Race: C Location: [place] [address]-1 Anesthesia Postop Eval I Sum Postop Eval Completion status Anesthesia document: Postop Eval 1 completed: Yes Anesthesia Postop Eval I Summary Anesthesia Postop Eval I Summary: Anesthesia Postop Eval I: Assessment Summary Airway patent Yes 07/02/24 07:38 [email or web address] Spontaneous unlabored Yes 07/02/24 07:38 [email or web address] respirations Mental status Awake 07/02/24 07:38 [email or web address] nausea No 07/02/24 07:38 [email or web address] Vomiting No 07/02/24 07:38 [email or web address] Anesthesia Postop Eval I: Fluid Summary Crystalloid volume administer 600 07/02/24 07:38 [email or web address] (ml) Colloids volume administered ( ml) Blood Product volume administered (ml) Total IV fluid infused 600 07/02/24 07:38 [email or web address] Anesthesia Postop Eval I: Summary Notes Anesthesia Complication No 07/02/24 07:38 [email or web address] Anesthesia Complication Comment: Post-operative progress note Anesthesia: Postop Eval II Evaluation Mental status: Awake and Calm Pain Level: 0 nausea: No Vomiting: No Complications Anesthesia Complication: No 07/02/24812 conrad HOFF> Date _ Dmitriy Bowen MD Cosigner Signature: Date CC: ~ Signed [facility]05-08-2025 Procedure note [facility] Medical Records Department [address] [place] [address] Colonoscopy Report MR#: [id number] Acct: [id number] Name: VICENTE CASTELLANOS Rep #:[id number] : 1955 68 From: Williams Madison DO PCP: Care Physician,No Primary Status :[facility] Patient Name: Vicente Castellanos Procedure Date: 07/02/2024 7:06 AM Date of : 1955 Age: 68 Procedure: Colonoscopy Indications: High risk colon cancer surveillance: Personal history of colonic polyps Providers: Williams Madison DO Referring MD: No Primary Care Physician Medicines: Monitored Anesthesia Care Patient Profile: This is a 68 year old female. Refer to note in patient chart for documentation of history and physical. Patient has symptoms of acute dysphagia. Last Colonoscopy: 5 years ago. Complications: No immediate complications. Procedure: Pre-Anesthesia Assessment: - Prior to the procedure, a History and Physical was performed, and patient medications and allergies were reviewed. The patient is competent. The risks and benefits of the procedure and the sedation options and risks were discussed with the patient. All questions were answered and informed consent was obtained. Patient identification and proposed procedure were verified by the physician. Mental Status Examination: alert and oriented. Airway Examination: normal oropharyngeal airway and neck mobility. Respiratory Examination: clear to auscultation. CV Examination: normal. Prophylactic Antibiotics: The patient does not require prophylactic antibiotics. Prior Anticoagulants: The patient has taken no anticoagulant or antiplatelet agents except for NSAID medication. ASA Grade Assessment: II - A patient with mild systemic disease. After reviewing the risks and benefits, the patient was deemed in satisfactory condition to undergo the procedure. The anesthesia plan was to use monitored anesthesia care (MAC). Immediately prior to administration of medications, the patient was re-assessed for adequacy to receive sedatives. The heart rate, respiratory rate, oxygen saturations, blood pressure, adequacy of pulmonary ventilation, and response to care were monitored throughout the procedure. The physical status of the patient was re-assessed after the procedure. After I obtained informed consent, the scope was passed under direct vision. Throughout the procedure, the patient's blood pressure, pulse, and oxygen saturations were monitored continuously. The Colonoscope was introduced through the anus and advanced to the cecum, identified by appendiceal orifice and ileocecal valve. The colonoscopy was performed without difficulty. The patient tolerated the procedure well. The quality of the bowel preparation was excellent. The ileocecal valve, appendiceal orifice, and rectum were photographed. Scope In: 7:08:13 AM Scope Withdrawal Time 0 hours 13 minutes 22 seconds Scope Out: 7:27:32 AM Total Procedure Duration Time 0 hours 19 minutes 19 seconds Findings: The perianal and digital rectal examinations were normal. Multiple small and large-mouthed diverticula were found in the recto-sigmoid colon, sigmoid colon and descending colon. A 10 mm polyp was found in the ileocecal valve. The polyp was sessile. The polyp was removed with a jumbo cold forceps. Resection and retrieval were complete. Verification of patient identification for the specimen was done. Estimated blood loss was minimal. Stool was found at the hepatic flexure and in the cecum. Impression: - Diverticulosis in the recto-sigmoid colon, in the sigmoid colon and in the descending colon. - One 10 mm polyp at the ileocecal valve, removed with a jumbo cold forceps. Resected and retrieved. - Stool at the hepatic flexure and in the cecum. Recommendation: - Discharge patient to home. - Resume previous diet. - Continue present medications. - Await pathology results. - Repeat colonoscopy in 5 years for surveillance. Procedure Code(s): --- Professional --- 06417, Colonoscopy, flexible; with biopsy, single or multiple CPT copyright 2021 [employer]. All rights reserved. The codes documented in this report are preliminary and upon lock and dam operator review may be revised to meet current compliance requirements. Williams Madison DO 07/02/2024 7:41:42 AM This report has been signed electronically. Number of Addenda: 0 Note Initiated On: 07/02/2024 7:06 AM 07/02/24740 Date _ Williams Madison DO Cosigner Signature: Date (if indicated) CC: No Primary Care Physician; Williams Madison DO ~ Date Dictated: 07/02/24705 Date Transcribed: Adult Basic Education Manager: DAO Signed [facility]05-08-2025 Procedure note [facility] Medical Records Department [address] [place] [address] Operative Report - CC Letter MR#: [id number] Acct: [id number] Name: VICENTE CASTELLANOS Rep #:[id number] : 1955 68 From: Williams Madison DO PCP: Care Physician,No Primary Status :REG SDC 07/02/2024 No Primary Care Physician Re : Colonoscopy procedure for Vicente Castellanos Dear Care Physician This procedure was performed on June. My impressions and recommendations are as follows: Impressions : - Diverticulosis in the recto-sigmoid colon, in the sigmoid colon and in the descending colon. - One 10 mm polyp at the ileocecal valve, removed with a jumbo cold forceps. Resected and retrieved. - Stool at the hepatic flexure and in the cecum. Recommendations : - Discharge patient to home. - Resume previous diet. - Continue present medications. - Await pathology results. - Repeat colonoscopy in 5 years for surveillance. My findings are described in the full procedure note, which is enclosed. If I can be of further assistance, please feel free to contact me at . Sincerely, Williams Madison DO 07/02/2024 7:41:42 AM This report has been signed electronically. 07/02/24740 Date _ Williams Cheemaignmike Signature: Date (if indicated) CC: No Primary Care Physician; Williams Madison DO ~ Date Dictated: 07/02/24705 Date Transcribed: Adult Basic Education Manager: RF Signed [facility]05-08-2025 Consult note [facility] Medical Records Department [address] [place] [address] Anesthesia Postop Eval I 07/02/24736 MR#: [id number] Acct: [id number] Name: VICENTE CASTELLANOS Rep #:[id number] : 1955 68 From: Bradley Joaquin PCP: Care Physician,No Primary Status :REG SDC Y Race: C Location: [place] [address] Anesthesia: Postop Eval I Current Vital Signs Temperature: 97 F Pulse Rate: 72 Blood Pressure: 87/50 Respiratory Rate: 16 Pulse Ox: 97 Oxygen Delivery Method: Room Air Assessment Airway patent: Yes Spontaneous unlabored respirations: Yes Mental status: Awake nausea: No Vomiting: No Anesthesia Complication: No Fluid Hydration Crystalloid volume administer (ml): 600 Total IV fluid infused: 600 Progress Note Anesthesia document: Postop Eval 1 completed: Yes 07/02/24 0738 > Date _ Bradley Diane Signature: Date CC: ~ Signed [facility]05-08-2025 Procedure note [facility] Medical Records Department [address] [place] [address] EGD Report MR#: [id number] Acct: [id number] Name: VICENTE CASTELLANOS Rep #:[id number] : 1955 68 From: Williams Maidson DO PCP: Care Physician,Alisia Primary Status :[facility] Patient Name: Vicente Castellanos Procedure Date: 07/02/2024 6:17 AM Date of : 1955 Age: 68 Procedure: Upper GI endoscopy Indications: Dysphagia Providers: Williams Madison DO Referring MD: No Primary Care Physician Medicines: Monitored Anesthesia Care Patient Profile: This is a 68 year old female. Refer to note in patient chart for documentation of history and physical. Patient has symptoms of acute dysphagia. Complications: No immediate complications. Procedure: Pre-Anesthesia Assessment: - Prior to the procedure, a History and Physical was performed, and patient medications and allergies were reviewed. The patient is competent. The risks and benefits of the procedure and the sedation options and risks were discussed with the patient. All questions were answered and informed consent was obtained. Patient identification and proposed procedure were verified by the physician. Mental Status Examination: alert and oriented. Airway Examination: normal oropharyngeal airway and neck mobility. Respiratory Examination: clear to auscultation. CV Examination: normal. Prophylactic Antibiotics: The patient does not require prophylactic antibiotics. Prior Anticoagulants: The patient has taken no anticoagulant or antiplatelet agents except for NSAID medication. ASA Grade Assessment: II - A patient with mild systemic disease. After reviewing the risks and benefits, the patient was deemed in satisfactory condition to undergo the procedure. The anesthesia plan was to use monitored anesthesia care (MAC). Immediately prior to administration of medications, the patient was re-assessed for adequacy to receive sedatives. The heart rate, respiratory rate, oxygen saturations, blood pressure, adequacy of pulmonary ventilation, and response to care were monitored throughout the procedure. The physical status of the patient was re-assessed after the procedure. After obtaining informed consent, the endoscope was passed under direct vision. Throughout the procedure, the patient's blood pressure, pulse, and oxygen saturations were monitored continuously. The Colonoscope was introduced through the mouth, and advanced to the second part of duodenum. The upper GI endoscopy was accomplished without difficulty. The patient tolerated the procedure well. Scope In: 7:02:24 AM Scope Out: 7:06:19 AM Total Procedure Duration Time 0 hours 3 minutes 55 seconds Findings: The Z-line was irregular and was found 40 cm from the incisors. Biopsies were taken with a cold forceps for histology. Verification of patient identification for the specimen was done. Estimated blood loss was minimal. A moderate Schatzki ring was found in the lower third of the esophagus. A medium-sized hiatal hernia was present. Diffuse prominent gastric folds were found in the gastric body. No gross lesions were noted in the duodenal bulb. Impression: - Z-line irregular, 40 cm from the incisors. Biopsied. - Moderate Schatzki ring. - Medium-sized hiatal hernia. - Enlarged gastric folds. - No gross lesions in the duodenal bulb. Recommendation: - Discharge patient to home. - Resume previous diet. - Continue present medications. - Await pathology results. Procedure Code(s): --- Professional --- 71440, Esophagogastroduodenoscopy, flexible, transoral; with biopsy, single or multiple CPT copyright 2021 [employer]. All rights reserved. The codes documented in this report are preliminary and upon lock and dam operator review may be revised to meet current compliance requirements. Williams Madison DO 07/02/2024 7:37:27 AM This report has been signed electronically. Number of Addenda: 0 Note Initiated On: 07/02/2024 6:17 AM 07/02/24737 Date _ Williams Cheemaigner Signature: Date (if indicated) CC: No Primary Care Physician; Williams Madison DO ~ Date Dictated: 07/02/24616 Date Transcribed: Adult Basic Education Manager: RF Signed [facility]05-08-2025 Procedure note [facility] Medical Records Department [address] [place] [address] Operative Report - CC Letter MR#: [id number] Acct: [id number] Name: VICENTE CASTELLANOS Rep #:[id number] : 1955 68 From: Williams Madison DO PCP: Care Physician,No [place] No Primary Care Physician Re : Upper GI endoscopy procedure for Vicente Castellanos Dear Care Physician This procedure was performed on June. My impressions and recommendations are as follows: Impressions : - Z-line irregular, 40 cm from the incisors. Biopsied. - Moderate Schatzki ring. - Medium-sized hiatal hernia. - Enlarged gastric folds. - No gross lesions in the duodenal bulb. Recommendations : - Discharge patient to home. - Resume previous diet. - Continue present medications. - Await pathology results. My findings are described in the full procedure note, which is enclosed. If I can be of further assistance, please feel free to contact me at . Sincerely, Williams Madison DO 07/02/2024 7:37:27 AM This report has been signed electronically. 07/02/2438 Date _ Williams Friend DO Mckeonigner Signature: Date (if indicated) CC: No Primary Care Physician; Williams Madison DO ~ Date Dictated: 07/02/24 0617 Date Transcribed: Adult Basic Education Manager: RF Signed [facility]05-08-2025 History and physical note [facility] Medical Records Department [address] [place] [address] History & Physical Exam 07/02/24 0648 MR#: [id number] Acct: [id number] Name: VICENTE CASTELLANOS Rep #:[id number] : 1955 68 From: Williams Madison DO PCP: Care Physician,No Primary Status :[facility] Location: [place] [address] HPI - General General Date of Admission: 07/02/24 Date of Service: 07/02/24 Chief Complaint: dysphagia and personal h/o polyps HPI Narrative VICENTE CASTELLANOS, is a 68 F who present with sChief Complaint: personal h/o colon polyps and dysphagia COLON 04/09/2019 severe diverticulosis, internal hemorrhoids - recall colon 5 years - mother with colon CA - personal h/o colon polyps - denies any bleeding - she reports having terrible trouble with hemorrhoids - pain and irritation - sitz baths daily for the past week - prior to this she was seeing blood on toilet tissue 0 but states this was not coming from the hemorrhoids - causing genital irritation - she states she saw a DOMESTIC TECHNICIAN a year ago who recommended she stop using creams and supp and wanted herto come back in 2 weeks for biopsy - she reports she never followed up - causing terrible irritation and itching - she feels external hemorrhoids - denies any vaginal bleeding - she is on Coumadin - 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 Adams tomorrow - just moved here form [place] - daughter works in ED here at [facility] - stools are balls - has not been drinking as much water as she normally does - has not been taking gruns with bran muffins she was previously eating - had two 9lb babies - she reports she does not always have sensation with evacuation, decreased urge - she has been off Nexium since November 2023 - c/o dysphagia high in the esophagus - these episodes were not present when on Nexium - HB is manageable - denies any N/V - denies any weight loss PFSH Medical History Post-menopausal Wears glasses Alcohol use History of steroid therapy High cholesterol Back pain History of diverticulitis Gastric reflux Non-smoker History of edema History of echocardiogram Cardiology follow-up 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 Hypertension History of transcatheter aortic valve replacement (TAVR) Hyperlipidemia Anemia Ascending aorta dilatation Arthritis DVT (deep venous thrombosis) Factor II deficiency Home Medications ?Medication ?Instructions ?Recorded ?Last Taken ?Type aspirin 81 mg tablet,delayed 81 mg PO QDAY 03/31/24 History release (Adult Aspirin Regimen) clobetasol 0.05 % topical cream 1 applic topical BID P RN ECZEMA 03/31/24 Unknown History warfarin 4 mg tablet 4 mg PO QDAY 03/31/24 History warfarin 5 mg tablet 5 mg PO QDAY 03/31/24 History atorvastatin 40 mg tablet 40 mg PO QDAY 04/27/2407/01 History cholecalciferol (vitamin D3) 250 250 mcg PO QDAY 04/2707/01/24 History mcg (10,000 unit) capsule esomeprazole magnesium 40 mg 40 mg PO QDAY #90 caps 07/01/24 Rx capsule,delayed release gruns daily comprehensive nutrition 1 ea PO DAILY 05/1906/30/24 History hydrocortisone 2.5 % topical cream 1 applic DE QD-BID PRN hemorrhoids 04/27/24 Unknown Rx with perineal applicator #30 grams (Anusol-HC) ondansetron HCl 4 mg tablet 4 mg PO .COMPLEX #5 tabs 0 04/27/24 07/01/24 Rx peg 3350-sod sulf,[id number] See Rx Instructions PO .COMPLEX #2 04/27/24 07/02/24 Rx 178.7-7.3-0.5-1.12-0.9 gram oral mL soln (Suflave) thiamine HCl (vitamin B1) 50 mg 50 mg PO QDAY 04/27/24 07/01/24 History tablet amoxicillin 500 mg capsule 500 mg PO ONCE #4 caps 08/1907/02/24 05:30 Rx Allergy/AdvReac Type Severity Reaction Status Date / Time latex Allergy Intermediate Itching Verified 07/02/24 05:54 Family History Mother No problems noted. Father No problems noted. Surgical History History of discectomy History of cholecystectomy Social History Smoking Status: Never smoker alcohol intake: current substance use type: does not use caffeine: Yes ROS Constitutional Constitutional: Denies fatigue, fever(s), poor appetite, weight gain or weight loss Gastrointestinal Gastrointestinal: Denies belching, bloating, change in bowel habits, change in stool character, chewing difficulty, coffee ground emesis, constipation, cramping, diarrhea, dyspepsia, dysphagia, earlysatiety, excessive flatus, fecalincontinence, heartburn, hematemesis, hematochezia, hemorrhoids, loose stools, melena, nausea, odynophagia, rectal bleeding, tenesmus, vomiting or weight changes Vital Signs Vital Signs Vital Signs: 07/02/24 05:56 07/02/24 05:58 07/02/24 06:31 Temperature 96.7 F L 96.7 F L Temperature Source Temporal Pulse Rate 85 85 Respiratory Rate 16 16 Respiratory Pattern Normal Blood Pressure 122/54 H 122/54 H Blood Pressure Mean 76 Blood Pressure Source Monitor Blood Pressure Position Semi-Fowlers Blood Pressure Location Left Arm Pulse Ox 95 95 Oxygen Delivery Method Room Air Room Air Weight Weight: 195 lb 3.2 oz Body Mass Index (BMI) 31.5 Physical Exam Const alert, oriented x3, no apparent distress and healthy appearing General Appearance: cooperative GI normal to inspection, nondistended, normoactive bowel sounds, soft to palpation,non-tender and non-distended Percussion: normal to percussion Rectal Exam: deferred Assessment & Plan Assessment/Plan (1) Dysphagia: (2) Constipation: (3) Family history of colon cancer in mother: (4) Personal history of colonic polyps: PLAN: Assessment and Plan Assessment and Plan (1) Personal history of colonic polyps: Status: Acute (2) Family history of colon cancer in mother: Status: Acute (3) Constipation: Status: Acute (4) Dysphagia: Status: Acute Orders: Orders Esophagus Dual Contrast Today R13.10 - Dysphagia, unspecified Referrals Gastroenterology K59.00 - Constipation, unspecified Medications: New hydrocortisone 2.5% (Anusol-HC) 1 applic DE QD-BID PRN 30 grams 0RF hemorrhoids peg 3350-sod sulf,[id number]-[id number]-[id number] 178.7-7.3-0.5 gram (Suflave) take as directed forsplit dose bowel prep 2 mL 0RF ondansetron HCl 4 mg orally; two tablets PO two hours prior to start of bowel prep and one every 4 hours as needed for N/V 5 tabs 0RF esomeprazole magnesium take 30 minutes before breakfast every morning 40 mg PO QDAY 90 caps 1RF Plan 68y/o female presents for consultation with a personal history of colon polyps. Labs completed 11/27/2023 reveal HGB 10.6, normal CRP. Her family history is significant for mother with colon cancer. She complains of rectal/vaginal irritation secondary to fecal leakage secondary to hemorrhoids. She complains ofdifficulty with fecal evacuation and decreased sensation to have a BM. We have discussed the importance of avoiding straining with BM as well as high fiber diet with increased water intake.Lastly, she complains of upper esophageal dysphagia since discontinuing PPI. I have recommended sheresume PPI and schedule Esophagram and EGD. Patient Instructions: Colonoscopy with hemorrhoid banding - Suflave EGD Esophagram with tablet - complete prior to EGD Will require approval to hold Coumadin prior to procedure Anorectal Manometry - schedule at [facility] Continue Sitz Bath Anusol RX sent to local pharmacy Avoid straining with bowel movements Squlydiay Potty 07/02/24 0643 Cosigner Signature (if applicable): CC: No Primary Care Physician; Williams Friend, DO~ Signed [facility]05-08-2025 [facility] Medical Records Department [address] [place] [address] History Physical Exam 07/02/24 0648 MR#: [id number] Acct: [id number] Name: VICENTE CASTELLANOS Rep #: [id number] : 1955 68 From: Williams Madison DO PCP: Care Physician,No [place] [address] HPI - General General Date of Admission: 07/02/24 Date of Service: 07/02/24 Chief Complaint: dysphagia and personal h/o polyps HPI Narrative VICENTE CASTELLANOS, is a 68 F who present with sChief Complaint: personal h/o colon polyps and dysphagia COLON 04/09/2019 severe diverticulosis, internal hemorrhoids - recall colon 5 years - mother with colon CA - personal h/o colon polyps - denies any bleeding - she reports having terrible trouble with hemorrhoids - pain and irritation - sitz baths daily for the past week - prior to this she was seeing blood on toilet tissue 0 but states this was not coming from the hemorrhoids - causing genital irritation - she states she saw a DOMESTIC TECHNICIAN a year ago who recommended she stop using creams and supp and wanted her to come back in 2 weeks for biopsy - she reports she never followed up - causing terrible irritation and itching - she feels external hemorrhoids - denies any vaginal bleeding - she is on Coumadin - 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 Adams tomorrow - just moved here form [place] - daughter works in ED here at [employer] [facility] - stools are balls - has not been drinking as much water as she normally does - has not been taking gruns with bran muffins she was previously eating - had two 9lb babies - she reports she does not always have sensation with evacuation, decreased urge - she has been off Nexium since November 2023 - c/o dysphagia high in the esophagus - these episodes were not present when on Nexium - HB is manageable - denies any N/V - denies any weight loss [facility] Medical History Post-menopausal Wears glasses Alcohol use History of steroid therapy High cholesterol Back pain History of diverticulitis Gastric reflux Non-smoker History of edema History of echocardiogram Cardiology follow-up encounter intermediate (current) use of anticoagulants Hypertension History of transcatheter aortic valve replacement (TAVR) Hyperlipidemia Anemia Ascending aorta dilatation Arthritis DVT (deep venous thrombosis) Factor II deficiency Home Medications ???Medication ???Instructions ???Recorded ???Last Taken ???Type aspirin 81 mg tablet,delayed 81 mg PO QDAY 03/31/24 07/01/24 Hi story release (Adult Aspirin Regimen) clobetasol 0.05 % topical cream 1 applic topical BID PRN ECZEMA Unknown History warfarin 4 mg tablet 4 mg PO QDAY 03/31/24 06/28/24 His tory warfarin 5 mg tablet 5 mg PO QDAY 03/31/24 06/28/24 His tory atorvastatin 40 mg tablet 40 mg PO QDAY 04/27/24 07/01/24 Hi story cholecalciferol (vitamin D3) 250 250 mcg PO QDAY 04/27/24 07/01/24 History mcg (10,000 unit) capsule esomeprazole magnesium 40 mg 40 mg PO QDAY #90 caps 04/27/24 Rx capsule,delayed release gruns daily comprehensive nutrition 1 ea PO DAILY 04/27/24 06/30/24 History hydrocortisone 2.5 % topical cream 1 applic DE QD-BID PRN hemorrhoi ds 04/27/24 Unknown Rx with perineal applicator #30 grams (Anusol-HC) ondansetron HCl 4 mg tablet 4 mg PO .COMPLEX #5 tabs 04/27/24 07/01/24 Rx peg 3350-sod sulf,[id number]-nny-nej See Rx Instructions PO .COMPLEX #2 04/27/24 07/02/24 Rx 178.7-7.3-0.5-1.12-0.9 gram oral mL soln (Suflave) thiamine HCl (vitamin B1) 50 mg 50 mg PO QDAY 04/27/24 07/01/24 Hi story tablet amoxicillin 500 mg capsule 500 mg PO ONCE #4 caps 06/30/24 05:30 Rx Allergy/AdvReac Type Severity Reaction Status Date / Time latex Allergy Intermediate Itching Verified 07/02/24 05:54 Family History Mother No problems noted. Father No problems noted. Surgical History History of discectomy History of cholecystectomy Social History Smoking Status: Never smoker alcohol intake: current substance use type: does not use caffeine: Yes ROS Constitutional Constitutional: Denies fatigue, fever(s), poor appetite, weight gain or weight loss Gastrointestinal Gastrointestinal: Denies belching, bloating, change in bowel habits, change in stool character, chewing difficulty, coffee ground emesis, constipation, cramping, diarrhea, dyspepsia, dysphagia, early satiety, excessive flatus, fecal incontinence, heartburn, hematemesis, hematochezia, h (more content not included)...[facility]05-08-2025 Consult note [facility] Medical Records Department [address] [place] [address] Pre-Anesthesia Evaluation 07/02/24622 MR#: [id number] Acct: [id number] Name: VICENTE CASTELLANOS Rep #:[id number] : 1955 68 From: Dmitriy Bowen MD PCP: Care Physician,No Primary Status :[facility] Y Race: C Location: [place] [address] ASA Classification* ASA Classification ASA Classification: 3 Assessment & Plan Anesthesia* Anesthesia Assessment Anesthesia Assessment: Discussed sedation and/or anesthesia options, risks, benefits, and alternatives with patient/parents/legal guardian/POA. Questions invited. The patient/parents/legal guardian/POA seems to understand and agrees to proceedwith anesthesia plan. Reviewed the physical assessment, medical history, allergy history and patient home medications list prior to surgery/procedure/anesthetic and documented any changes. Performed airway and anesthesia risk assessments. Anesthesia Type Anesthesia Type: MAC History Source History Obtained from:: Patient and Chart Anesthesia Focused Assessment* Temperature: 96.7 F Pulse Rate: 85 Blood Pressure: 122/54 Respiratory Rate: 16 Pulse Ox: 95 Oxygen Delivery Method: Room Air Airway Assessment Mouth opens: >3 cm Mallampati Score: IV Teeth Condition: Caps/Crowns (Patient has several crowns. They are all tight.) Neck Range of motion (ROM): Full ROM Focused Labs Anesthesia Preop lab: CBC WBC 5.4 K/mm3 (4.4-11.0) 11/27/23 13:00 11/27/23 RBC 3.39 M/mm3 (4.2-5.4) L 11/27/23 13:00 11/27/23 Hgb 10.6 g/dL (12.0-15.0) L 11/27/23 13:00 4 Hct 33.7 % (37-47) L 11/27/23 13:00 11/27/23 Plt Count 273 K/mm3 (150-450) 11/27/23 13:00 11/27/23 CHEMISTRY Potassium 4.3 mmol/L (3.5-5.1) 11/27/23 13:00 11/27/23 Sodium 140 mmol/L (136-145) 11/27/23 13:00 11/27/23 BUN 14 mg/dL (7-18) 11/27/23 13:00 11/27/23 Creatinine 0.83 mg/dL (0.55-1.02) 11/27/23 13:00 11/27/23 Glucose 109 mg/dL (74-106) H 11/27/23 13:00 11/27/23 COAG INR 2.1 06/30/24 09:11 06/30/24 Pre-Assessment Diagnosis/Proposed Procedure Planned Operative Procedure(s): EGD, COLONOSCOPY Anesthesia History Anesthesia History - glass or mirror inspector: Anesthesia History - glass or mirror inspector Hx Hospitalization No 06/30/24 16:03 Any Problems With Anesthesia No 06/30/24 16:03 Cholinesterase deficiency No 06/30/24 16:03 You/Your Family Experience No 06/30/24 16:03 fever (hyperthermia) with Relationship Recent Exposure to Contagious No 07/02/24 05:56 Disease Does patient have nerve No 06/30/24 16:03 stimulator Patient instructed to have device shut off --Does patient have Pacemaker No 07/02/24 05:58 or ICD? When Was Last Pacemaker Check QUESTION #4 FULL TEXT: You/Your Family Experience fever (hyperthermia) with Anesthesia Last Oral Intake Last Oral intake: Last Oral Intake NPO since 02:00 07/02/24 05:58 Meds taken in AM with sips of Yes 07/02/24 05:58 water? Meds patient instructed to take am of surgery Any additional information?: Yes NPO since: 02:00 (Patient finished prep at 2 AM.) Meds taken in AMwith sips of water?: Yes Meds patient instructed to take am of surgery: Amoxicillin prophylaxis. PONV PONV - glass or mirror inspector: PONV - glass or mirror inspector Female Yes 06/30/24 16:03 HX of Motion Sickness No 06/30/24 16:03 HX of N/V After Surgery No 06/30/24 16:03 Non-Smoker Yes 06/30/24 16:03 Duration of Surgery greater No 06/30/24 16:03 than 60 minutes Number of Risk Factors 2 06/30/24 16:03 PONV Score Moderate Risk 06/30/24 16:03 Height & Weight Height & Weight: Anesthesia: Height & Weight Height 5 ft 6 in 07/02/24 05:58 Weight: 88.541 kg 07/02/24 05:58 Body Mass Index (BMI) 31.5 07/02/24 05:58 Respiratory Assessment Respiratory Assessment - glass or mirror inspector: Respiratory Tract Infection Hx - glass or mirror inspector Hx Respiratory Tract Infection No 06/30/24 16:03 STOP Sleep Apnea STOP Sleep Apnea - glass or mirror inspector: STOP Sleep Apnea - glass or mirror inspector Hx Hypertension No 06/30/24 16:03 Hx Sleep Apnea No 06/30/24 16:03 CPAP BIPAP Do you snore loudly (louder No 06/30/24 16:03 than talking or can be heard Do you often feel tired/ No 06/30/24 16:03 fatigued/ sleepy during daytime? Has anyone observed you stop No 06/30/24 16:03 breathing during sleep? STOP Results Negative 06/30/24 16:03 QUESTION #5 FULL TEXT : Do you snore loudly (louder than talking or can be heard through closeddoors)? 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 Specify any problems Hx of Preganancy in last 3 No 06/30/24 16:03 Months Nurse Filling Out Transfusion [facility] 06/30/24 16:03 & Questions: Date: 06/30/24 06/30/24 16:03 Time: 16:06/30/24 16:03 Patient unable to answer at this time (ie. confused, unrespo /Reproduction History /Reproductive History - glass or mirror inspector: /Reproductive Hx- glass or mirror inspector Hx Now No 06/30/24 16:03 Gestational Age (in weeks): EDC: Hx Hx Para Hx Section SAB Active Medications Active Medications: Current Medications Generic Name Dose Route Start Last Admin Trade Name Freq PRN Reason Stop Dose Admin Lactated Ringer's 1,000 mls @ 15 mls/hr 07/02/24 05:45 07/02/24 06:16 IV 15 mls/hr .Q48H KRYSTLE Administration PFSH Medical History Post-menopausal Wears glasses Alcohol use History of steroid therapy High cholesterol Back pain History of diverticulitis Gastric reflux Non-smoker History of edema History of echocardiogram Cardiology follow-up 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 Hypertension History of transcatheter aortic valve replacement (TAVR) Hyperlipidemia Anemia Ascending aorta dilatation Arthritis DVT (deep venous thrombosis) Factor II deficiency Home Medications ?Medication ?Instructions ?Recorded ?Last Taken ?Type aspirin 81 mg tablet,delayed 81 mg PO QDAY 03/31/24 History release (Adult Aspirin Regimen) clobetasol 0.05 % topical cream 1 applic topical BID P RN ECZEMA 03/31/24 Unknown History warfarin 4 mg tablet 4 mg PO QDAY 03/31/24 History warfarin 5 mg tablet 5 mg PO QDAY 03/31/24 History atorvastatin 40 mg tablet 40 mg PO QDAY 04/27/2407/01 History cholecalciferol (vitamin D3) 250 250 mcg PO QDAY 04/2707/01/24 History mcg (10,000 unit) capsule esomeprazole magnesium 40 mg 40 mg PO QDAY #90 caps 07/01/24 Rx capsule,delayed release gruns daily comprehensive nutrition 1 ea PO DAILY 05/1906/30/24 History hydrocortisone 2.5 % topical cream 1 applic DE QD-BID PRN hemorrhoids 04/27/24 Unknown Rx with perineal applicator #30 grams (Anusol-HC) ondansetron HCl 4 mg tablet 4 mg PO .COMPLEX #5 tabs 0 04/27/24 07/01/24 Rx peg 3350-sod sulf,[id number]-pek-ckc See Rx Instructions PO .COMPLEX #2 04/27/24 07/02/24 Rx 178.7-7.3-0.5-1.12-0.9 gram oral mL soln (Suflave) thiamine HCl (vitamin B1) 50 mg 50 mg PO QDAY 04/27/24 07/01/24 History tablet amoxicillin 500 mg capsule 500 mg PO ONCE #4 caps 08/1907/02/24 05:30 Rx Allergy/AdvReac Type Severity Reaction Status Date / Time latex Allergy Intermediate Itching Verified 07/02/24 05:54 Family History Mother No problems noted. Father No problems noted. Surgical History History of discectomy History of cholecystectomy Social History Smoking Status: Never smoker alcohol intake: current substance use type: does not use caffeine: Yes Review of Systems (Anesthesia) ROS Narrative System reviewed and no additional complaints, except as documented. 07/02/24 0631 conrad HOFF> Date _ Dmitriy Bowen MD Cosigner Signature: Date CC: ~ Signed [facility]04-17-2025 Evaluation note* Diagnosis Onset Date Resolution Status Admit Date Degenerative disc disease, lumbar acute June 11, 2024 1:20pm Constipation acute July 02 5:27am Dysphagia acute July 02, 2024 5:27am Family history of colon canc er in mother acute July 02, 2024 5: 27am Personal history of colonic polyps acute July 02, 2024 5: 27am GERD (gastroesophageal reflu x disease) acute July 21, 2024 1 1:01am Hemorrhoids acute July 21 11:01am Personal history of colonic polyps acute July 21, 2024 1 1:01am [facility] Work Phone: 1(535) 242-452504-17-2025 Evaluation note* Diagnosis Onset Date Resolution Status Admit Date Degenerative disc disease, lumbar acute June 11, 2024 1:20pm Constipation acute July 02 5:27am Personal history of colonic polyps acute July 02, 2024 5: 27am Dysphagia resolved July 02, 2024 5:27am Family history of colon canc er in mother inactive July 02, 2024 5: 27am GERD (gastroesophageal reflu x disease) acute July 21, 2024 1 1:01am Hemorrhoids acute July 21 11:01am Personal history of colonic polyps acute July 21, 2024 1 1:01am Degenerative disc disease, lumbar acute October 06 9:50am GERD (gastroesophageal reflu x disease) acute October 06 9:50am intermediate (current) use of anticoagulants acute October 06 9:50am History of DVT (deep vein thrombosis) noneactive October 06 9:50am Swelling of left foot noneactive Sep 9:50am Establishing care with new doctor, encounter for noneactive September 9:50am Screening for breast cancer noneacti ve October 06, 2024 9:50am [facility] Work Phone: 1(428) 498-974203-17-2025 Radiology Diagnostic study note [facility] Imaging Services [address] [place] [address] Esophagus Dual Contrast MR#: [id number] Acct: [id number] Name: VICENTE CASTELLANOS Rep #: [id number] : 1955 F 68 From: Ezequiel Cortez MD PCP: Care Physician,No Primary Status: REG CLI Study:Esophagus Dual Contrast Date of Exam: 05/11/24 Exam# [id number] Ordering Dr: Ciera Meier PROCEDURE: ESOPHAGUS DUAL CONTRAST 05/11/2024 REASON FOR EXAM: DYSPHAGIA - WITH TABLET TECHNIQUE: FLUOROSCOPIC TIME: 47 seconds. FLUOROGRAPHIC IMAGES: 76 COMPARISON: None. FINDINGS: The patient ingested barium. Multiple images were obtained. The esophagus is unremarkable. No evidence of obstruction. No evidence of gastroesophageal reflux. No mass lesion is seen. The patient ingested a 12 mm tablet the barium without any difficulty. RAD/Esophagus Dual Contrast IMPRESSION: Unremarkable esophagram. Reading Location: [place] [address] CC: SOHAIL Meier; No Primary Care Physician ~ Adult Basic Education Manager: Signed [facility]03-03-2025 Evaluation note* Diagnosis Onset Date Resolution Status Admit Date Constipation acute April 27 1:19pm Dysphagia acute April 27 1:19pm Family history of colon canc er in mother acute April 27, 2024 1:19pm Personal history of colonic polyps acute April 27, 2024 1:19pm Aortic valve disease acute Garrett h 2024 11:14am Ascending aorta dilatation acute April 28, 2024 11:14am Factor II deficiency acute Garrett h 2024 11:14am Hyperlipidemia acute April 28, 2024 11:14am Hypertension chronic April 28 11:14am [facility] Work Phone: [phone]) 692-427703-03-2025 Evaluation note* Diagnosis Onset Date Resolution Status Admit Date Constipation acute April 27, 025 1:19pm Dysphagia acute April 27 1:19pm Family history of colon canc er in mother acute April 27, 2024 1:19pm Personal history of colonic polyps acute April 27, 2024 1:19pm Aortic valve disease acute Garrett h 2024 11:14am Ascending aorta dilatation acute April 28, 2024 11:14am Factor II deficiency acute Garrett h 2024 11:14am Hyperlipidemia acute April 28, 2024 11:14am Hypertension chronic April 28, 025 11:14am Degenerative disc disease, lumbar acute June 11, 2024 1:20pm Constipation acute July 02 5:27am Dysphagia acute July 02, 2024 5:27am Family history of colon canc er in mother acute July 02, 2024 5: 27am Personal history of colonic polyps acute July 02, 2024 5: 27am [facility] Work Phone: [phone]) 886-505303-03-2025 Evaluation note* Diagnosis Onset Date Resolution Status Admit Date Constipation acute April 27, 1:19pm Dysphagia acute April 27 1:19pm Family history of colon canc er in mother acute April 27, 2024 1:19pm Personal history of colonic polyps acute April 27, 2024 1:19pm Aortic valve disease acute Garrett h 2024 11:14am Ascending aorta dilatation acute April 28, 2024 11:14am Factor II deficiency acute Garrett h 2024 11:14am Hyperlipidemia acute April 28, 2024 11:14am Hypertension chronic April 28 025 11:14am Degenerative disc disease, lumbar acute June 11, 2024 1:20pm Constipation acute July 02 5:27am Dysphagia acute July 02, 2024 5:27am Family history of colon canc er in mother acute July 02, 2024 5: 27am Personal history of colonic polyps acute July 02, 2024 5: 27am Hemorrhoids acute July 21 11:01am [facility] Work Phone: Hospital Discharge instructionsAmbulatory Orders* Colon & Rectal Surgery Location: None Selected [facility] Work Phone: Hospital Discharge instructionsAdditional Instructions You do not have an acute blood clot in your leg today. You do have a small cyst behind your knee called a Reynaga's cyst which is likely caused your discomfort. You are safe to travel. Follow-up with your family doctor as needed.[facility] Work Phone: Chief Complaint and Reason for Visit Chief Complaint Admit Date Pre colon/hemorrhoids April 27, 2024 1: 19pm EST CARE (Self) April 28, 2024 11:1 4am DYSPHAGIA May 11, 2024 9:1 3am E ORDER May 12, 2024 8:2 1am Reason for Visit Admit Date Constipation April 27, 2024 1:19 pm Dysphagia April 27, 2024 1:19 pm Family history of colon cancer in mother April 27, 2024 1:19pm Personal history of colonic polyps April 27, 2024 1:19pm Aortic valve disease April 28, 2024 11: 14am Ascending aorta dilatation April 28 11:14am Factor II deficiency April 28, 2024 11: 14am Hyperlipidemia April 28, 2024 11:1 4am Hypertension April 28, 2024 11:1 4am Chief Complaint Admit Date Pre colon/hemorrhoids April 27, 2024 1: 19pm EST CARE (Self) April 28, 2024 11:1 4am DYSPHAGIA May 11, 2024 9:1 3am E ORDER May 12, 2024 8:2 1am S/P AVR June 10, 2024 2:4 6pm LUMBAR SPINE June 11, 2024 1:2 0pm Room 4 June 11, 2024 1:4 6pm Reason for Visit Admit Date Constipation April 27, 2024 1:19 pm Dysphagia April 27, 2024 1:19 pm Family history of colon cancer in mother April 27, 2024 1:19pm Personal history of colonic polyps April 27, 2024 1:19pm Aortic valve disease April 28, 2024 11: 14am Ascending aorta dilatation April 28 11:14am Factor II deficiency April 28, 2024 11: 14am Hyperlipidemia April 28, 2024 11:1 4am Hypertension April 28, 2024 11:1 4am Degenerative disc disease, lumbar June 11, 2024 1:20pm Constipation July 02, 2024 5:27am Dysphagia July 02, 2024 5:27am Family history of colon cancer in mother July 02, 2024 5:27am Personal history of colonic polyps July 022024 5:27am Chief Complaint Admit Date Pre colon/hemorrhoids April 27, 2024 1: 19pm EST CARE (Self) April 28, 2024 11:1 4am DYSPHAGIA May 11, 2024 9:1 3am E ORDER May 12, 2024 8:2 1am S/P AVR June 10, 2024 2:4 6pm LUMBAR SPINE June 11, 2024 1:2 0pm Room 4 June 11, 2024 1:4 6pm Test Result July 21, 2024 11:01 am Reason for Visit Admit Date Constipation April 27, 2024 1:19 pm Dysphagia April 27, 2024 1:19 pm Family history of colon cancer in mother April 27, 2024 1:19pm Personal history of colonic polyps April 27, 2024 1:19pm Aortic valve disease April 28, 2024 11: 14am Ascending aorta dilatation April 28 11:14am Factor II deficiency April 28, 2024 11: 14am Hyperlipidemia April 28, 2024 11:1 4am Hypertension April 28, 2024 11:1 4am Degenerative disc disease, lumbar June 11, 2024 1:20pm Constipation July 02, 2024 5:27am Dysphagia July 02, 2024 5:27am Family history of colon cancer in mother July 02, 2024 5:27am Personal history of colonic polyps July 022024 5:27am Hemorrhoids July 21, 2024 11:01 am Chief Complaint Admit Date DYSPHAGIA May 11, 2024 9:1 3am E ORDER May 12, 2024 8:2 1am S/P AVR June 10, 2024 2:4 6pm LUMBAR SPINE June 11, 2024 1:2 0pm Room 4 June 11, 2024 1:4 6pm Test Result July 21, 2024 11:01 am LOWER EXT September 01, 2024 7:56a m Reason for Visit Admit Date Degenerative disc disease, lumbar June 11, 2024 1:20pm Constipation July 02, 2024 5:27am Dysphagia July 02, 2024 5:27am Family history of colon cancer in mother July 02, 2024 5:27am Personal history of colonic polyps July 022024 5:27am GERD (gastroesophageal reflux disease) M ay 2024 11:01am Hemorrhoids July 21, 2024 11:01 am Personal history of colonic polyps June 262024 11:01am Chief Complaint Admit Date S/P AVR June 10, 2024 2:4 6pm LUMBAR SPINE June 11, 2024 1:2 0pm Room 4 June 11, 2024 1:4 6pm Test Result July 21, 2024 11:01 am LOWER EXT September 01, 2024 7:56a m LLE SWELLING September 01, 2024 8:37a m 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 CARE-[facility] PATIENT October 06 9:50am Reason for Visit Admit Date Degenerative disc disease, lumbar June 11, 2024 1:20pm Constipation July 02, 2024 5:27am Personal history of colonic polyps July 022024 5:27am Dysphagia July 02, 2024 5:27am Family history of colon cancer in mother July 02, 2024 5:27am GERD (gastroesophageal reflux disease) M ay 2024 11:01am Hemorrhoids July 21, 2024 11:01 am Personal history of colonic polyps June 262024 11:01am Degenerative disc disease, lumbar October 06, 2024 9:50am GERD (gastroesophageal reflux disease) A ugust 2024 9:50am 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 Yes June 30, 2024 4:03pm Advance Directive Response Recorded Date/ Time Do you have a Healthcare Pow er of [employer] Making Machine Operator? Yes September 01, 2024 9:11am Name of Medical Power of Cart[employer] Making Machine Operator yamilet crocker n-daughter September 01, 2024 9:11am Do you have a Healthcare Pow er of Carton Making Machine Operator? Yes June 30, 2024 4:03pm Family History No Family History Records Found Relationship Condition Age at Onset Recorded Date/T vanessa father Sudden cardiac 40 Myocardial infarction Unknown grandfather Myocardial infarction Unknown grandmother Pneumonia Unknown grandmother Myocardial infarction Unknown mother Malignant neoplasm of colon Unknown Arthritis Unknown Heart disease Unknown Cerebrovascular accident (CVA) Unknown Rogel's esophagus Unknown daughter Disorder of liver Unknown Alcoholism Unknown daughter Asthma Unknown daughter Alcoholism Unknown Hepatic cirrhosis Unknown Summary Purpose Additional Source Comments Care Teams (unrecognized sec tion and content) Team Status: Active Member Role Status Dates No Primary Care Physician Primary Care Provider Active Team Status: Inactive Member Role Status Dates SOHAIL Perea Attending Provider Active Start: April 27, 2024 End: April 27, 2024 Team Status: Inactive Member Role Status Dates Dr. Emory Adams MD Attending Provider Active Start: April 28, 2024 End: April 28, 2024 Team Status: Inactive Member Role Status Dates SOHAIL Perea Attending Provider Active Start: May 11, 2024 End: May 11, 2024 SOHAIL Perea Referring Provider Active Start: May 11, 2024 End: May 11, 2024 No Primary Care Physician Primary Care Provider Active Start: May 11, 2024 End: May 11, 2024 Team Status: Active Member Role Status Dates No Primary Care Physician Primary Care Provider Active Start: May 12, 2024 Dr. Emory Adams MD Attending Provider Active Start: May 12, 2024 Dr. Emory Adams MD Referring Provider Active Start: May 12, 2024 Team Status: Inactive Member Role Status Dates No Primary Care Physician Primary Care Provider Active Start: May 12, 2024 End: May 12, 2024 Dr. Emory Adams MD Attending Provider Active Start: May 12, 2024 End: May 12, 2024 Dr. Emory Adams MD Referring Provider Active Start: May 12, 2024 End: May 12, 2024 Team Status: Active Member Role Status Dates No Primary Care Physician Primary Care Provider Active Start: June 02, 2024 No Primary Care Physician Attending Provider Active Start: June 02, 2024 Team Status: Active Member Role Status Dates No Primary Care Physician Primary Care Provider Active Start: June 09, 2024 No Primary Care Physician Attending Provider Active Start: June 09, 2024 Team Status: Inactive Member Role Status Dates Dr. Emory Adams MD Attending Provider Active Start: June 10, 2024 End: June 10, 2024 Dr. Emory Adams MD Referring Provider Active Start: June 10, 2024 End: June 10, 2024 No Primary Care Physician Primary Care Provider Active Start: June 10, 2024 End: June 10, 2024 Team Status: Active Member Role Status Dates No Primary Care Physician Primary Care Provider Active Start: June 10, 2024 Dr. Gamal Boggs MD Attending Provider Active S tart: June 10, 2024 Team Status: Inactive Member Role Status Dates No Primary Care Physician Primary Care Provider Active Start: June 11, 2024 End: June 11, 2024 No Primary Care Physician Referring Provider Active Start: June 11, 2024 End: June 11, 2024 FANTASMA Shanks Attending Provider Active Star t: June 11, 2024 End: June 11, 2024 Team Status: Inactive Member Role Status Dates No Primary Care Physician Primary Care Provider Active Start: June 11, 2024 End: June 11, 2024 Dr. Gamal Boggs MD Attending Provider Active S tart: June 11, 2024 End: June 11, 2024 Team Status: Active Member Role Status Dates No Primary Care Physician Primary Care Provider Active Start: June 16, 2024 No Primary Care Physician Attending Provider Active Start: June 16, 2024 Team Status: Active Member Role Status Dates No Primary Care Physician Primary Care Provider Active Start: June 23, 2024 No Primary Care Physician Attending Provider Active Start: June 23, 2024 Team Status: Active Member Role Status Dates No Primary Care Physician Primary Care Provider Active Start: June 30, 2024 No Primary Care Physician Attending Provider Active Start: June 30, 2024 Team Status: Inactive Member Role Status Dates Dr. Williams Madison DO Attending Provider Active Start: July 02, 2024 End: July 02, 2024 No Primary Care Physician Primary Care Provider Active Start: July 02, 2024 End: July 02, 2024 No Primary Care Physician Referring Provider Active Start: July 02, 2024 End: July 02, 2024 Team Status: Active Member Role Status Dates Dr. Williams Madison DO Attending Provider Active Start: July 02, 2024 Dr. Williams Madison DO Other Provider Active St art: July 02, 2024 No Primary Care Physician Primary Care Provider Active Start: July 02, 2024 No Primary Care Physician Referring Provider Active Start: July 02, 2024 Team Status: Active Member Role Status Dates No Primary Care Physician Primary Care Provider Active Start: July 07, 2024 No Primary Care Physician Attending Provider Active Start: July 07, 2024 Team Status: Inactive Member Role Status Dates SOHAIL Perea Attending Provider Active Start: July 21, 2024 End: July 21, 2024 No Primary Care Physician Primary Care Provider Active Start: July 21, 2024 End: July 21, 2024 No Primary Care Physician Referring Provider Active Start: July 21, 2024 End: July 21, 2024 Team Status: Active Member Role/Relationship Status Dates No Primary Care Physician Primary Care Provider Active Team Status: Inactive Member Role/Relationship Status Dates SOHAIL Perea Attending Provider Active Start: May 11, 2024 End: May 11, 2024 SOHAIL Perea Referring Provider Active Start: May 11, 2024 End: May 11, 2024 No Primary Care Physician Primary Care Provider Active Start: May 11, 2024 End: May 11, 2024 Team Status: Inactive Member Role/Relationship Status Dates No Primary Care Physician Primary Care Provider Active Start: May 12, 2024 End: May 12, 2024 Dr. Emory Adams MD Attending Provider Active Start: May 12, 2024 End: May 12, 2024 Dr. Emory Adams MD Referring Provider Active Start: May 12, 2024 End: May 12, 2024 Team Status: Active Member Role/Relationship Status Dates No Primary Care Physician Primary Care Provider Active Start: June 02, 2024 No Primary Care Physician Attending Provider Active Start: June 02, 2024 Team Status: Active Member Role/Relationship Status Dates No Primary Care Physician Primary Care Provider Active Start: June 09, 2024 No Primary Care Physician Attending Provider Active Start: June 09, 2024 Team Status: Inactive Member Role/Relationship Status Dates Dr. Emory Adams MD Attending Provider Active Start: June 10, 2024 End: June 10, 2024 Dr. Emory Adams MD Referring Provider Active Start: June 10, 2024 End: June 10, 2024 No Primary Care Physician Primary Care Provider Active Start: June 10, 2024 End: June 10, 2024 Team Status: Active Member Role/Relationship Status Dates No Primary Care Physician Primary Care Provider Active Start: June 10, 2024 Dr. Gamal Boggs MD Attending Provider Active S tart: June 10, 2024 Team Status: Inactive Member Role/Relationship Status Dates No Primary Care Physician Primary Care Provider Active Start: June 11, 2024 End: June 11, 2024 No Primary Care Physician Referring Provider Active Start: June 11, 2024 End: June 11, 2024 FANTASMA Shanks Attending Provider Active Star t: June 11, 2024 End: June 11, 2024 Team Status: Inactive Member Role/Relationship Status Dates No Primary Care Physician Primary Care Provider Active Start: June 11, 2024 End: June 11, 2024 Dr. Gamal Boggs MD Attending Provider Active S tart: June 11, 2024 End: June 11, 2024 Team Status: Active Member Role/Relationship Status Dates No Primary Care Physician Primary Care Provider Active Start: June 16, 2024 No Primary Care Physician Attending Provider Active Start: June 16, 2024 Team Status: Active Member Role/Relationship Status Dates No Primary Care Physician Primary Care Provider Active Start: June 23, 2024 No Primary Care Physician Attending Provider Active Start: June 23, 2024 Team Status: Active Member Role/Relationship Status Dates No Primary Care Physician Primary Care Provider Active Start: June 30, 2024 No Primary Care Physician Attending Provider Active Start: June 30, 2024 Team Status: Inactive Member Role/Relationship Status Dates Dr. Williams Madison DO Attending Provider Active Start: July 02, 2024 End: July 02, 2024 No Primary Care Physician Primary Care Provider Active Start: July 02, 2024 End: July 02, 2024 No Primary Care Physician Referring Provider Active Start: July 02, 2024 End: July 02, 2024 Team Status: Active Member Role/Relationship Status Dates Dr. Williams Madison DO Attending Provider Active Start: July 02, 2024 Dr. Williams Madison DO Other Provider Active St art: July 02, 2024 No Primary Care Physician Primary Care Provider Active Start: July 02, 2024 No Primary Care Physician Referring Provider Active Start: July 02, 2024 Team Status: Active Member Role/Relationship Status Dates No Primary Care Physician Primary Care Provider Active Start: July 07, 2024 No Primary Care Physician Attending Provider Active Start: July 07, 2024 Team Status: Inactive Member Role/Relationship Status Dates SOHAIL Perea Attending Provider Active Start: July 21, 2024 End: July 21, 2024 No Primary Care Physician Primary Care Provider Active Start: July 21, 2024 End: July 21, 2024 No Primary Care Physician Referring Provider Active Start: July 21, 2024 End: July 21, 2024 Team Status: Active Member Role/Relationship Status Dates No Primary Care Physician Primary Care Provider Active Start: July 28, 2024 No Primary Care Physician Attending Provider Active Start: July 28, 2024 Team Status: Active Member Role/Relationship Status Dates No Primary Care Physician Primary Care Provider Active Start: August 04, 2024 No Primary Care Physician Attending Provider Active Start: August 04, 2024 Team Status: Active Member Role/Relationship Status Dates No Primary Care Physician Primary Care Provider Active Start: August 11, 2024 No Primary Care Physician Attending Provider Active Start: August 11, 2024 Team Status: Active Member Role/Relationship Status Dates No Primary Care Physician Primary Care Provider Active Start: August 18, 2024 No Primary Care Physician Attending Provider Active Start: August 18, 2024 Team Status: Active Member Role/Relationship Status Dates No Primary Care Physician Primary Care Provider Active Start: August 25, 2024 No Primary Care Physician Attending Provider Active Start: August 25, 2024 Team Status: Active Member Role/Relationship Status Dates No Primary Care Physician Primary Care Provider Active Start: September 01, 2024 No Primary Care Physician Attending Provider Active Start: September 01, 2024 Team Status: Inactive Member Role/Relationship Status Dates No Primary Care Physician Primary Care Provider Active Start: September 01, 2024 End: September 01, 2024 Dr. Vivienne Martinez DO Emergency Provider Active Start: September 01, 2024 End: September 01, 2024 Team Status: Active Member Role/Relationship Status Dates No Primary Care Physician Primary Care Provider Active Start: June 09, 2024 No Primary Care Physician Attending Provider Active Start: June 09, 2024 Team Status: Inactive Member Role/Relationship Status Dates Dr. Emory Adams MD Attending Provider Active Start: June 10, 2024 End: June 10, 2024 Dr. Emory Adams MD Referring Provider Active Start: June 10, 2024 End: June 10, 2024 No Primary Care Physician Primary Care Provider Active Start: June 10, 2024 End: June 10, 2024 Team Status: Active Member Role/Relationship Status Dates No Primary Care Physician Primary Care Provider Active Start: June 10, 2024 Dr. Gamal Boggs MD Attending Provider Active S tart: June 10, 2024 Team Status: Inactive Member Role/Relationship Status Dates No Primary Care Physician Primary Care Provider Active Start: June 11, 2024 End: June 11, 2024 No Primary Care Physician Referring Provider Active Start: June 11, 2024 End: June 11, 2024 FANTASMA Shanks Attending Provider Active Star t: June 11, 2024 End: June 11, 2024 Team Status: Inactive Member Role/Relationship Status Dates No Primary Care Physician Primary Care Provider Active Start: June 11, 2024 End: June 11, 2024 Dr. Gamal Boggs MD Attending Provider Active S tart: June 11, 2024 End: June 11, 2024 Team Status: Active Member Role/Relationship Status Dates No Primary Care Physician Primary Care Provider Active Start: June 16, 2024 No Primary Care Physician Attending Provider Active Start: June 16, 2024 Team Status: Active Member Role/Relationship Status Dates No Primary Care Physician Primary Care Provider Active Start: June 23, 2024 No Primary Care Physician Attending Provider Active Start: June 23, 2024 Team Status: Active Member Role/Relationship Status Dates No Primary Care Physician Primary Care Provider Active Start: June 30, 2024 No Primary Care Physician Attending Provider Active Start: June 30, 2024 Team Status: Inactive Member Role/Relationship Status Dates Dr. Williams Madison DO Attending Provider Active Start: July 02, 2024 End: July 02, 2024 No Primary Care Physician Primary Care Provider Active Start: July 02, 2024 End: July 02, 2024 No Primary Care Physician Referring Provider Active Start: July 02, 2024 End: July 02, 2024 Team Status: Active Member Role/Relationship Status Dates Dr. Williams Madison DO Attending Provider Active Start: July 02, 2024 Dr. Williams Madison DO Other Provider Active St art: July 02, 2024 No Primary Care Physician Primary Care Provider Active Start: July 02, 2024 No Primary Care Physician Referring Provider Active Start: July 02, 2024 Team Status: Active Member Role/Relationship Status Dates No Primary Care Physician Primary Care Provider Active Start: July 07, 2024 No Primary Care Physician Attending Provider Active Start: July 07, 2024 Team Status: Inactive Member Role/Relationship Status Dates SOHAIL Perea Attending Provider Active Start: July 21, 2024 End: July 21, 2024 No Primary Care Physician Primary Care Provider Active Start: July 21, 2024 End: July 21, 2024 No Primary Care Physician Referring Provider Active Start: July 21, 2024 End: July 21, 2024 Team Status: Active Member Role/Relationship Status Dates No Primary Care Physician Primary Care Provider Active Start: July 28, 2024 No Primary Care Physician Attending Provider Active Start: July 28, 2024 Team Status: Active Member Role/Relationship Status Dates No Primary Care Physician Primary Care Provider Active Start: August 04, 2024 No Primary Care Physician Attending Provider Active Start: August 04, 2024 Team Status: Active Member Role/Relationship Status Dates No Primary Care Physician Primary Care Provider Active Start: August 11, 2024 No Primary Care Physician Attending Provider Active Start: August 11, 2024 Team Status: Active Member Role/Relationship Status Dates No Primary Care Physician Primary Care Provider Active Start: August 18, 2024 No Primary Care Physician Attending Provider Active Start: August 18, 2024 Team Status: Active Member Role/Relationship Status Dates No Primary Care Physician Primary Care Provider Active Start: August 25, 2024 No Primary Care Physician Attending Provider Active Start: August 25, 2024 Team Status: Active Member Role/Relationship Status Dates No Primary Care Physician Primary Care Provider Active Start: September 01, 2024 No Primary Care Physician Attending Provider Active Start: September 01, 2024 Team Status: Inactive Member Role/Relationship Status Dates No Primary Care Physician Primary Care Provider Active Start: September 01, 2024 End: September 01, 2024 Dr. Vivienne Martinez DO Attending Provider Active Start: September 01, 2024 End: September 01, 2024 Dr. Vivienne Martinez DO Emergency Provider Active Start: September 01, 2024 End: September 01, 2024 Team Status: Active Member Role/Relationship Status Dates Dr. Vinnie Su MD Attending Provider Active Start: September 01, 2024 Dr. Vivienne Martinez DO Referring Provider Active Start: September 01, 2024 Team Status: Active Member Role/Relationship Status Dates No Primary Care Physician Primary Care Provider Active Start: September 17, 2024 No Primary Care Physician Attending Provider Active Start: September 17, 2024 Team Status: Active Member Role/Relationship Status Dates No Primary Care Physician Primary Care Provider Active Start: September 22, 2024 No Primary Care Physician Attending Provider Active Start: September 22, 2024 Team Status: Active Member Role/Relationship Status Dates No Primary Care Physician Primary Care Provider Active Start: September 29, 2024 No Primary Care Physician Attending Provider Active Start: September 29, 2024 Team Status: Inactive Member Role/Relationship Status Dates Dr. Alma Sandoval MD Attending Provider Active Start: October 06, 2024 End: October 06, 2024 No Primary Care Physician Primary Care Provider Active Start: October 06, 2024 End: October 06, 2024 No Primary Care Physician Referring Provider Active Start: October 06, 2024 End: October 06, 2024 Goals (unrecognized section and content) Goals may be documented in a n alternate sectionGoals may be documented in an alternate section INFORMATION SOURCE (unrecogn ized section and content) DATE CREATED AUTHOR 10/20/2024 [facility] FOR RECORDS PERTAINING TO PATIENTS WHO ARE OR HAVE BEEN ENROLLED IN A CHEMICAL DEPENDENCY/SUBSTANCEABUSE PROGRAM, SOME INFORMATION MAY BE OMITTED. This clinical summary was aggregated from multiple sources. Caution should be exercised in using it in the provision of clinical care. This summary normalizes information from multiple sources, and as a consequence, information in this document may materially change the coding, format and clinical context of patient data. In addition, data may be omitted in some cases. CLINICAL DECISIONS SHOULD BE BASED ON THE PRIMARY CLINICAL RECORDS. [employer] provides no warranty or guarantee of the accuracy or completeness of information in this document.
== END | disposition home or self-care (01) ==
LOC: OPBD 14:57 → RAD 15:43
PROVIDERS: PCP Internal Medicine; Referring Provider Internal Medicine; Visit Provider Internal Medicine
DX: Z12.31 Encounter for screening mammogram for malignant neoplasm of breast (principal); Z78.0 Asymptomatic menopausal state; M79.89 Other specified soft tissue disorders; Z80.3 Family history of malignant neoplasm of breast; K21.9 Gastro-esophageal reflux disease without esophagitis; E55.9 Vitamin D deficiency, unspecified; I35.9 Nonrheumatic aortic valve disorder, unspecified; Z79.01 Long term (current) use of anticoagulants
CPT/HCPCS: 36415; 73630; 77063; 77067; 77080; 80053; 82306; 83735; 85025